=== PATIENT | male | born 1945 | race Hispanic/Latino ===

== ENCOUNTER 2018-05-26 19:06 | Inpatient (IN) | payer SELFPAY ==
[~2018-05-26 19:06] MED LIST: ISOVUE-370 76%-LOCM 1 ML ONE
[2018-05-26 19:41] LABS: #Eosinphils 0.4 thou/uL (0.0-0.7); #Lymphocytes 2.4 thou/uL (1.20-3.40); #Monocytes 0.8 thou/uL (0.11-0.59); #Neutrophils 3.4 thou/uL (1.40-6.50); %Basophils 0.7 % (0.0-1.0); %Eosinophils 6.1 % (0.0-10.0); %Lymphocytes 33.7 % (21.0-51.0); %Monocytes 11.5 % (0.0-10.0); %Neutrophils 48.1 % (42.0-75.0); Hemoglobin 13.8 g/dL (14.0-18.0); Mean Corpuscular Hemoglobin 31.3 pg (27.0-31.0); Mean Corpuscular Volume 94.9 fL (78.0-98.0); Mean Platelet Volume 9.1 fL (7.4-10.4); Platelet Count 197 thou/uL (130-400); RBC Distribution Width 12.1 % (11.5-14.5); Red Blood Cell (RBC) Count 4.41 mill/uL (4.70-6.10)
[2018-05-26 20:10] LABS: ALT (SGPT) 30 U/L (8-55); Albumin 4.2 g/dL (3.4-4.8); Alkaline Phosphatase 96 U/L (40-150); Anion Gap 13 mmol/L (10-20); BUN (Urea Nitrogen) 8 mg/dL (8.4-25.7); Bilirubin, Total 0.4 mg/dL (0.2-1.2); Calc. Creatinine Clearance 0 mL/min (70-130); Carbon Dioxide 23 mmol/L (23-31); Chloride 107 mmol/L (98-107); Estimated GFR-MDRD 73; Globulin 3.1 g/dL (2.4-3.5); Glucose 143 mg/dL (83-110); Lipase 31 U/L (8-78); Potassium 3.2 mmol/L (3.5-5.1); Protein, Total 7.3 g/dL (5.8-8.1); Sodium 140 mmol/L (136-145)
--- NOTE | 2018-05-26 20:22 | RAD ---
EXAM: CHEST ONE VIEW 05/26/18 HISTORY: Chest pain for two weeks. FINDINGS: Monitor leads overlie the chest. Borderline sized heart. Mild biapical pleural thickening. No conflue nt pneumonia, overt edema, or pleural effusions. IMPRESSION: No significant acute intrathoracic disease. POS: [facility]
[2018-05-26 20:40] LABS: AST (SGOT) 38 U/L (5-34)
[2018-05-26] MEDS ORDERED: cloNIDine 0.1 MG TAB ONE (21:01)
[2018-05-26] MEDS ORDERED: Furosemide 40 MG/4 ML VIAL ONE (21:01)
[2018-05-26] MEDS ORDERED: Furosemide 20 MG/2 ML VIAL ONE (21:01)
[2018-05-26] MEDS ORDERED: Nitroglycerin 2% Ointment 1 INCH/1 GM Packet ONE (21:01)
--- NOTE | 2018-05-26 21:39 | CT ---
EXAM: CT ANGIOGRAM CHEST WITH 3D RENDERIN05/26/18 HISTORY: Dyspnea and shortness of breath. Increasing dyspnea on exertion. There is some minimal parenchymal changes in the lower lobes which are somewhat linear. Evidence for minimal subsegmental atelectasis or possibly mild pneumonitis, more so on the right base. No evidence for confluent lobar pneumonia. No CT evidence for acute pulmonary embolism. No evidence for aortic a neurysm. No significant pleural effusion or pericardial effusion. Small gallbladder stone without lisa dence for acute cholecystitis. IMPRESSION: Minimal linear parenchymal changes in the lung bases, more so on the right base, possibly chronic howard nge versus subsegmental atelectasis versus mild pneumonitis without evidence for confluent pneumonia. No convincing CT evidence for acute pulmonary embolism. No evidence for aortic aneurysm. Small galls tone. POS: [facility]
[2018-05-26 22:50] LABS: Troponin I 0.026 ng/mL (< 0.028)
[2018-05-26] MEDS ORDERED: Ondansetron PF 4 MG/2 ML Vial IVP PRN (23:59)
[2018-05-26] MEDS ORDERED: Acetaminophen 325 MG TAB PO PRN (23:59)
[2018-05-26] MEDS ORDERED: Ondansetron ODT 4 MG TAB SL PRN (23:59)
[2018-05-27 02:45] LABS: Troponin I 0.026 ng/mL (< 0.028)
[2018-05-27] MEDS ORDERED: Bisacodyl 5 MG TAB PO PRN (03:29)
[2018-05-27] MEDS ORDERED: Zolpidem Tartrate 5 MG TAB PO PRN (03:29)
[2018-05-27] MEDS ORDERED: Senokot S 8.6-50 MG TAB PO PRN (03:29)
[2018-05-27 05:17] LABS: ALT (SGPT) 29 U/L (8-55); AST (SGOT) 32 U/L (5-34); Albumin 3.9 g/dL (3.4-4.8); Alkaline Phosphatase 82 U/L (40-150); Anion Gap 14 mmol/L (10-20); BUN (Urea Nitrogen) 9 mg/dL (8.4-25.7); Bilirubin, Total 0.4 mg/dL (0.2-1.2); Calc. Creatinine Clearance 69 mL/min (70-130); Calcium 8.7 mg/dL (7.8-10.44); Carbon Dioxide 22 mmol/L (23-31); Chloride 108 mmol/L (98-107); Estimated GFR-MDRD 71; Globulin 2.9 g/dL (2.4-3.5); Glucose 99 mg/dL (83-110); Magnesium 2.1 mg/dL (1.6-2.6); Potassium 3.5 mmol/L (3.5-5.1); Protein, Total 6.8 g/dL (5.8-8.1); Sodium 140 mmol/L (136-145)
[2018-05-27] MEDS: Enoxaparin Sodium 40 MG/0.4 ML SYRINGE SC SCH (08:21)
[2018-05-27] MEDS: Spironolactone 25 MG TAB PO SCH (08:21)
[2018-05-27] MEDS: Losartan 25 MG TAB PO SCH (08:21)
--- NOTE | 2018-05-27 09:08 | HP ---
CHIEF COMPLAINT: Shortness of breath. HISTORY OF PRESENT ILLNESS: This is a 72-year-old Burmese-speaking male with a daughter by the bedside, presenting with shortness of breath and increased dyspnea on exertion. The patient does have a past medical history of hypertension and extensive smoking history. Otherwise, the patient does not have any significant past medical history, presenting with shortness of breath, which has been ongoing in the past couple of months. Per the daughter, the patient has been having shortness of breath and has not progressively gotten worse to the point that in the past 2 days, the patient gets severe shortness of breath with ambulation and sleeping flat. Per medical records, the patient also endorsed experiencing shortness of breath when he moves around in his house. Otherwise, the patient denies any fever, chills, cough, palpitations, chest pain, abdominal pain, dysuria, hematuria, hematochezia, or melena. REVIEW OF SYSTEMS: Positive for dyspnea on exertion, shortness of breath. Otherwise as documented on the HPI, all systems are reviewed and are negative. PAST MEDICAL HISTORY: Hypertension. FAMILY HISTORY: Reviewed noncontributory to this visit. PAST SURGICAL HISTORY: No surgical history. SOCIAL HISTORY: The patient smokes 1 pack per day. Per daughter, in the past couple of days, the patient has smoked only 1 pack in the last 2 days, but normally the patient smokes 1 pack per day. ALLERGIES: NO KNOWN DRUG ALLERGIES. CURRENT MEDICATIONS: The patient takes, 1. Losartan 50 b.i.d. 2. Spironolactone 25 mg. PHYSICAL EXAMINATION: VITAL SIGNS: The patient's blood pressure is 167/77, pulse of 65, respiratory rate of 20, O2 saturation of 98% room air. GENERAL: The patient is lying in bed, does not appear to be in any distress. HEENT: Normocephalic and atraumatic. Pupils are equally round and reactive to light. Extraocular movements are intact. No scleral icterus. Mucous membranes are moist. NECK: Trachea is midline. Full range of motion. No JVD. LUNGS: Clear to auscultation at the anterior lung coley. On the posterior lung coley, there are no crackles that can be appreciated or any rales. CARDIAC: Positive S1 and S2. Regular rate and rhythm. No murmurs, no gallops, no rubs appreciated. ABDOMEN: Soft, nontender, and nondistended. Positive bowel sounds in all quadrants. EXTREMITIES: A 5/5 upper extremity strength with good pulses bilaterally at the upper extremity. Lower extremities, there is no edema noted, 5/5 lower extremity strength, good pulses at the DP region. NEURO: Cranial nerves 2 through 12 grossly intact. No neurologic deficits noted. SKIN: Warm, dry, and intact. DIAGNOSTIC DATA: A 12-lead EKG shows sinus rhythm with a rate of 60, left axis deviation. Chest x-ray shows no cardiomegaly, no congestive heart failure, no effusions, no free air. LABORATORY DATA: WBC is 7.0, hemoglobin is 13.8, hematocrit is 41.8, platelet count is 197. D-dimer is 0.74. Sodium is 140, potassium is 3.2, chloride is 107, carbon dioxide of 23, anion gap of 13, BUN is 8, creatinine is 1.0, GFR is 73, glucose is 143, AST is 38, ALT is 30. BNP is 417.9. Troponin is 0.018 x3 is negative. TSH is 8.3720. ASSESSMENT AND PLAN: 1. Shortness of breath, likely due to new onset chronic obstructive pulmonary disease. At this point, the patient stated that he has never had the symptoms of shortness of breath diagnosed before, and the patient has extensive smoking history. Therefore, the patient's shortness of breath might be likely due to chronic obstructive pulmonary disease. However, the patient's BNP is also elevated at 412, but the patient does not have any overt clinical symptoms of heart failure. At this point, we have consulted Cardiology. We will follow up with their recommendations. We will continue to monitor the patient with the patient's respiratory treatments. 2. History of hypertension. Currently, the patient's blood pressure is 167 systolic. We are going to continue the patient on his home medications. We will monitor the patient's blood pressure closely, and we will treat accordingly. 3. Elevated TSH. At this point, we will follow up with T4. We will continue to monitor the patient, and we will advise the patient to follow up with his primary care physician. 4. Deep venous thrombosis/gastrointestinal prophylaxis. Job ID: [id number]
[2018-05-28] MEDS: Losartan 25 MG TAB PO SCH (10:09)
[2018-05-28] MEDS: Enoxaparin Sodium 40 MG/0.4 ML SYRINGE SC SCH (10:09)
[2018-05-28] MEDS: Spironolactone 25 MG TAB PO SCH (10:09)
--- NOTE | 2018-05-28 14:03 | PDOC.PN ---
- Subjective Encounter Start Date: 05/28/18 Encounter Start Time: 14:01 Patient lying in bed with several family members at bedside. Workforce Staffing Advisor required to communicate with patient. He denies chest pain, shortness of breath improved. No Abdominal pain. Echo revealed preserved EF but did show severe aortic stenosis and moderate mitral regurg. - Objective Resuscitation Status - Order Detail: 05/27/18 03:29 Resuscitation Status Routine Resuscitation Status: FULL: Full Resuscitation MAR Reviewed: Yes Vital Signs & Weight: Vital Signs (12 hours) Temp Pulse Resp BP Pulse Ox 05/28/18 11:27 97.5 F L 65 20 145/62 H 96 05/28/18 07:25 98.1 F 67 20 123/60 96 05/28/18 04:26 97.9 F 64 18 134/60 97 Weight Weight 164 lb I&O: 05/27/18 05/28/18 05/29/18 06:59 06:59 06:59 Intake Total 350 1710 Output Total 950 Balance -600 1710 Result Diagrams: 05/26/18 19:26 05/27/18 04:31 Radiology Reviewed by me: Yes Phys Exam - Physical Examination Constitutional: NAD Northern Irish speaking HEENT: PERRLA, moist MMs, oral pharynx no lesions Neck: no nodes, no JVD, supple, full ROM Respiratory: no wheezing, no rales, no rhonchi, clear to auscultation bilateral Cardiovascular: RRR, no rub 3/6 systolic murmur Gastrointestinal: soft, non-tender, positive bowel sounds Musculoskeletal: no edema, pulses present Neurological: non-focal, normal sensation, moves all 4 limbs Lymphatic: no nodes Psychiatric: normal affect, A&O x 3 Skin: no rash, normal turgor, cap refill <2 seconds Dx/Plan (1) Severe aortic stenosis Code(s): I35.0 - NONRHEUMATIC AORTIC (VALVE) STENOSIS Status: Acute (2) Moderate mitral regurgitation Code(s): I34.0 - NONRHEUMATIC MITRAL (VALVE) INSUFFICIENCY Status: Acute (3) CHF (congestive heart failure) Code(s): I50.9 - HEART FAILURE, UNSPECIFIED Status: Acute (4) Hypertension Code(s): I10 - ESSENTIAL (PRIMARY) HYPERTENSION Status: Acute (5) COPD (chronic obstructive pulmonary disease) Status: Acute - Plan cont current plan of care, plan discussed w/ family, DVT proph w/lovenox * Continue medical management * Echo results explained to patient and family, EF 50-55% with severe and mod MR * Cardiology services following * Likely discharged if stable from cardiology
--- NOTE | 2018-05-28 16:29 | CON ---
DATE OF CONSULTATION: HISTORY OF PRESENT ILLNESS: Mr. Yoshi Lara is a 72-year-old male, who only speaks Greenlandic. Most of the history is provided from the hospital record. He has been having problems with exertional SOB and chest pressure. Over the 2 days prior to admission, he was unable to sleep flat. He denies any history of syncope or peripheral edema. PAST MEDICAL HISTORY: Hypertension. MEDICATIONS: 1. Losartan 50 mg q.a.m. 2. Spironolactone 25 daily. ALLERGIES: NONE. SOCIAL HISTORY: He smokes 1 pack per day. PHYSICAL EXAMINATION: VITAL SIGNS: Blood pressure 145/62 and pulse of 65. HEENT: PERRL. NECK: Supple. CHEST: Clear. CARDIAC: S1 and S2 normal. There is no S3 or S4. There is a 2/6 systolic ejection murmur in the aortic area. ABDOMEN: Normal bowel sounds without tenderness or organomegaly. EXTREMITIES: Revealed no clubbing, cyanosis, or edema. NEUROLOGIC: Grossly intact. SKIN: Warm and dry. LABORATORY DATA: There is no EKG on the chart. Echocardiogram revealed moderate concentric left ventricular hypertrophy with ejection fraction of 55% to 60%, moderate mitral regurgitation, severe aortic stenosis with a peak gradient of 84 mm, mean gradient of 53 mm, moderate aortic insufficiency and mild tricuspid regurgitation. Sodium 140, potassium 3.5, chloride 108, carbon dioxide 22, BUN 9, and creatinine 1.03. BNP 417.9. TSH is elevated; however, free T4 is normal. Hemoglobin 13.8, hematocrit 41.8, white count 7000, and platelets 197,000. D- dimer 0.74. Chest x-ray was unremarkable. CT angiogram of the chest revealed no evidence of pulmonary embolism. A small gallstone was seen. IMPRESSION: 1. Dyspnea on exertion secondary to severe aortic stenosis. 2. Hypertension. 3. Smoker. PLAN: Fasting lipid profile will be obtained. Pulmonary function testing and carotid Doppler examination will be performed. Certainly consideration is to be given to cardiac catheterization to define his coronary anatomy and then consideration of aortic valve replacement. We will discuss this once the above tests have resulted. Also, he will placed on low-dose beta xiomara and the Aldactone will be changed to furosemide. Job ID: [id number] [facility]
[2018-05-28] MEDS: Metoprolol Tartrate 25 MG TAB PO SCH (21:10)
--- NOTE | 2018-05-28 23:01 | ULT ---
CAROTID ARTERIAL DOPPLER ULTRASOUND: Date: 05-28-18 Comparison: None. History: Bruit versus transmitted murmur. Assess for carotid artery stenosis. Technique: Multiplanar grayscale sonographic imaging arterial structures of the neck obtained with co jolanta flow and spectral analysis. FINDINGS: Antegrade blood flow and normal arterial waveforms are documented within the carotid and vertebral sy stem bilaterally. There is atherosclerotic plaque at the origin of the ECA, left greater than right. VESSEL PSV (mm/sec) Right CCA 141 Right ICA 164 Right ECA 132 Left CCA 100 Left ICA 99 Left ECA 195 Right ICA/CCA ratio is 1.2. Left ICA/CCA ratio is 1.0. IMPRESSION: Elevated velocities are noted within the right common and internal carotid artery, correlating with a moderate degree of stenosis, (50-69%). Findings could be best assessed via CT angiogram of the neck. POS: [facility]
[2018-05-29 05:14] LABS: Cardiac Risk 5.4 (Less than 4.5)
[2018-05-29] MEDS: Enoxaparin Sodium 40 MG/0.4 ML SYRINGE SC SCH (08:35)
[2018-05-29] MEDS: Metoprolol Tartrate 25 MG TAB PO SCH ×2 (08:35→21:14)
[2018-05-29] MEDS: Losartan 25 MG TAB PO SCH (08:35)
[2018-05-29] MEDS: Furosemide 20 MG TAB PO SCH (08:35)
[2018-05-29] MEDS ORDERED: Iopamidol 370 76% 100 ML VIAL ONE (11:20)
--- NOTE | 2018-05-29 15:30 | PDOC.PN ---
- Subjective Encounter Start Date: 05/29/18 Encounter Start Time: 14:28 Subjective: Patient resting comfortably and without any complaints. Afebrile. No CP. -: Mild SOB while ambulating yesterday but improved today. No hemoptysis. -: Denies n/v. Eating/drinking. No abdominal pain. Denies PIERSON or dizziness. - Objective Resuscitation Status - Order Detail: 05/27/18 03:29 Resuscitation Status Routine Resuscitation Status: FULL: Full Resuscitation Vital Signs & Weight: Vital Signs (12 hours) Temp Pulse Pulse Pulse Resp BP BP 05/29/18 11:15 98 F 54 L 19 05/29/18 10:06 60 53 L 173/71 H 05/29/18 07:35 98.5 F 60 16 05/29/18 04:00 97.4 F L 62 20 128/62 BP BP Pulse Ox Pulse Ox Pulse Ox 05/29/18 11:15 134/63 98 05/29/18 10:06 160/70 H 99 96 05/29/18 07:35 126/61 97 05/29/18 04:00 97 Weight Weight 164 lb 12.8 oz I&O: 05/28/18 05/29/18 05/30/18 06:59 06:59 06:59 Intake Total 1710 1165 240 Output Total 275 Balance 1710 890 240 Result Diagrams: 05/26/18 19:26 05/27/18 04:31 Phys Exam - Physical Examination Constitutional: NAD HEENT: PERRLA, moist MMs, oral pharynx no lesions Neck: no nodes, no JVD, supple, full ROM Respiratory: no wheezing, clear to auscultation bilateral Cardiovascular: RRR Gastrointestinal: soft, non-tender Musculoskeletal: no edema no calf tenderness Neurological: non-focal, normal sensation, moves all 4 limbs Psychiatric: normal affect, A&O x 3 Skin: no rash, normal turgor Dx/Plan (1) CHF (congestive heart failure) Code(s): I50.9 - HEART FAILURE, UNSPECIFIED Status: Acute (2) COPD (chronic obstructive pulmonary disease) Status: Chronic (3) Hypertension Code(s): I10 - ESSENTIAL (PRIMARY) HYPERTENSION Status: Chronic (4) Moderate mitral regurgitation Code(s): I34.0 - NONRHEUMATIC MITRAL (VALVE) INSUFFICIENCY Status: Chronic (5) Severe aortic stenosis Code(s): I35.0 - NONRHEUMATIC AORTIC (VALVE) STENOSIS Status: Chronic - Plan cont current plan of care S/p Echo: EF 55-60%, severe . For possible Cath. -: Awaiting PFTs as per Dr. Moon. -: S/p carotid US: Rt ICA with mod sternosis. CTA Neck advised. * .
[2018-05-29] MEDS ORDERED: Communication Order-Pharmacy FS SCH (17:30)
--- NOTE | 2018-05-29 21:59 | CT ---
CT ANGIOGRAM NECK WITH CONTRAST: 05/29/2018 HISTORY: A 72-year-old male with carotid bruit and evidence for moderate right carotid stenosis on carotid Dop pler ultrasound from yesterday. TECHNIQUE: IV injection of 100 mL of Isovue-370. Arterial bolus chasing technique scan performed from the aortopulmonic window to the skull base. Cor onal and sagittal 3D MIP reconstructions. FINDINGS: There is limited imaging of very large, dilated blood vessels, occupying a significant portion of the right middle cranial fossa, with multiple chambers that communicate with dilated right cavernous sin us vessels which surround the right cavernous carotid artery. Right vertebral artery: Multifocal moderate to severe stenoses in the proximal cervical portion. No high-grade stenosis in the mid and distal cervical or intracranial portions. Left vertebral artery: Normal caliber mid cervical and intracranial portion. There is severe stenos is at the origin due to noncalcified plaque (coronal image 50 of 113, series 300). There is post lluvia notic dilatation, followed by a tortuous loop. Then, approximately 3 cm of the cervical left vertebr al artery is mildly to moderately stenotic. The distal two-third of the left cervical vertebral haley ry and the intracranial left vertebral artery are of normal caliber. Brachiocephalic artery: The origin is partially obscured by beam hardening artifact from dense contr ast bolus material in the adjacent superior vena cava and left brachiocephalic vein. It is suspected that there is a high-grade stenosis at the origin of the innominate artery. No stenosis in the rest of the innominate artery. Right subclavian: Normal caliber. Left subclavian: No high-grad stenosis at the origin. Atherosclerotic irregularity at the mid porti on, distal to the take-off of the thyrocervical trunk. The distal portion is obscured by dense contr ast material in the adjacent left subclavian and axillary veins. Left common carotid: The origin is obscured by beam hardening artifact from adjacent dense contrast bolus material in the left subclavian and brachiocephalic veins. No high-grade stenosis in the rest of the left common carotid. Right common carotid: normal. Right internal carotid: Calcified plaque causing mild stenosis at the proximal PAVAN. The rest of th e cervical right internal carotid artery is diffusely ectatic. Left internal carotid: No high-grade stenosis identified. IMPRESSION: 1. Very large, multiseptated, severely dilated intracranial blood vessels in the right middle crania l fossa, only partially imaged, arising from the region of the right cavernous sinus. These could re present very severe venous varices. This would be very unusual for aneurysm of the cavernous carotid artery. Alternatively, these is a possibility of carotid-cavernous fistula that could conceivably c ause these very large varices, although that would be highly unusual. The images do not extend super iorly enough to demonstrate the superior ophthalmic vein. Further evaluation with dedicated CT angio gram of the head with contrast is recommended in 72 hours (to allow time for the kidneys to recover f rom this intravenous contrast bolus). 2. Some of the arteries at the upper chest and thoracic inlet are obscured by the dense contrast keyona us in the left axillary and subclavian veins, the brachiocephalic vein, and the superior vena cava. 3. There are suspected to be high-grade stenoses due to atherosclerotic plaque at the right brachioc ephalic artery and left common carotid artery. 4. Definite high-grade, severe stenosis at the origin of the left vertebral artery. 5. Ectasia of the right internal carotid artery. 6. The patient may have a connective tissue disease causing these. POS: [facility]
[2018-05-30] MEDS: Metoprolol Tartrate 25 MG TAB PO SCH ×2 (05:55→20:16)
[2018-05-30] MEDS: Losartan 25 MG TAB PO SCH (05:55)
[2018-05-30] MEDS ORDERED: Sodium Chloride 0.9% 1,000 ML IV SCH ×2 (06:00→08:12)
[2018-05-30] MEDS ORDERED: Heparin 10,000 UNITS/1 ML VIAL ONE (07:21)
[2018-05-30] MEDS ORDERED: Midazolam HCl 2 mg/2 ml Vial ONE (07:21)
[2018-05-30] MEDS ORDERED: Fentanyl 100 MCG/2 ML VIAL ONE (07:21)
[2018-05-30] MEDS: Furosemide 20 MG TAB PO SCH (07:36)
[2018-05-30] MEDS ORDERED: Protamine Sulfate 50 MG/5 ML VIAL ONE (07:49)
[2018-05-30] MEDS ORDERED: Nitroglycerin 0.4 MG TAB (25 Tab Bottle) SL PRN (08:10)
[2018-05-30] MEDS ORDERED: traMADol HCl 50 MG TAB PO PRN (08:10)
[2018-05-30] MEDS ORDERED: Acetaminophen/Codeine 30-300mg Tablet PO PRN ×2 (08:10)
[2018-05-30] MEDS ORDERED: Sodium Chloride 0.9% 200 ML IV SCH (08:15)
[2018-05-30 09:11] LABS: #Basophils 0.1 thou/uL (0.0-0.2); #Eosinphils 0.4 thou/uL (0.0-0.7); #Lymphocytes 1.4 thou/uL (1.20-3.40); #Monocytes 0.8 thou/uL (0.11-0.59); #Neutrophils 5.2 thou/uL (1.40-6.50); %Basophils 1.1 % (0.0-1.0); %Eosinophils 5.1 % (0.0-10.0); %Lymphocytes 18.1 % (21.0-51.0); %Monocytes 9.6 % (0.0-10.0); Hemoglobin 13.5 g/dL (14.0-18.0); Mean Corpuscular HGB CONC 33.1 g/dL (32.0-36.0); Mean Corpuscular Hemoglobin 31.1 pg (27.0-31.0); Mean Corpuscular Volume 93.9 fL (78.0-98.0); Mean Platelet Volume 9.2 fL (7.4-10.4); Platelet Count 198 thou/uL (130-400); RBC Distribution Width 11.8 % (11.5-14.5); Red Blood Cell (RBC) Count 4.35 mill/uL (4.70-6.10); White Blood Cell (WBC) Count 7.8 thou/uL (4.8-10.8)
[2018-05-30 09:33] LABS: ALT (SGPT) 22 U/L (8-55); AST (SGOT) 23 U/L (5-34); Albumin 3.9 g/dL (3.4-4.8); Alkaline Phosphatase 81 U/L (40-150); Anion Gap 10 mmol/L (10-20); BUN (Urea Nitrogen) 17 mg/dL (8.4-25.7); Bilirubin, Total 0.4 mg/dL (0.2-1.2); Calc. Creatinine Clearance 63 mL/min (70-130); Calcium 9.4 mg/dL (7.8-10.44); Carbon Dioxide 23 mmol/L (23-31); Chloride 107 mmol/L (98-107); Estimated GFR-MDRD 65; Globulin 2.8 g/dL (2.4-3.5); Glucose 103 mg/dL (83-110); Potassium 4.4 mmol/L (3.5-5.1); Protein, Total 6.7 g/dL (5.8-8.1); Sodium 136 mmol/L (136-145)
--- NOTE | 2018-05-30 10:30 | PDOC.PN ---
- Subjective Encounter Start Date: 05/30/18 Encounter Start Time: 10:29 Subjective: Patient feeling well, resting comfortably. No complaints. Denies any CP. -: No shortness of breath, cough or hemoptysis. No headaches, dizzines. -: No vision changes. No n/v. No abdominal pain. - Objective Resuscitation Status - Order Detail: 05/27/18 03:29 Resuscitation Status Routine Resuscitation Status: FULL: Full Resuscitation Vital Signs & Weight: Vital Signs (12 hours) Temp Pulse Resp BP Pulse Ox 05/30/18 05:35 98.6 F 60 14 145/65 H 93 L 05/29/18 23:42 97.6 F 55 L 16 163/70 H 98 Weight Weight 164 lb I&O: 05/29/18 05/30/18 05/31/18 06:59 06:59 06:59 Intake Total 1165 600 Output Total 275 Balance 890 600 Result Diagrams: 05/30/18 08:45 05/30/18 08:45 Phys Exam - Physical Examination Constitutional: NAD HEENT: PERRLA, oral pharynx no lesions Neck: no nodes, no JVD, full ROM Respiratory: no wheezing, no rales, clear to auscultation bilateral Cardiovascular: RRR, no significant murmur Gastrointestinal: soft, non-tender, no distention Musculoskeletal: no edema, pulses present Neurological: non-focal, normal sensation, moves all 4 limbs Lymphatic: no nodes Psychiatric: normal affect, A&O x 3 Skin: no rash, normal turgor Dx/Plan (1) CHF (congestive heart failure) Code(s): I50.9 - HEART FAILURE, UNSPECIFIED Status: Acute (2) COPD (chronic obstructive pulmonary disease) Status: Chronic (3) Hypertension Code(s): I10 - ESSENTIAL (PRIMARY) HYPERTENSION Status: Chronic (4) Moderate mitral regurgitation Code(s): I34.0 - NONRHEUMATIC MITRAL (VALVE) INSUFFICIENCY Status: Chronic (5) Severe aortic stenosis Code(s): I35.0 - NONRHEUMATIC AORTIC (VALVE) STENOSIS Status: Chronic (6) Hypothyroid Code(s): E03.9 - HYPOTHYROIDISM, UNSPECIFIED Status: Acute (7) Vasculopathy Code(s): I99.9 - UNSPECIFIED DISORDER OF CIRCULATORY SYSTEM Status: Acute - Plan cont current plan of care CTA Neck: Findings suggestive of connective tissue disease. CTA Head. -: Check ESR, CRP, MADRIGAL-ANCA. -: Awaiting PFTs. For possible cath/AV replacement. -: Further management as per cardio/cardiovascular sugery. -: Synthroid [address] Wilkins who agrees with plan above. Patient for transition to inpatient given severe with vasculopathy. Undergoing assessment for possible AV replacement.
[2018-05-30] MEDS ORDERED: Iopamidol 370 76% 100 ML VIAL ONE (13:40)
[2018-05-30] MEDS ORDERED: Iopamidol 370 76% 50 ML VIAL FS ONE (13:40)
[2018-05-30] MEDS: Atorvastatin Calcium 40 MG TAB PO SCH (20:17)
[2018-05-31] MEDS: Levothyroxine Sodium 25 MCG TAB PO SCH (05:33)
[2018-05-31 05:47] LABS: #Basophils 0.1 thou/uL (0.0-0.2); #Eosinphils 0.2 thou/uL (0.0-0.7); #Lymphocytes 1.6 thou/uL (1.20-3.40); #Monocytes 0.8 thou/uL (0.11-0.59); #Neutrophils 5.5 thou/uL (1.40-6.50); %Basophils 0.7 % (0.0-1.0); %Eosinophils 2.6 % (0.0-10.0); %Lymphocytes 19.5 % (21.0-51.0); %Monocytes 9.6 % (0.0-10.0); %Neutrophils 67.7 % (42.0-75.0); Hemoglobin 13.5 g/dL (14.0-18.0); Mean Corpuscular HGB CONC 33.9 g/dL (32.0-36.0); Mean Corpuscular Hemoglobin 31.8 pg (27.0-31.0); Mean Corpuscular Volume 93.8 fL (78.0-98.0); Mean Platelet Volume 9.5 fL (7.4-10.4); Platelet Count 181 thou/uL (130-400); RBC Distribution Width 11.8 % (11.5-14.5); Red Blood Cell (RBC) Count 4.24 mill/uL (4.70-6.10); White Blood Cell (WBC) Count 8.2 thou/uL (4.8-10.8)
[2018-05-31 06:06] LABS: ALT (SGPT) 21 U/L (8-55); AST (SGOT) 24 U/L (5-34); Albumin 3.8 g/dL (3.4-4.8); Alkaline Phosphatase 82 U/L (40-150); Anion Gap 11 mmol/L (10-20); BUN (Urea Nitrogen) 13 mg/dL (8.4-25.7); Bilirubin, Total 0.7 mg/dL (0.2-1.2); Calc. Creatinine Clearance 73 mL/min (70-130); Calcium 9.1 mg/dL (7.8-10.44); Carbon Dioxide 24 mmol/L (23-31); Cardiac Risk 5.2 (Less than 4.5); Chloride 106 mmol/L (98-107); Cholesterol 193 mg/dl (< 200 Desired); Estimated GFR-MDRD 79; Globulin 2.9 g/dL (2.4-3.5); Glucose 117 mg/dL (83-110); HDL Cholesterol 37 mg/dL (>60 Neg Risk); LDL Cholesterol, Calculated 132 mg/dL; Protein, Total 6.7 g/dL (5.8-8.1); Sodium 137 mmol/L (136-145); Triglycerides 121 mg/dL (Less than 150)
[2018-05-31] MEDS: Losartan 25 MG TAB PO SCH (09:18)
[2018-05-31] MEDS: Metoprolol Tartrate 25 MG TAB PO SCH ×2 (09:19→20:13)
[2018-05-31] MEDS: Furosemide 20 MG TAB PO SCH (09:19)
--- NOTE | 2018-05-31 09:40 | CT ---
CT ANGIOGRAM OF THE HEAD NONCONTRAST HEAD CT: History: Abnormal vessels noted in the right middle cranial fossa on CT angiogram of the neck. Evalua tion was incomplete on the exam. Comparison: 05-29-18 Technique: CT angiogram of the head was performed in the axial plane. 3D reformatted images are submi tted for interpretation. FINDINGS: Noncontrast head CT demonstrates mildly hyperdense serpiginous foci involving the right middle crania l fossa. These hypodense foci are extraaxial in location. No acute parenchymal hemorrhage. No extraax ial hematoma. There is mild right to left subfalcine herniation measuring 6 mm. Mild effacement of th e right cerebral sulci at the level of the moravian and frontal lobe. Calvarium is intact. Mild mucosal disease of the right maxillary sinus. Post contrast head CT demonstrates appropriate enhancement of the brain parenchyma. There is preserva tion of the cortical hung white matter differentiation. CT ANGIOGRAM: The distal cervical internal carotid arteries are patent. The right internal carotid artery is larger than the contralateral side. There is a tangle of vessels in the right cavernous sinus, right middle cranial fossa, right temporal, and frontal lobes. 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 The nidus is quite large and appears to involve the right MCA distribution. This arterial venous malformation is presumed to be fed from the right middle cerebral artery. There are multiple deep and superficial draining veins. There is venous drainage to the right internal cere bral vein. Additionally, there appears to be venous drainage into the vein of [place] and vein of Lab be. The right transverse sinus, sigmoid sinus, and jugular vein are significantly larger than the con tralateral side. A definite left jugular fossa is difficult to appreciate. The left jugular vein may be markedly diminutive versus congenially absent. There does appear to be increased vascular flow in the right cavernous sinus suggesting a component o f venous drainage secondary to the arterial venous malformation. A carotid cavernous fistula is less favored, given the lack of ophthalmic vein dilation. 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 The supply appears to be coming from the right middle cerebra l artery. A large tangle of vessels in the right MCA distribution. There appear to be multiple deep a nd superficial draining veins. There is also prominence in the right cavernous sinus. The right trans verse sinus, sigmoid sinus, and proximal jugular vein are much larger than the contralateral side. Th e left cerebral venous drainage may be congenitially absent versus markedly diminutive. POS: [facility]
--- NOTE | 2018-05-31 11:00 | PDOC.PN ---
- Subjective Encounter Start Date: 05/31/18 Encounter Start Time: 07:40 -: old records requested/rev Patient seen and examined. No new complaints. No overnight events - Objective Resuscitation Status - Order Detail: 05/27/18 03:29 Resuscitation Status Routine Resuscitation Status: FULL: Full Resuscitation MAR Reviewed: Yes Vital Signs & Weight: Vital Signs (12 hours) Temp Pulse Resp BP Pulse Ox 05/31/18 09:19 97 05/31/18 07:49 98.1 F 63 16 150/67 H 97 05/31/18 04:00 99.0 F 61 18 139/62 92 L 05/30/18 23:35 97.8 F 60 16 142/63 H 95 Weight Weight 159 lb 9.6 oz I&O: 05/30/18 05/31/18 06/01/18 06:59 06:59 06:59 Intake Total 600 1119 Balance 600 1119 Result Diagrams: 05/31/18 05:08 05/31/18 05:08 Radiology Reviewed by me: Yes EKG Reviewed by me: Yes (nsr) Phys Exam - Physical Examination Constitutional: NAD HEENT: PERRLA, moist MMs, sclera anicteric Neck: no JVD, supple Respiratory: no wheezing, no rales, no rhonchi Cardiovascular: RRR, no rub SM+ at aortic area SM + at mitral area Gastrointestinal: soft, non-tender, no distention, positive bowel sounds Musculoskeletal: no edema, pulses present Neurological: non-focal, normal sensation, moves all 4 limbs Lymphatic: no nodes Psychiatric: normal affect, A&O x 3 Skin: no rash, normal turgor Dx/Plan (1) Severe aortic stenosis Code(s): I35.0 - NONRHEUMATIC AORTIC (VALVE) STENOSIS Status: Chronic (2) Moderate mitral regurgitation Code(s): I34.0 - NONRHEUMATIC MITRAL (VALVE) INSUFFICIENCY Status: Chronic (3) Vasculopathy Code(s): I99.9 - UNSPECIFIED DISORDER OF CIRCULATORY SYSTEM Status: Acute (4) Vertebral artery stenosis Code(s): I65.09 - OCCLUSION AND STENOSIS OF UNSPECIFIED VERTEBRAL ARTERY Status: Acute Qualifiers: Laterality: left Qualified Code(s): I65.02 - Occlusion and stenosis of left vertebral artery (5) COPD (chronic obstructive pulmonary disease) Status: Chronic (6) Hypertension Code(s): I10 - ESSENTIAL (PRIMARY) HYPERTENSION Status: Chronic (7) Hypothyroidism Code(s): E03.9 - HYPOTHYROIDISM, UNSPECIFIED Status: Chronic (8) AVM (arteriovenous malformation) brain Code(s): Q28.2 - ARTERIOVENOUS MALFORMATION OF CEREBRAL VESSELS Status: Chronic - Plan cont current plan of care, plan discussed w/ family * consult neurosurgery for AVM in cerebral area * cardiovascular consulted for * medication reviewed as below * symptomatic treatment * discussed with family. Review of Systems - Review of Systems ENT: negative: Ear Pain, Ear Discharge, Nose Pain, Nose Discharge, Nose Congestion, Mouth Pain, Mouth Swelling, Throat Pain, Throat Swelling, Other Respiratory: negative: Cough, Dry, Shortness of Breath, Hemoptysis, SOB with Excertion, Pleuritic Pain, Sputum, Wheezing Cardiovascular: negative: chest pain, palpitations, orthopnea, paroxysmal nocturnal dyspnea, edema, light headedness, other Gastrointestinal: negative: Nausea, Vomiting, Abdominal Pain, Diarrhea, Constipation, Melena, Hematochezia, Other Genitourinary: negative: Dysuria, Frequency, Incontinence, Hematuria, Retention , Other Musculoskeletal: negative: Neck Pain, Shoulder Pain, Arm Pain, Back Pain, Hand Pain, Leg Pain, Foot Pain, Other - Medications/Allergies Allergies/Adverse Reactions: Allergies Allergy/AdvReac Type Severity Reaction Status Date / Time No Known Allergies Allergy Verified 05/26/18 23:30 Medications: Current Medications Acetaminophen/Codeine Phosphate (Tylenol #3) 1 tab PO Q4H PRN PRN Reason: Mild Pain (1-3) Acetaminophen/Codeine Phosphate (Tylenol #3) 2 tab PO Q4H PRN PRN Reason: Moderate Pain (4-6) Aspirin (Aspirin Chewable) 81 mg PO DAILY [facility] Last Admin: 05/31/18 09:19 Dose: 81 mg Atorvastatin Calcium (Lipitor) 40 mg PO HS [facility] Last Admin: 05/30/18 20:17 Dose: 40 mg Bisacodyl (Dulcolax) 10 mg PO DAILYPRN PRN PRN Reason: Constipation Furosemide (Lasix) 20 mg PO DAILY [facility] Last Admin: 05/31/18 09:19 Dose: 20 mg Levothyroxine Sodium (Synthroid) 25 mcg PO 0600 [facility] Last Admin: 05/31/18 05:33 Dose: 25 mcg Losartan Potassium (Cozaar) 50 mg PO DAILY [facility] Last Admin: 05/31/18 09:18 Dose: 50 mg Metoprolol Tartrate (Lopressor) 12.5 mg PO BID [facility] Last Admin: 05/31/18 09:19 Dose: 12.5 mg Nitroglycerin (Nitrostat) 0.4 mg SL Q5MIN PRN PRN Reason: Chest Pain Senna/Docusate Sodium (Senokot S) 2 tab PO BID PRN PRN Reason: Constipation Sodium Chloride (Flush - Normal Saline) 10 ml IVF PRN PRN PRN Reason: Saline Flush Last Admin: 05/27/18 20:31 Dose: 10 ml Tramadol HCl (Ultram) 50 mg PO Q6H PRN PRN Reason: Moderate Pain (4-6) Zolpidem Tartrate (Ambien) 5 mg PO HSPRN PRN PRN Reason: Insomnia
[2018-05-31] MEDS: Atorvastatin Calcium 40 MG TAB PO SCH (20:14)
[2018-06-01 05:36] LABS: #Basophils 0.1 thou/uL (0.0-0.2); #Eosinphils 0.6 thou/uL (0.0-0.7); #Lymphocytes 1.7 thou/uL (1.20-3.40); #Neutrophils 5.5 thou/uL (1.40-6.50); %Eosinophils 6.4 % (0.0-10.0); %Monocytes 11.7 % (0.0-10.0); %Neutrophils 61.8 % (42.0-75.0); Hemoglobin 13.2 g/dL (14.0-18.0); Mean Corpuscular HGB CONC 33.5 g/dL (32.0-36.0); Mean Corpuscular Hemoglobin 31.7 pg (27.0-31.0); Mean Corpuscular Volume 94.5 fL (78.0-98.0); Mean Platelet Volume 9.4 fL (7.4-10.4); Platelet Count 176 thou/uL (130-400); RBC Distribution Width 11.9 % (11.5-14.5); Red Blood Cell (RBC) Count 4.16 mill/uL (4.70-6.10); White Blood Cell (WBC) Count 8.9 thou/uL (4.8-10.8)
[2018-06-01 05:59] LABS: ALT (SGPT) 20 U/L (8-55); AST (SGOT) 26 U/L (5-34); Albumin 3.7 g/dL (3.4-4.8); Alkaline Phosphatase 81 U/L (40-150); Anion Gap 11 mmol/L (10-20); BUN (Urea Nitrogen) 14 mg/dL (8.4-25.7); Bilirubin, Total 0.7 mg/dL (0.2-1.2); Calc. Creatinine Clearance 63 mL/min (70-130); Calcium 9.3 mg/dL (7.8-10.44); Carbon Dioxide 25 mmol/L (23-31); Chloride 106 mmol/L (98-107); Estimated GFR-MDRD 67; Glucose 95 mg/dL (83-110); Potassium 4.4 mmol/L (3.5-5.1); Protein, Total 6.7 g/dL (5.8-8.1); Sodium 138 mmol/L (136-145)
[2018-06-01] MEDS: Levothyroxine Sodium 25 MCG TAB PO SCH (06:11)
[2018-06-01] MEDS: Losartan 25 MG TAB PO SCH (08:48)
[2018-06-01] MEDS: Metoprolol Tartrate 25 MG TAB PO SCH ×2 (08:48→21:14)
[2018-06-01] MEDS: Furosemide 20 MG TAB PO SCH (08:48)
--- NOTE | 2018-06-01 10:19 | PDOC.PN ---
- Subjective Encounter Start Date: 06/01/18 Encounter Start Time: 07:40 Patient seen and examined. No new complaints. No overnight events - Objective Resuscitation Status - Order Detail: 05/27/18 03:29 Resuscitation Status Routine Resuscitation Status: FULL: Full Resuscitation MAR Reviewed: Yes Vital Signs & Weight: Vital Signs (12 hours) Temp Pulse Resp BP Pulse Ox 06/01/18 08:48 94 L 06/01/18 07:38 98.0 F 58 L 18 126/58 L 94 L 06/01/18 02:48 98.1 F 60 17 123/60 97 Weight Weight 159 lb 14.4 oz I&O: 05/31/18 06/01/18 06/02/18 06:59 06:59 06:59 Intake Total 1119 480 Output Total 400 Balance 1119 80 Result Diagrams: 06/01/18 05:00 06/01/18 05:00 EKG Reviewed by me: Yes Phys Exam - Physical Examination Constitutional: NAD HEENT: PERRLA, moist MMs, sclera anicteric Neck: no JVD, supple Respiratory: no wheezing, no rales, no rhonchi Cardiovascular: RRR, no rub SM+ at aortic area Gastrointestinal: soft, non-tender, no distention, positive bowel sounds Musculoskeletal: no edema, pulses present Neurological: non-focal, normal sensation, moves all 4 limbs Lymphatic: no nodes Psychiatric: normal affect, A&O x 3 Skin: no rash, normal turgor Dx/Plan (1) Severe aortic stenosis Code(s): I35.0 - NONRHEUMATIC AORTIC (VALVE) STENOSIS Status: Chronic (2) Moderate mitral regurgitation Code(s): I34.0 - NONRHEUMATIC MITRAL (VALVE) INSUFFICIENCY Status: Chronic (3) Vasculopathy Code(s): I99.9 - UNSPECIFIED DISORDER OF CIRCULATORY SYSTEM Status: Acute (4) Vertebral artery stenosis Code(s): I65.09 - OCCLUSION AND STENOSIS OF UNSPECIFIED VERTEBRAL ARTERY Status: Acute Qualifiers: Laterality: left Qualified Code(s): I65.02 - Occlusion and stenosis of left vertebral artery (5) COPD (chronic obstructive pulmonary disease) Status: Chronic (6) Hypertension Code(s): I10 - ESSENTIAL (PRIMARY) HYPERTENSION Status: Chronic (7) Hypothyroidism Code(s): E03.9 - HYPOTHYROIDISM, UNSPECIFIED Status: Chronic - Plan cont current plan of care * medication reviewed as below * symptomatic treatment * tomorrow plan for aortic valve replacement * spoke with family. Review of Systems - Review of Systems ENT: negative: Ear Pain, Ear Discharge, Nose Pain, Nose Discharge, Nose Congestion, Mouth Pain, Mouth Swelling, Throat Pain, Throat Swelling, Other Respiratory: negative: Cough, Dry, Shortness of Breath, Hemoptysis, SOB with Excertion, Pleuritic Pain, Sputum, Wheezing Cardiovascular: negative: chest pain, palpitations, orthopnea, paroxysmal nocturnal dyspnea, edema, light headedness, other Gastrointestinal: negative: Nausea, Vomiting, Abdominal Pain, Diarrhea, Constipation, Melena, Hematochezia, Other Genitourinary: negative: Dysuria, Frequency, Incontinence, Hematuria, Retention , Other Musculoskeletal: negative: Neck Pain, Shoulder Pain, Arm Pain, Back Pain, Hand Pain, Leg Pain, Foot Pain, Other Skin: negative: Rash, Lesions, Claus, Bruising, Other - Medications/Allergies Allergies/Adverse Reactions: Allergies Allergy/AdvReac Type Severity Reaction Status Date / Time No Known Allergies Allergy Verified 05/26/18 23:30 Medications: Current Medications Acetaminophen/Codeine Phosphate (Tylenol #3) 1 tab PO Q4H PRN PRN Reason: Mild Pain (1-3) Acetaminophen/Codeine Phosphate (Tylenol #3) 2 tab PO Q4H PRN PRN Reason: Moderate Pain (4-6) Aspirin (Aspirin Chewable) 81 mg PO DAILY [facility] Last Admin: 06/01/18 08:48 Dose: 81 mg Atorvastatin Calcium (Lipitor) 40 mg PO HS [facility] Last Admin: 05/31/18 20:14 Dose: 40 mg Bisacodyl (Dulcolax) 10 mg PO DAILYPRN PRN PRN Reason: Constipation Furosemide (Lasix) 20 mg PO DAILY [facility] Last Admin: 06/01/18 08:48 Dose: 20 mg Levothyroxine Sodium (Synthroid) 25 mcg PO 0600 [facility] Last Admin: 06/01/18 06:11 Dose: 25 mcg Losartan Potassium (Cozaar) 50 mg PO DAILY [facility] Last Admin: 06/01/18 08:48 Dose: 50 mg Metoprolol Tartrate (Lopressor) 12.5 mg PO BID [facility] Last Admin: 06/01/18 08:48 Dose: 12.5 mg Nitroglycerin (Nitrostat) 0.4 mg SL Q5MIN PRN PRN Reason: Chest Pain Senna/Docusate Sodium (Senokot S) 2 tab PO BID PRN PRN Reason: Constipation Sodium Chloride (Flush - Normal Saline) 10 ml IVF PRN PRN PRN Reason: Saline Flush Last Admin: 05/27/18 20:31 Dose: 10 ml Tramadol HCl (Ultram) 50 mg PO Q6H PRN PRN Reason: Moderate Pain (4-6) Zolpidem Tartrate (Ambien) 5 mg PO HSPRN PRN PRN Reason: Insomnia
--- NOTE | 2018-06-01 12:17 | PRG ---
DATE OF SERVICE: 06/01/2018 This is a 30-minute initial hospital visit note, in which 30 minutes were spent reviewing the imaging, record evaluation, examination of the patient. Greater than 50% time was spent in counseling on Lonny Valerobrittany Lara. 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 This is an untreatable lesion and I have counseled the family avoidance of any type of treatment. I think, the natural history of the lesion as far as risk of hemorrhage can be minimized by cessation of nicotine use and control of hypertension, but suffice to say, the lesion is substantial in size and again is untreatable. DIAGNOSIS: Arterial venous malformation. Job ID: [id number]
[2018-06-01] MEDS ORDERED: Communication Order-Pharmacy FS ONE (18:07)
[2018-06-01] MEDS: Atorvastatin Calcium 40 MG TAB PO SCH (21:14)
--- NOTE | 2018-06-02 00:36 | CON ---
DATE OF CONSULTATION: HISTORY OF PRESENT ILLNESS: Mr. Lara is a 72-year-old gentleman who has been admitted with shortness of breath and dyspnea on exertion. He underwent workup including an echocardiogram, which shows an aortic stenosis-peak to peak gradient of 84, the peak velocity of 458 and mean gradient of 53, aortic valve area is 1.5. Ejection fraction is 55-60 percent on echocardiogram. Cardiac catheterization was performed showing no significant coronary artery disease. I have been asked to see him to discuss coronary artery bypass grafting. Our discussion was performed with the assistance of an workforce consultant as he is [place] speaking only. PAST MEDICAL HISTORY: Hypertension. PAST SURGICAL HISTORY: None. CURRENT MEDICATIONS: At home: 1. Losartan 50 mg b.i.d. 2. Spironolactone 25 mg daily. ALLERGIES: NONE. SOCIAL HISTORY: He smokes a pack of cigarettes a day. He has no alcohol intake. PHYSICAL EXAMINATION: GENERAL: This is a diminutive gentleman, resting comfortably on the telemetry unit. VITAL SIGNS: Height 5 feet 4 inches, weight is 159 pounds, BSA is 1.8, temperature is 98.1. Pulse is 57, regular. Blood pressure is 106/53. HEENT: Sclerae nonicteric. Pupils equal, round bilaterally. NECK: Supple. He has transmitted bruits. HEART: Rhythm is regular. He has a systolic ejection murmur heard throughout the precordium. ABDOMEN: Soft and nontender. EXTREMITIES: No cyanosis, clubbing, or edema. He has palpable carotid, radial and femoral pulses bilaterally. Carotid ultrasound shows on the right, the peak systolic velocity of 164. On the left, peak systolic velocity of 99. The ratios are normal. The ultrasound was read as 50-69 percent stenosis on the right, which led to a CT angiogram which showed no significant stenosis in the carotid systems. Of note, on the CT angiogram, they noted intercerebral right hemispheric AVM. This was followed up with a dedicated brain CT angiogram. Dr. Perez has seen him and said that it is a non operative finding. The only treatment would be for him to stop smoking. LABORATORY DATA: Of note, his hemoglobin is 13.2, platelet count is 176,000. Creatinine is 1.08. PT/INR normal. ASSESSMENT AND PLAN: Severe aortic stenosis. I have discussed aortic valve replacement with him through an workforce consultant. He is agreeable to proceed. We would plan to replace his valve with a bioprosthetic valve. Risks, benefits, and options had been outlined. Plan for surgery tomorrow. Job ID: [id number]
[2018-06-02] MEDS: Levothyroxine Sodium 25 MCG TAB PO SCH (05:52)
[2018-06-02] MEDS: Losartan 25 MG TAB PO SCH (05:52)
[2018-06-02] MEDS: Metoprolol Tartrate 25 MG TAB PO SCH (05:52)
[2018-06-02] MEDS ORDERED: Albumin 5% 500 ML ONE (08:54)
--- NOTE | 2018-06-02 08:57 | PRG ---
DATE OF SERVICE: 06/02/2018 I discussed the case with this patient with Dr. Yates as the patient will be going for aortic valve replacement and has severe congestive heart failure. The question was whether or not we could do anticoagulation, I would be fine with this. I do not think it results in a concerning risk of hemorrhage given the patient's cardiac issues. Job ID: [id number]
[2018-06-02] MEDS ORDERED: Fentanyl 250 MCG/5 ML VIAL ONE (09:34)
[2018-06-02] MEDS ORDERED: Midazolam HCl 5 mg/5 ml Vial ONE (09:34)
[2018-06-02] MEDS ORDERED: Dexmedetomidine 200 MCG/2 ML VIAL ONE (09:35)
[2018-06-02] MEDS ORDERED: Vecuronium 10 MG VIAL ONE ×2 (09:35→16:08)
[2018-06-02] MEDS ORDERED: Norepinephrine 8 MG/0.9% NS 250 ML ONE (09:35)
[2018-06-02] MEDS ORDERED: Midazolam HCl 2 mg/2 ml Vial ONE (09:54)
[2018-06-02] MEDS ORDERED: Vancomycin HCl 1.5 GM in Sodium Chloride 0.9% 250 ML 300 ML IVPB SCH (10:00)
[2018-06-02] MEDS ORDERED: CEFAZOLIN 1 GM in Sodium Chloride 0.9% 100 ML IVPB SCH (10:00)
--- NOTE | 2018-06-02 10:09 | PDOC.PN ---
- Subjective Encounter Start Date: 06/02/18 Encounter Start Time: 09:10 Patient seen and examined. No new complaints. No overnight events - Objective Resuscitation Status - Order Detail: 05/27/18 03:29 Resuscitation Status Routine Resuscitation Status: FULL: Full Resuscitation MAR Reviewed: Yes Vital Signs & Weight: Vital Signs (12 hours) Temp Pulse Resp BP Pulse Ox 06/02/18 07:18 97.3 F L 56 L 16 135/65 97 06/02/18 04:33 98 06/02/18 04:00 98.6 F 61 15 123/58 L 98 06/01/18 23:42 98 F 56 L 16 121/58 L 98 Weight Weight 162 lb I&O: 06/01/18 06/02/18 06/03/18 06:59 06:59 06:59 Intake Total 480 120 Output Total 400 875 Balance 80 -755 Result Diagrams: 06/01/18 05:00 06/01/18 05:00 EKG Reviewed by me: Yes (nsr) Phys Exam - Physical Examination Constitutional: NAD HEENT: PERRLA, moist MMs, sclera anicteric Neck: no JVD, supple Respiratory: no wheezing, no rales, no rhonchi Cardiovascular: RRR, no rub SM+ Gastrointestinal: soft, non-tender, no distention, positive bowel sounds Musculoskeletal: no edema, pulses present Neurological: non-focal, normal sensation, moves all 4 limbs Lymphatic: no nodes Psychiatric: normal affect, A&O x 3 Skin: no rash, normal turgor Dx/Plan (1) Severe aortic stenosis Code(s): I35.0 - NONRHEUMATIC AORTIC (VALVE) STENOSIS Status: Chronic (2) Moderate mitral regurgitation Code(s): I34.0 - NONRHEUMATIC MITRAL (VALVE) INSUFFICIENCY Status: Chronic (3) Vasculopathy Code(s): I99.9 - UNSPECIFIED DISORDER OF CIRCULATORY SYSTEM Status: Acute (4) Vertebral artery stenosis Code(s): I65.09 - OCCLUSION AND STENOSIS OF UNSPECIFIED VERTEBRAL ARTERY Status: Acute Qualifiers: Laterality: left Qualified Code(s): I65.02 - Occlusion and stenosis of left vertebral artery (5) COPD (chronic obstructive pulmonary disease) Status: Chronic (6) Hypertension Code(s): I10 - ESSENTIAL (PRIMARY) HYPERTENSION Status: Chronic (7) Hypothyroidism Code(s): E03.9 - HYPOTHYROIDISM, UNSPECIFIED Status: Chronic (8) AVM (arteriovenous malformation) brain Code(s): Q28.2 - ARTERIOVENOUS MALFORMATION OF CEREBRAL VESSELS Status: Chronic - Plan cont current plan of care, plan discussed w/ family * medication reviewed as below * symptomatic treatment * today plan for aortic valve replacement * discussed with family bedside. Review of Systems - Review of Systems ENT: negative: Ear Pain, Ear Discharge, Nose Pain, Nose Discharge, Nose Congestion, Mouth Pain, Mouth Swelling, Throat Pain, Throat Swelling, Other Respiratory: negative: Cough, Dry, Shortness of Breath, Hemoptysis, SOB with Excertion, Pleuritic Pain, Sputum, Wheezing Cardiovascular: negative: chest pain, palpitations, orthopnea, paroxysmal nocturnal dyspnea, edema, light headedness, other Gastrointestinal: negative: Nausea, Vomiting, Abdominal Pain, Diarrhea, Constipation, Melena, Hematochezia, Other Genitourinary: negative: Dysuria, Frequency, Incontinence, Hematuria, Retention , Other Musculoskeletal: negative: Neck Pain, Shoulder Pain, Arm Pain, Back Pain, Hand Pain, Leg Pain, Foot Pain, Other - Medications/Allergies Allergies/Adverse Reactions: Allergies Allergy/AdvReac Type Severity Reaction Status Date / Time No Known Allergies Allergy Verified 05/26/18 23:30 Medications: Current Medications Cefazolin Sodium 1 gm/ Sodium (Chloride) 100 mls @ 200 mls/hr IVPB ONCALL-OR RALPH Stop: 06/02/18 12:00 Vancomycin HCl 1.5 gm/ Sodium (Chloride) 300 mls @ 200 mls/hr IVPB ONCALL-OR RALPH Stop: 06/02/18 11:29 Heparin Sodium (Porcine) 30, (000 units/ Sodium Chloride) 1,003 mls @ 0 mls/hr FS WILLCALL RALPH Stop: 06/02/18 18:00 Losartan Potassium (Cozaar) 50 mg PO DAILY [facility] Stop: 06/02/18 12:00 Last Admin: 06/02/18 05:52 Dose: 50 mg Metoprolol Tartrate (Lopressor) 12.5 mg PO BID [facility] Stop: 06/02/18 12:00 Last Admin: 06/02/18 05:52 Dose: 12.5 mg
[2018-06-02] MEDS ORDERED: CEFAZOLIN 2 GM/50 ML BAG ONE (10:14)
[2018-06-02] MEDS ORDERED: Heparin 10,000 UNITS/1 ML VIAL 30,000 UNITS in Sodium Chloride 0.9% 1,000 ML FS SCH (10:15)
[2018-06-02] MEDS ORDERED: ePHEDrine/0.9% NaCl/PF SYRINGE 50 mg/10 ml ONE (10:53)
[2018-06-02] MEDS ORDERED: PHENYLEPHRINE-NS 100 MCG/ML 10 ML SYRINGE ONE (11:08)
[2018-06-02] MEDS ORDERED: Dexamethasone 4 mg/ml Vial ONE (12:37)
[2018-06-02] MEDS ORDERED: Bupivacaine HCl 0.5%/Epinephrine 1:200,000/PF 30 ml Vial ONE (12:37)
[2018-06-02] MEDS ORDERED: hydrALAZINE 20 MG/ML VIAL SLOW IVP PRN (13:38)
[2018-06-02] MEDS ORDERED: Hetastarch 6% 500 ML 500 ML IVPB PRN (13:38)
[2018-06-02] MEDS ORDERED: Bisacodyl 10 MG SUPP PR PRN (13:38)
[2018-06-02] MEDS ORDERED: Fentanyl 100 MCG/2 ML VIAL SLOW IVP PRN ×2 (13:38)
[2018-06-02] MEDS ORDERED: Morphine 4 MG/ML VIAL SLOW IVP PRN (13:38)
[2018-06-02] MEDS ORDERED: Phenylephrine 10 MG/NS 250 ML 250 ML IVPB PRN (13:38)
[2018-06-02] MEDS ORDERED: Guaifenesin DM 100-10/5 ML UDCUP PO PRN (13:38)
[2018-06-02] MEDS ORDERED: D5 1/2 NS w/20 mEq KCL 1,000 ML IV SCH (13:38)
[2018-06-02] MEDS ORDERED: Bisacodyl 5 MG TAB PO PRN (13:38)
[2018-06-02] MEDS ORDERED: Nitroglycerin 50 MG/250 ML BOT 250 ML IVPB PRN (13:38)
[2018-06-02] MEDS ORDERED: Mag-Al 1200 mg/1200 mg/30 ML UDCUP PO PRN (13:38)
[2018-06-02] MEDS ORDERED: CEFAZOLIN/Water 2 GM/20 ML SYRINGE SLOW IVP SCH (13:38)
[2018-06-02] MEDS ORDERED: Ondansetron PF 4 MG/2 ML Vial IVP PRN (13:38)
[2018-06-02] MEDS ORDERED: Potassium Chloride 20 MEQ/100 ML PREMIX BAG IVPB PRN (13:38)
[2018-06-02] MEDS ORDERED: Promethazine HCl 25 MG/ML VIAL IM PRN (13:38)
[2018-06-02] MEDS ORDERED: Acetaminophen 325 MG TAB PO PRN (13:38)
[2018-06-02] MEDS ORDERED: HYDROcodone/Acetaminophen 5/325 mg Tablet PO PRN (13:38)
[2018-06-02] MEDS ORDERED: Dextrose 5% in Water 1,000 ML IV PRN (13:42)
[2018-06-02] MEDS ORDERED: Dextrose 50% Abboject 50 ML SYRINGE SLOW IVP PRN (13:42)
[2018-06-02 14:15] LABS: Base Excess (BEa) -8.2 mEq/L (-2.0 to +3.0); CO2 Tension 45.7 mmHg (35.0-45.0); Calcium, Ionized 1.15 mmol/L (1.12-1.30); Carboxyhemoglobin (COHb) 0.6 gm% (0.0-3.0); O2 Tension (PaO2) 86.2 mmHg (> 70.0); Potassium - ABG Lab 4.17 mmol/L (3.70-5.30); pH, Arterial 7.24 (7.35-7.45)
[2018-06-02 14:16] LABS: ALV-art Gradient 213.175 (0-20); Puncture Site ALINE
[2018-06-02 14:16] LABS: INR-International Normal Ratio 1.5; PTT 44.7 SEC (22.9-36.1); Prothrombin Time 18.1 SEC (12.0-14.7)
[2018-06-02 14:19] LABS: Hemoglobin 13.4 g/dL (14.0-18.0); Mean Corpuscular Hemoglobin 32.3 pg (27.0-31.0); Mean Corpuscular Volume 98.1 fL (78.0-98.0); Mean Platelet Volume 9.5 fL (7.4-10.4); Platelet Count 133 thou/uL (130-400); RBC Distribution Width 11.8 % (11.5-14.5); Red Blood Cell (RBC) Count 4.13 mill/uL (4.70-6.10); White Blood Cell (WBC) Count 20.8 thou/uL (4.8-10.8)
[2018-06-02 14:25] LABS: Anion Gap 15 mmol/L (10-20); BUN (Urea Nitrogen) 11 mg/dL (8.4-25.7); Calc. Creatinine Clearance 72 mL/min (70-130); Calcium 8.5 mg/dL (7.8-10.44); Carbon Dioxide 16 mmol/L (23-31); Chloride 111 mmol/L (98-107); Estimated GFR-MDRD 76; Glucose 162 mg/dL (83-110); Potassium 4.5 mmol/L (3.5-5.1); Sodium 137 mmol/L (136-145)
[2018-06-02 14:49] LABS: Band 5 % (5-11); Eosinophils 1 % (0-10); Lymphocytes 1 % (21-51); MDiff Complete? YES; Monocytes 1 % (0-10); Neutrophil 92 % (42-75); Platelet Morphology Comment Appears Adequate
[2018-06-02 15:06] LABS: Actual Bicarbonate (HCO3a) 18.4 mEq/L (22-28); Base Excess (BEa) -6.8 mEq/L (-2.0 to +3.0); CO2 Tension 36.2 mmHg (35.0-45.0); Calcium, Ionized 1.14 mmol/L (1.12-1.30); Carboxyhemoglobin (COHb) 0.7 gm% (0.0-3.0); Hemoglobin (Hb) 12.7 g/dL (14.0-18.0); O2 Tension (PaO2) 78.5 mmHg (> 70.0); Potassium - ABG Lab 4.24 mmol/L (3.70-5.30); pH, Arterial 7.33 (7.35-7.45)
[2018-06-02 15:09] LABS: Puncture Site ALINE
--- NOTE | 2018-06-02 15:24 | RAD ---
CHEST ONE VIEW: HISTORY: Heart surgery. COMPARISON: 05/26/2018 FINDINGS: The cardiac silhouette is magnified and enlarged. The pulmonary vasculature is at the upper limits o f normal. The mediastinum is midline with new postoperative changes. The tip of the endotracheal catheter is approximately 3 cm above the level of the chuy. The tip of a right subclavian central venous catheter overlies the right atrium. Opaque drains overly the medi astinum. No evidence of pneumothorax. monitor tech leads overly the chest. IMPRESSION: Postoperative changes of the mediastinum with lines and tubes as detailed above. POS: ABISAI
[2018-06-02 15:31] LABS: Cytoplasmic (C-ANCA) <1:20 titer (Neg:<1:20); Myeloperoxidase AutoAbs <9.0 U/mL (0.0-9.0); Perinuclear (P-ANCA) <1:20 titer (Neg:<1:20); Proteinase-3 AutoAbs Less than 3.5 U/mL (0.0-3.5)
[2018-06-02] MEDS ORDERED: Magnesium 5 GM/10 ML VIAL ONE (16:08)
[2018-06-02] MEDS ORDERED: Sodium Bicarb 50 MEQ/50 ML VIAL ONE (16:08)
[2018-06-02] MEDS ORDERED: Lidocaine 2% PF 100 mg/5 ml Syringe ONE (16:08)
[2018-06-02] MEDS ORDERED: Heparin 30,000 units/30 ml VIAL ONE (16:08)
[2018-06-02] MEDS ORDERED: PROPOFOL 200 MG/20 ML VIAL ONE (16:08)
[2018-06-02] MEDS ORDERED: Nitroglycerin 50 MG/250 ML BOT ONE (16:08)
[2018-06-02] MEDS ORDERED: Mannitol 12.5 GM/50 ML ONE (16:08)
[2018-06-02] MEDS ORDERED: Potassium Chloride 60 MEQ/30 ML VIAL ONE (16:08)
[2018-06-02] MEDS ORDERED: Protamine Sulfate 250 MG/25 ML VIAL ONE (16:08)
[2018-06-02] MEDS ORDERED: Glycopyrrolate 0.2 MG/ML 5 ML SYRINGE ONE (16:08)
[2018-06-02] MEDS ORDERED: Thrombin 5000 UNITS/5 ML VIAL ONE (16:08)
[2018-06-02] MEDS ORDERED: Calcium Chloride 1 GM/10 ML Abboject SYRINGE ONE (16:08)
[2018-06-02] MEDS ORDERED: Aminocaproic Acid 5 GM/20 ML VIAL ONE (16:08)
[2018-06-02] MEDS: Insulin Regular 300 UNITS/3 ML VIAL SC PRN ×2 (16:57→20:25)
[2018-06-02] MEDS: CEFAZOLIN 2 GM/50 ML-DEXTROSE 2 GM in Premix Bag 1 BAG IVPB SCH (17:50)
[2018-06-02] MEDS: Ketorolac Tromethamine 30 MG/ML VIAL IVP SCH ×2 (17:51→23:58)
[2018-06-02] MEDS ORDERED: HEXTEND 6% LR 500ML 500 ML IVPB PRN (17:54)
[2018-06-02 19:46] LABS: Hemoglobin 10.5 g/dL (14.0-18.0)
[2018-06-02 19:57] LABS: Potassium 4.5 mmol/L (3.5-5.1)
--- NOTE | 2018-06-02 20:11 | OP ---
DATE OF PROCEDURE: 06/02/2018 PREOPERATIVE DIAGNOSES: Aortic stenosis/hypertension/tobacco abuse. POSTOPERATIVE DIAGNOSES: Aortic stenosis/hypertension/tobacco abuse. PROCEDURE PERFORMED: Aortic valve replacement with #23 Magna bioprosthetic valve. SURGEON: 1. Zeferino Yates MD. 2. Javier Boyce MD. ANESTHESIA: General endotracheal - Dr. Mitchell Zazueta. PUMP TIME: 61 minutes. CROSS-CLAMP TIME: 44 minutes. LOW CORE TEMPERATURE: [address] MONKEY: Sarahy Lopez. DRAINS: 24-Colombian chest tubes x2. DRIPS: None. TRANSFUSIONS: None. DESCRIPTION OF PROCEDURE: After consent was obtained, the patient was brought to the operating room and placed in supine position on the operating room table. Appropriate lines and monitors were placed and general endotracheal anesthesia was induced. Chest and legs were prepped and draped in the usual sterile fashion. Median sternotomy was performed. The patient was systemically heparinized. Thymic fat and pericardium were divided with electrocautery. Pericardial stay sutures were placed. Aortic and atrial cannulation was performed. After adequate heparinization, the patient was placed on cardiopulmonary bypass. Aortic cross-clamp was applied and an antegrade sanguineous cardioplegic arrest was obtained. A 1 L of antegrade cold cardioplegia was given. Topical cold solution was used. A left ventricular sump drain was placed to the right superior pulmonary vein. Carbon dioxide was infiltrated in the pericardium throughout the open part of the procedure. Transverse hockey stick aortotomy was performed. Aortic stay sutures were placed. Valve was inspected. It was a three leaflet valve. The left and right coronary cusps were fused, making it a functional bileaflet valve. Leaflets were heavily calcified throughout including the hinge points. Leaflets were debrided. The annulus was decalcified. The valve was measured as a 23 Magna. This valve was opened and washed. Pledgeted 2-0 Ethibond sutures were placed in the annulus. Sutures were passed through the valve sewing ring and the valve was seated. Valve was secured with core knots. Valve seated nicely without difficulty. The aortotomy was closed with pledgeted 4-0 Prolene in 2 layers. De-airing maneuver was performed. The patient was placed in Trendelenburg position. Aortic cross-clamp was removed. The valve was inspected under TOM guidance. There was good apposition of the valve annulus. There was no perivalvular leak. Valve leaflets were freely mobile. The left ventricular sump drain was removed and its purse-string suture was secured. Aortic root vent was removed and its pursestring suture was secured. The patient was warmed and weaned from cardiopulmonary bypass. After resumption of sinus rhythm, good hemodynamics, and temperature greater than 36.5, bypass was discontinued. Transfusion was given. Protamine was administered. Decannulation was performed. A pursestring suture was secured. 24-Colombian chest tubes were placed in the mediastinum x2. Vancomycin paste was placed on the sternal edges. After adequate hemostasis had been obtained, sternum was closed with #7 wire. Sternum was treated with platelet rich plasma. Wires were twisted and buried. The intercostal spaces were infiltrated with 0.5% Marcaine mixed with 4 mg of Decadron. Wounds were irrigated through platelet poor plasma and closed in multiple layers. Dermabond was applied to the skin incision. The patient tolerated the procedure well, transferred to the intensive care unit in stable and critical condition. Job ID: [id number]
[2018-06-02] MEDS: Famotidine/PF 20 mg/2ml Vial SLOW IVP SCH (21:02)
[2018-06-02] MEDS: Vancomycin HCl 1.5 GM in Sodium Chloride 0.9% 250 ML 300 ML IVPB SCH (21:02)
[2018-06-03] MEDS: HYDROcodone/Acetaminophen 5/325 mg Tablet PO PRN ×3 (00:56→17:50)
[2018-06-03] MEDS: CEFAZOLIN 2 GM/50 ML-DEXTROSE 2 GM in Premix Bag 1 BAG IVPB SCH ×2 (02:10→08:56)
[2018-06-03] MEDS: Insulin Regular 300 UNITS/3 ML VIAL SC PRN ×4 (04:10→21:09)
[2018-06-03 04:41] LABS: #Basophils 0.1 thou/uL (0.0-0.2); #Lymphocytes 0.7 thou/uL (1.20-3.40); #Monocytes 1.1 thou/uL (0.11-0.59); #Neutrophils 10.8 thou/uL (1.40-6.50); %Basophils 0.7 % (0.0-1.0); %Lymphocytes 5.8 % (21.0-51.0); %Monocytes 8.4 % (0.0-10.0); %Neutrophils 85.1 % (42.0-75.0); Mean Corpuscular HGB CONC 33.5 g/dL (32.0-36.0); Mean Corpuscular Hemoglobin 32.4 pg (27.0-31.0); Mean Corpuscular Volume 96.8 fL (78.0-98.0); Mean Platelet Volume 9.7 fL (7.4-10.4); Platelet Count 142 thou/uL (130-400); RBC Distribution Width 11.7 % (11.5-14.5); Red Blood Cell (RBC) Count 2.76 mill/uL (4.70-6.10); White Blood Cell (WBC) Count 12.6 thou/uL (4.8-10.8)
[2018-06-03 05:00] LABS: Anion Gap 13 mmol/L (10-20); BUN (Urea Nitrogen) 15 mg/dL (8.4-25.7); Calc. Creatinine Clearance 69 mL/min (70-130); Calcium 7.9 mg/dL (7.8-10.44); Carbon Dioxide 16 mmol/L (23-31); Chloride 111 mmol/L (98-107); Estimated GFR-MDRD 73; Glucose 184 mg/dL (83-110); Potassium 3.9 mmol/L (3.5-5.1); Sodium 136 mmol/L (136-145)
[2018-06-03] MEDS: Ketorolac Tromethamine 30 MG/ML VIAL IVP SCH ×3 (05:58→17:49)
--- NOTE | 2018-06-03 08:12 | RAD ---
PORTABLE CHEST: Date: 06/03/18 PROVIDED CLINICAL HISTORY: Post open heart. FINDINGS: Comparison with 06/02/18. Interval removal of endotracheal tube. Additional significant interval change with respect to the maria t or examination is not apparent. IMPRESSION: As above. POS: SHEN
[2018-06-03] MEDS: Aspirin 325 MG TAB PO SCH (08:56)
[2018-06-03] MEDS: Famotidine/PF 20 mg/2ml Vial SLOW IVP SCH ×2 (08:56→21:05)
--- NOTE | 2018-06-03 09:58 | PDOC.PN ---
- Subjective Encounter Start Date: 06/03/18 Encounter Start Time: 09:10 -: old records requested/rev Patient seen and examined. No new complaints. No overnight events pt is awake, on NTG drip for high BP - Objective Resuscitation Status - Order Detail: 05/27/18 03:29 Resuscitation Status Routine Resuscitation Status: FULL: Full Resuscitation MAR Reviewed: Yes Vital Signs & Weight: Vital Signs (12 hours) Temp Pulse Resp BP Pulse Ox 06/03/18 08:12 62 20 06/03/18 08:00 97.6 F 96 06/03/18 04:00 97.6 F 06/03/18 02:11 64 164/54 H 06/03/18 00:00 97.5 F L 06/02/18 23:23 61 16 100 Weight Weight 160 lb 7.944 oz Most Recent Monitor Data Heart Rate from ECG 81 NIBP 125/72 NIBP BP-Mean 89 Respiration from ECG 26 SpO2 88 I&O: 06/02/18 06/03/18 06/04/18 06:59 06:59 06:59 Intake Total 120 1884.2 50 Output Total 875 1790 115 Balance -755 94.2 -65 Result Diagrams: 06/03/18 04:00 06/03/18 04:00 Additional Labs: Accuchecks 06/03/18 06/03/18 06/03/18 08:23 04:09 00:00 POC Glucose 162 H 190 H 161 H 06/02/18 06/02/18 06/02/18 20:26 16:42 14:01 POC Glucose 193 H 193 H 160 H 06/02/18 06/02/18 06/02/18 13:23 12:29 11:46 POC Glucose 159 H 172 H 143 H 06/02/18 11:08 POC Glucose 102 Radiology Reviewed by me: Yes (chest xray reviewed) EKG Reviewed by me: Yes (nsr) Phys Exam - Physical Examination Constitutional: NAD HEENT: PERRLA, moist MMs, sclera anicteric Neck: no JVD, supple Respiratory: no wheezing, no rales, no rhonchi chest tube+ Cardiovascular: RRR, no significant murmur, no rub surgical site with dressing central line Gastrointestinal: soft, non-tender, no distention, positive bowel sounds Musculoskeletal: no edema, pulses present Neurological: non-focal, normal sensation, moves all 4 limbs Lymphatic: no nodes Psychiatric: normal affect, A&O x 3 Skin: no rash, normal turgor Dx/Plan (1) Severe aortic stenosis Code(s): I35.0 - NONRHEUMATIC AORTIC (VALVE) STENOSIS Status: Chronic (2) S/P aortic valve replacement with bioprosthetic valve Code(s): Z95.3 - PRESENCE OF XENOGENIC HEART VALVE Status: Acute (3) Moderate mitral regurgitation Code(s): I34.0 - NONRHEUMATIC MITRAL (VALVE) INSUFFICIENCY Status: Chronic (4) Vasculopathy Code(s): I99.9 - UNSPECIFIED DISORDER OF CIRCULATORY SYSTEM Status: Acute (5) Vertebral artery stenosis Code(s): I65.09 - OCCLUSION AND STENOSIS OF UNSPECIFIED VERTEBRAL ARTERY Status: Acute Qualifiers: Laterality: left Qualified Code(s): I65.02 - Occlusion and stenosis of left vertebral artery (6) COPD (chronic obstructive pulmonary disease) Status: Chronic (7) Hypertension Code(s): I10 - ESSENTIAL (PRIMARY) HYPERTENSION Status: Chronic (8) Hypothyroidism Code(s): E03.9 - HYPOTHYROIDISM, UNSPECIFIED Status: Chronic (9) AVM (arteriovenous malformation) brain Code(s): Q28.2 - ARTERIOVENOUS MALFORMATION OF CEREBRAL VESSELS Status: Chronic - Plan cont current plan of care * medication reviewed as below * symptomatic treatment * continue post AVR protocol treatment as per CV surgeon. Review of Systems - Review of Systems ENT: negative: Ear Pain, Ear Discharge, Nose Pain, Nose Discharge, Nose Congestion, Mouth Pain, Mouth Swelling, Throat Pain, Throat Swelling, Other Respiratory: negative: Cough, Dry, Shortness of Breath, Hemoptysis, SOB with Excertion, Pleuritic Pain, Sputum, Wheezing Cardiovascular: negative: chest pain, palpitations, orthopnea, paroxysmal nocturnal dyspnea, edema, light headedness, other Gastrointestinal: negative: Nausea, Vomiting, Abdominal Pain, Diarrhea, Constipation, Melena, Hematochezia, Other Genitourinary: negative: Dysuria, Frequency, Incontinence, Hematuria, Retention , Other Musculoskeletal: negative: Neck Pain, Shoulder Pain, Arm Pain, Back Pain, Hand Pain, Leg Pain, Foot Pain, Other Skin: negative: Rash, Lesions, Claus, Bruising, Other - Medications/Allergies Allergies/Adverse Reactions: Allergies Allergy/AdvReac Type Severity Reaction Status Date / Time No Known Allergies Allergy Verified 05/26/18 23:30 Medications: Current Medications Acetaminophen (Tylenol) 650 mg PO Q6H PRN PRN Reason: Headache/Fever Or Mild Pain Hydrocodone Bitart/Acetaminophen ([place] 5/325) 1 tab PO Q4H PRN PRN Reason: Moderate Pain (4-6) Last Admin: 06/03/18 09:05 Dose: 1 tab Hydrocodone Bitart/Acetaminophen ([place] 5/325) 2 tab PO Q4H PRN PRN Reason: Severe Pain (7-10) Al Hydroxide/Mg Hydroxide (Maalox) 30 ml PO Q4H PRN PRN Reason: Indigestion Albumin Human (Albumin 5%) 12.5 gm IVPB Q6H PRN PRN Reason: To Maintain SBP> 90 mmHG Stop: 06/03/18 13:39 Albumin Human (Albumin 5%) 25 gm IVPB Q6H PRN PRN Reason: To Maintain SBP > 90 mmHG Stop: 06/03/18 13:39 Last Admin: 06/02/18 14:10 Dose: 25 gm Albuterol/Ipratropium (Duoneb) 3 ml NEB [id number] [facility]ALPH Last Admin: 06/03/18 08:12 Dose: 3 ml Albuterol/Ipratropium (Duoneb) 3 ml NEB [id number] PRN PRN Reason: SHORTNESS OF BREATH Aspirin (Aspirin) 325 mg PO DAILY [facility] Last Admin: 06/03/18 08:56 Dose: 325 mg Bisacodyl (Dulcolax) 10 mg PO Q12H PRN PRN Reason: Constipation Bisacodyl (Dulcolax) 10 mg SC Q12H PRN PRN Reason: Constipation Dextrose/Water (Dextrose 50%) 25 gm SLOW IVP PRN PRN PRN Reason: PER HYPOGLYCEMIC PROTOCOL Famotidine (Pepcid) 20 mg SLOW IVP Q12HR [facility] Last Admin: 06/03/18 08:56 Dose: 20 mg Fentanyl (Sublimaze) 25 mcg SLOW IVP Q2H PRN PRN Reason: Moderate Pain (4-6) Stop: 06/04/18 13:10 Fentanyl (Sublimaze) 50 mcg SLOW IVP Q2H PRN PRN Reason: Severe Pain (7-10) Stop: 06/04/18 13:10 Glucagon (Glucagon) 1 mg SC PRN PRN PRN Reason: PER HYPOGLYCEMIC PROTOCOL Guaifenesin/Dextromethorphan (Robitussin Dm) 15 ml PO Q4H PRN PRN Reason: Cough Hydralazine HCl (Apresoline) 10 mg SLOW IVP Q6H PRN PRN Reason: To Maintain SBP< 140mmHG Last Admin: 06/03/18 02:11 Dose: 10 mg Potassium Chloride/Dextrose/Sod Cl (D5 1/2 Ns W/20 Meq Kcl) 1,000 mls @ 40 mls/ hr IV .Q24H [facility]ALPH Last Admin: 06/02/18 14:52 Dose: 1,000 mls Nitroglycerin/Dextrose (Nitroglycerin 50 Mg/250 Ml Bot) 250 mls @ 0 mls/hr IVPB PRN PRN; Protocol PRN Reason: To Maintain SBP< 140mmHG Phenylephrine HCl (Hammad-Synephrine) 250 mls @ 0 mls/hr IVPB PRN PRN; Protocol PRN Reason: To maintain SBP > 90 mmHG Vancomycin HCl 1.5 gm/ Sodium (Chloride) 300 mls @ 200 mls/hr IVPB 1000,2200 RALPH Stop: 06/03/18 11:29 Last Admin: 06/02/18 21:02 Dose: 300 mls Dextrose/Water (D5w) 1,000 mls @ 0 mls/hr IV INF PRN PRN Reason: PRN HYPOGLYCEMIC PROTOCOL Cefazolin Sodium/Dextrose 2 gm (/ Device) 50 mls @ 100 mls/hr IVPB 0200,1000, 1800 RALPH Stop: 06/03/18 10:29 Last Admin: 06/03/18 08:56 Dose: 50 mls Hetastarch/Lactated Electrolytes (Hextend 6%-Lactacted Ringers) 500 mls @ 0 mls /hr IVPB PRN PRN PRN Reason: To Maintain SBP > 90mmHg Stop: 06/03/18 13:30 Last Admin: 06/02/18 18:03 Dose: 500 mls Insulin Human Regular (Humulin R) 0 units SC Q4H PRN; Protocol PRN Reason: POST OP SLIDING SCALE Last Admin: 06/03/18 08:56 Dose: 4 unit Ketorolac Tromethamine (Toradol) 15 mg IVP Q6HR [facility] Stop: 06/05/18 18:01 Last Admin: 06/03/18 05:58 Dose: 15 mg Morphine Sulfate (Morphine) 2 mg SLOW IVP Q15MIN PRN PRN Reason: Severe Pain (7-10) Ondansetron HCl (Zofran) 4 mg IVP Q6H PRN PRN Reason: Nausea/Vomiting Potassium Chloride (Kcl) 20 meq IVPB PRN PRN PRN Reason: K level </= 4.0 Last Admin: 06/03/18 05:58 Dose: 20 meq Promethazine HCl (Phenergan) 6.25 mg IM Q4H PRN PRN Reason: Nausea/Vomiting Sodium Chloride (Flush - Normal Saline) 10 ml IVF PRN PRN PRN Reason: Saline Flush
[2018-06-03] MEDS: Vancomycin HCl 1.5 GM in Sodium Chloride 0.9% 250 ML 300 ML IVPB SCH (11:11)
[2018-06-03] MEDS ORDERED: Metoprolol Tartrate 25 MG TAB PO SCH ×2 (11:15→21:00)
[2018-06-03] MEDS ORDERED: Losartan 25 MG TAB PO SCH (11:15)
--- NOTE | 2018-06-03 13:04 | EKG ---
Test Reason : EMERGENCY EXAM Blood Pressure : / mmHG Vent. Rate : 060 BPM Atrial Rate : 060 BPM P-R Int : 188 ms QRS Dur : 114 ms QT Int : 464 ms P-R-T Axes : 031 -38 078 degrees QTc Int : 464 ms Normal sinus rhythm Left axis deviation Incomplete right bundle branch block Left ventricular hypertrophy with repolarization abnormality Cannot rule out Septal infarct , age undetermined Abnormal ECG Confirmed by ANRA COURTNEY ([id number]), brands editor DANNY FRANK ([id number]) on 06/03/2018 1:04:01 PM Referred By: ROZ Confirmed By:NARA COURTNEY
[2018-06-04] MEDS: Ketorolac Tromethamine 30 MG/ML VIAL IVP SCH (00:23)
[2018-06-04] MEDS: Insulin Regular 300 UNITS/3 ML VIAL SC PRN (00:30)
--- NOTE | 2018-06-04 01:00 | CON ---
DATE OF CONSULTATION: 06/03/2018 HISTORY OF PRESENT ILLNESS: He was extubated per protocol overnight. He is doing well this morning, although he is a little encephalopathic and has to constantly be monitored for climbing out of bed. OBJECTIVE: GENERAL: He was extubated per protocol overnight. VITAL SIGNS: Vital signs were stable. He is in sinus rhythm. Heart rate in the 70s, respiratory rate is 20, oximetry is 94% on room air. Blood pressure has been stable, this evening is 148/55. His intake and output, positive 94 mL. HEENT: pupils react. NECK: Supple LUNGS: Clear. HEART: Regular rhythm. S1, S2 are normal. ABDOMEN: Soft, nontender. EXTREMITIES: Without clubbing, cyanosis, or edema. LABORATORY DATA: White count 12.6, hemoglobin 9.0, and platelets 142,000. Sodium 136, potassium 3.9, chloride 111, bicarb 16, BUN 15, and creatinine 1.01. Blood gas 7.33, pCO2 of 36, PO2 of 78 yesterday prior to extubation. Chest radiograph is unremarkable. PAST MEDICAL HISTORY: Only remarkable for hypertension, on losartan and spironolactone prior to admission. SOCIAL HISTORY: Pack-a-day smoker. Nondrinker. ALLERGIES: REPORTED NO DRUG ALLERGIES. FAMILY HISTORY: Negative for lung disease in early age. REVIEW OF SYSTEMS: 10 point review of systems completed, otherwise unremarkable. He had severe aortic stenosis on echo and underwent aortic valve replacement with a #23 Magna bioprosthetic valve yesterday. He is clinically stable postoperatively other than having a mild encephalopathy. This is manageable with just reassurance by the nurses at this time. This is a 50-minute consult, with greater than 50% of the time spent on the unit coordinating care. Job ID: [id number] [facility]
[2018-06-04 04:36] LABS: #Basophils 0.1 thou/uL (0.0-0.2); #Lymphocytes 1.6 thou/uL (1.20-3.40); #Monocytes 1.4 thou/uL (0.11-0.59); #Neutrophils 9.3 thou/uL (1.40-6.50); %Eosinophils 0.1 % (0.0-10.0); %Lymphocytes 12.9 % (21.0-51.0); %Monocytes 11.2 % (0.0-10.0); %Neutrophils 74.8 % (42.0-75.0); Hemoglobin 8.4 g/dL (14.0-18.0); Mean Corpuscular HGB CONC 30.9 g/dL (32.0-36.0); Mean Corpuscular Hemoglobin 29.9 pg (27.0-31.0); Mean Corpuscular Volume 96.6 fL (78.0-98.0); Mean Platelet Volume 9.7 fL (7.4-10.4); Platelet Count 154 thou/uL (130-400); Red Blood Cell (RBC) Count 2.82 mill/uL (4.70-6.10); White Blood Cell (WBC) Count 12.5 thou/uL (4.8-10.8)
[2018-06-04 04:52] LABS: Anion Gap 11 mmol/L (10-20); BUN (Urea Nitrogen) 22 mg/dL (8.4-25.7); Calc. Creatinine Clearance 52 mL/min (70-130); Calcium 8.5 mg/dL (7.8-10.44); Carbon Dioxide 19 mmol/L (23-31); Chloride 110 mmol/L (98-107); Estimated GFR-MDRD 53; Glucose 106 mg/dL (83-110); Potassium 4.3 mmol/L (3.5-5.1); Sodium 136 mmol/L (136-145)
[2018-06-04] MEDS: HYDROcodone/Acetaminophen 5/325 mg Tablet PO PRN ×2 (05:31→17:09)
[2018-06-04] MEDS ORDERED: Furosemide 20 MG/2 ML VIAL SLOW IVP SCH (09:00)
[2018-06-04] MEDS: Metoprolol Tartrate 25 MG TAB PO SCH ×2 (09:01→20:01)
[2018-06-04] MEDS: Losartan 25 MG TAB PO SCH (09:02)
[2018-06-04] MEDS: Aspirin 325 MG TAB PO SCH (09:02)
[2018-06-04] MEDS: Famotidine 20 MG TAB PO SCH ×2 (09:02→20:01)
--- NOTE | 2018-06-04 09:35 | RAD ---
PORTABLE CHEST: Date: 06/04/18 PROVIDED CLINICAL HISTORY: Post open heart. FINDINGS: Comparison made with the study dated 06/03/18. Patchy bibasilar parenchymal opacities are noted, which may reflect subsegmental atelectasis or devel oping infiltrate. There is no evidence for pneumothorax. Heart size appears enlarged. Right subclavia n central line is again seen in similar position. Mediastinal drains are again noted. IMPRESSION: Patchy bibasilar opacities may reflect subsegmental atelectasis or developing infiltrate. Follow-up r ecommended. POS: [facility]
--- NOTE | 2018-06-04 09:58 | PDOC.PN ---
- Subjective Encounter Start Date: 06/04/18 Encounter Start Time: 07:10 Patient seen and examined. No new complaints. No overnight events he has mild surgical related pain, no cough, no fever, family bedside - Objective Resuscitation Status - Order Detail: 05/27/18 03:29 Resuscitation Status Routine Resuscitation Status: FULL: Full Resuscitation MAR Reviewed: Yes Vital Signs & Weight: Vital Signs (12 hours) Temp Pulse Resp Pulse Ox 06/04/18 08:30 75 28 H 06/04/18 08:00 97.7 F 95 06/04/18 04:00 98.1 F 06/04/18 00:00 98 F 06/03/18 23:38 68 20 95 Weight Weight 164 lb 7.437 oz Most Recent Monitor Data Heart Rate from ECG 75 NIBP 150/60 NIBP BP-Mean 90 Respiration from ECG 34 SpO2 95 I&O: 06/03/18 06/04/18 06/05/18 06:59 06:59 06:59 Intake Total 1884.2 2040.2 400 Output Total 1790 847 95 Balance 94.2 1193.2 305 Result Diagrams: 06/04/18 03:55 06/04/18 03:55 Additional Labs: Accuchecks 06/04/18 06/03/18 06/03/18 00:30 21:04 16:45 POC Glucose 124 H 134 H 131 H 06/03/18 11:06 POC Glucose 169 H Radiology Reviewed by me: Yes (chest xray basal atelectesis) EKG Reviewed by me: Yes (nsr) Phys Exam - Physical Examination Constitutional: NAD HEENT: PERRLA, moist MMs, sclera anicteric Neck: no JVD, supple Respiratory: no wheezing, no rales, no rhonchi air entry less at base surgical site with dressing, chest tube in place Cardiovascular: RRR, no rub Gastrointestinal: soft, non-tender, no distention, positive bowel sounds Musculoskeletal: no edema, pulses present Neurological: non-focal, normal sensation, moves all 4 limbs Lymphatic: no nodes Psychiatric: normal affect, A&O x 3 Skin: no rash, normal turgor Dx/Plan (1) Severe aortic stenosis Code(s): I35.0 - NONRHEUMATIC AORTIC (VALVE) STENOSIS Status: Chronic (2) S/P aortic valve replacement with bioprosthetic valve Code(s): Z95.3 - PRESENCE OF XENOGENIC HEART VALVE Status: Acute (3) Moderate mitral regurgitation Code(s): I34.0 - NONRHEUMATIC MITRAL (VALVE) INSUFFICIENCY Status: Chronic (4) Vasculopathy Code(s): I99.9 - UNSPECIFIED DISORDER OF CIRCULATORY SYSTEM Status: Acute (5) Vertebral artery stenosis Code(s): I65.09 - OCCLUSION AND STENOSIS OF UNSPECIFIED VERTEBRAL ARTERY Status: Acute Qualifiers: Laterality: left Qualified Code(s): I65.02 - Occlusion and stenosis of left vertebral artery (6) COPD (chronic obstructive pulmonary disease) Status: Chronic (7) Hypertension Code(s): I10 - ESSENTIAL (PRIMARY) HYPERTENSION Status: Chronic (8) Hypothyroidism Code(s): E03.9 - HYPOTHYROIDISM, UNSPECIFIED Status: Chronic (9) AVM (arteriovenous malformation) brain Code(s): Q28.2 - ARTERIOVENOUS MALFORMATION OF CEREBRAL VESSELS Status: Chronic - Plan cont current plan of care, plan discussed w/ family * continue post op care as per CV surgery * medication reviewed as below * symptomatic treatment * updated test result to family * cardiac rehab * transfer to tele will defer to CV surgery. Review of Systems - Review of Systems ENT: negative: Ear Pain, Ear Discharge, Nose Pain, Nose Discharge, Nose Congestion, Mouth Pain, Mouth Swelling, Throat Pain, Throat Swelling, Other Respiratory: negative: Cough, Dry, Shortness of Breath, Hemoptysis, SOB with Excertion, Pleuritic Pain, Sputum, Wheezing Cardiovascular: negative: chest pain, palpitations, orthopnea, paroxysmal nocturnal dyspnea, edema, light headedness, other Gastrointestinal: negative: Nausea, Vomiting, Abdominal Pain, Diarrhea, Constipation, Melena, Hematochezia, Other Genitourinary: negative: Dysuria, Frequency, Incontinence, Hematuria, Retention , Other Musculoskeletal: negative: Neck Pain, Shoulder Pain, Arm Pain, Back Pain, Hand Pain, Leg Pain, Foot Pain, Other Skin: negative: Rash, Lesions, Claus, Bruising, Other - Medications/Allergies Allergies/Adverse Reactions: Allergies Allergy/AdvReac Type Severity Reaction Status Date / Time No Known Allergies Allergy Verified 05/26/18 23:30 Medications: Current Medications Acetaminophen (Tylenol) 650 mg PO Q6H PRN PRN Reason: Headache/Fever Or Mild Pain Hydrocodone Bitart/Acetaminophen ([place] 5/325) 1 tab PO Q4H PRN PRN Reason: Moderate Pain (4-6) Last Admin: 06/04/18 05:31 Dose: 1 tab Hydrocodone Bitart/Acetaminophen ([place] 5/325) 2 tab PO Q4H PRN PRN Reason: Severe Pain (7-10) Last Admin: 06/04/18 09:04 Dose: 2 tab Al Hydroxide/Mg Hydroxide (Maalox) 30 ml PO Q4H PRN PRN Reason: Indigestion Albuterol/Ipratropium (Duoneb) 3 ml NEB [id number] [facility] Last Admin: 06/04/18 08:30 Dose: 3 ml Albuterol/Ipratropium (Duoneb) 3 ml NEB [id number] PRN PRN Reason: SHORTNESS OF BREATH Aspirin (Aspirin) 325 mg PO DAILY [facility] Last Admin: 06/04/18 09:02 Dose: 325 mg Bisacodyl (Dulcolax) 10 mg PO Q12H PRN PRN Reason: Constipation Bisacodyl (Dulcolax) 10 mg IN Q12H PRN PRN Reason: Constipation Famotidine (Pepcid) 20 mg PO BID [facility] Last Admin: 06/04/18 09:02 Dose: 20 mg Fentanyl (Sublimaze) 25 mcg SLOW IVP Q2H PRN PRN Reason: Moderate Pain (4-6) Stop: 06/04/18 13:10 Fentanyl (Sublimaze) 50 mcg SLOW IVP Q2H PRN PRN Reason: Severe Pain (7-10) Stop: 06/04/18 13:10 Furosemide (Lasix) 40 mg SLOW IVP DAILY [facility] Last Admin: 06/04/18 09:03 Dose: 40 mg Guaifenesin/Dextromethorphan (Robitussin Dm) 15 ml PO Q4H PRN PRN Reason: Cough Hydralazine HCl (Apresoline) 10 mg SLOW IVP Q6H PRN PRN Reason: To Maintain SBP< 140mmHG Last Admin: 06/03/18 02:11 Dose: 10 mg Losartan Potassium (Cozaar) 50 mg PO DAILY [facility] Last Admin: 06/04/18 09:02 Dose: 50 mg Metoprolol Tartrate (Lopressor) 25 mg PO BID [facility] Last Admin: 06/04/18 09:01 Dose: 25 mg Morphine Sulfate (Morphine) 2 mg SLOW IVP Q15MIN PRN PRN Reason: Severe Pain (7-10) Ondansetron HCl (Zofran) 4 mg IVP Q6H PRN PRN Reason: Nausea/Vomiting Potassium Chloride (Kcl) 20 meq IVPB PRN PRN PRN Reason: K level </= 4.0 Last Admin: 06/03/18 05:58 Dose: 20 meq Promethazine HCl (Phenergan) 6.25 mg IM Q4H PRN PRN Reason: Nausea/Vomiting Sodium Chloride (Flush - Normal Saline) 10 ml IVF PRN PRN PRN Reason: Saline Flush
--- NOTE | 2018-06-04 11:54 | PRG ---
DATE OF SERVICE: 06/04/2018 SUBJECTIVE: Mr. Yoshi Lara developed atrial fibrillation. His rate is controlled with beta xiomara on board. OBJECTIVE: VITAL SIGNS: His heart rate is in the 90s, blood pressure is 118/58, and respiratory rate is 20. LUNGS: Clear. HEART: Irregular rhythm. ABDOMEN: Soft and nontender. EXTREMITIES: Without asymmetry. CHEST: He still has chest tube. LABORATORY DATA: White count 12.5, hemoglobin 8.4, platelets 154. Sodium 136, potassium 4.3, chloride 110, bicarb 19, BUN 22, and creatinine 1.32. IMPRESSION: Status post aortic valve replacement. Chest radiograph reviewed suggestive of bibasilar atelectasis versus small effusions, not a clinical issue at this point. He will remain in the critical care unit. He seems to be more cooperative today than he was yesterday. Job ID: [id number]
[2018-06-04] MEDS: Diltiazem HCl 125 MG, Admixture Fee 1 EACH in Sodium Chloride 0.9% 100 ML IVPB SCH (12:14)
[2018-06-05] MEDS: HYDROcodone/Acetaminophen 5/325 mg Tablet PO PRN ×2 (00:42→04:18)
[2018-06-05] MEDS: Diltiazem HCl 125 MG, Admixture Fee 1 EACH in Sodium Chloride 0.9% 100 ML IVPB SCH (04:59)
[2018-06-05 05:07] LABS: #Basophils 0.2 thou/uL (0.0-0.2); #Eosinphils 0.1 thou/uL (0.0-0.7); #Lymphocytes 1.7 thou/uL (1.20-3.40); #Monocytes 1.7 thou/uL (0.11-0.59); #Neutrophils 9.7 thou/uL (1.40-6.50); %Basophils 1.2 % (0.0-1.0); %Eosinophils 0.4 % (0.0-10.0); %Lymphocytes 12.9 % (21.0-51.0); %Monocytes 12.9 % (0.0-10.0); %Neutrophils 72.6 % (42.0-75.0); Hemoglobin 8.6 g/dL (14.0-18.0); Mean Corpuscular HGB CONC 33.1 g/dL (32.0-36.0); Mean Corpuscular Volume 96.7 fL (78.0-98.0); Mean Platelet Volume 9.5 fL (7.4-10.4); Platelet Count 184 thou/uL (130-400); Red Blood Cell (RBC) Count 2.69 mill/uL (4.70-6.10); White Blood Cell (WBC) Count 13.4 thou/uL (4.8-10.8)
[2018-06-05 05:26] LABS: Anion Gap 14 mmol/L (10-20); BUN (Urea Nitrogen) 37 mg/dL (8.4-25.7); Calc. Creatinine Clearance 43 mL/min (70-130); Calcium 8.6 mg/dL (7.8-10.44); Carbon Dioxide 19 mmol/L (23-31); Chloride 108 mmol/L (98-107); Estimated GFR-MDRD 41; Glucose 113 mg/dL (83-110); Potassium 4.4 mmol/L (3.5-5.1); Sodium 137 mmol/L (136-145)
[2018-06-05] MEDS ORDERED: Bisacodyl 5 MG TAB PO PRN (07:40)
[2018-06-05] MEDS ORDERED: diphenhydrAMINE 25 MG CAP PO PRN (07:40)
[2018-06-05] MEDS ORDERED: Mineral Oil ENEMA PR PRN (07:40)
[2018-06-05] MEDS ORDERED: Bisacodyl 10 MG SUPP PR PRN (07:40)
[2018-06-05] MEDS ORDERED: Guaifenesin DM 100-10/5 ML UDCUP PO PRN (07:40)
[2018-06-05] MEDS ORDERED: Mag-Al 1200 mg/1200 mg/30 ML UDCUP PO PRN (07:40)
[2018-06-05] MEDS ORDERED: Nitroglycerin 0.4 MG TAB (25 Tab Bottle) SL PRN (07:40)
[2018-06-05] MEDS ORDERED: Artificial Tears 18 DROP/0.9 ML EA EYE PRN (07:40)
[2018-06-05] MEDS ORDERED: Diltiazem HCl 125 MG, Admixture Fee 1 EACH in Sodium Chloride 0.9% 100 ML IVPB SCH (07:46)
[2018-06-05] MEDS: Metoprolol Tartrate 25 MG TAB PO SCH ×2 (09:11→20:38)
[2018-06-05] MEDS: Aspirin 325 mg Enteric Coated Tablet PO SCH (09:11)
[2018-06-05] MEDS: Amiodarone 200 MG TAB PO SCH ×2 (09:11→20:38)
[2018-06-05] MEDS: Famotidine 20 MG TAB PO SCH (09:11)
[2018-06-05] MEDS: Losartan 25 MG TAB PO SCH (09:11)
--- NOTE | 2018-06-05 09:24 | RAD ---
AP VIEW CHEST: Date: 06/05/18 HISTORY: Postoperative chest radiograph. FINDINGS: Comparison made to previous exam from 06/04/18. AP view of chest demonstrates sternotomy wires seen. Cardiomegaly is seen. Pulmonary vascular congest ion is seen. EKG leads seen over the chest. There is a right subclavian central line, distal tip overlying the right atrium. Small bilateral pleural effusions seen. Air space opacity seen in both lung bases and perihilar areas. IMPRESSION: Cardiomegaly and pulmonary vascular congestion. No significant interval change is noted since the pre vious exam. POS: [facility]
--- NOTE | 2018-06-05 10:31 | PDOC.PN ---
- Subjective Encounter Start Date: 06/05/18 Encounter Start Time: 07:40 pt developed afib yesterday and cardizem drip required, this morning he has elevated creatinine and his rate controlled, he is planned for transfer to [facility] Patient seen and examined. No new complaints. - Objective Resuscitation Status - Order Detail: 05/27/18 03:29 Resuscitation Status Routine Resuscitation Status: FULL: Full Resuscitation MAR Reviewed: Yes Vital Signs & Weight: Vital Signs (12 hours) Temp Pulse Resp BP Pulse Ox 06/05/18 09:00 91 L 06/05/18 08:47 98.5 F 81 18 140/62 91 L 06/05/18 07:47 92 L 06/05/18 07:00 98.8 F 06/05/18 04:00 98.7 F 06/05/18 00:00 98.5 F Weight Weight 166 lb 14.239 oz Most Recent Monitor Data Heart Rate from ECG 75 NIBP 129/45 NIBP BP-Mean 73 Respiration from ECG 28 SpO2 91 I&O: 06/04/18 06/05/18 06/06/18 06:59 06:59 06:59 Intake Total 2040.2 1377 100 Output Total 847 1325 60 Balance 1193.2 52 40 Result Diagrams: 06/05/18 03:50 06/05/18 03:50 Radiology Reviewed by me: Yes (chest xray reviewed ) EKG Reviewed by me: Yes (afib) Phys Exam - Physical Examination Constitutional: NAD HEENT: PERRLA, moist MMs, sclera anicteric Neck: no JVD, supple Respiratory: no wheezing, no rales, no rhonchi coarse breath sound surgical site clean Cardiovascular: irregular bioprosthetic click Gastrointestinal: soft, non-tender, no distention, positive bowel sounds Musculoskeletal: no edema, pulses present Neurological: non-focal, normal sensation, moves all 4 limbs Lymphatic: no nodes Psychiatric: normal affect, A&O x 3 Skin: no rash, normal turgor Dx/Plan (1) Atrial fibrillation Code(s): I48.91 - UNSPECIFIED ATRIAL FIBRILLATION Status: Acute (2) Acute kidney failure Status: Acute (3) Severe aortic stenosis Code(s): I35.0 - NONRHEUMATIC AORTIC (VALVE) STENOSIS Status: Chronic (4) S/P aortic valve replacement with bioprosthetic valve Code(s): Z95.3 - PRESENCE OF XENOGENIC HEART VALVE Status: Acute (5) Moderate mitral regurgitation Code(s): I34.0 - NONRHEUMATIC MITRAL (VALVE) INSUFFICIENCY Status: Chronic (6) Vasculopathy Code(s): I99.9 - UNSPECIFIED DISORDER OF CIRCULATORY SYSTEM Status: Acute (7) Vertebral artery stenosis Code(s): I65.09 - OCCLUSION AND STENOSIS OF UNSPECIFIED VERTEBRAL ARTERY Status: Acute Qualifiers: Laterality: left Qualified Code(s): I65.02 - Occlusion and stenosis of left vertebral artery (8) COPD (chronic obstructive pulmonary disease) Status: Chronic (9) Hypertension Code(s): I10 - ESSENTIAL (PRIMARY) HYPERTENSION Status: Chronic (10) Hypothyroidism Code(s): E03.9 - HYPOTHYROIDISM, UNSPECIFIED Status: Chronic (11) AVM (arteriovenous malformation) brain Code(s): Q28.2 - ARTERIOVENOUS MALFORMATION OF CEREBRAL VESSELS Status: Chronic - Plan cont current plan of care * currently on cardizem drip for afib, cardiology following, will wean off drip as tolerated * lasix for congestion will defer to CV surgery, will monitor renal function * medication reviewed as below * symptomatic treatment * transfer to tele * continue cardiac rehab * repeat labs tomorrow. Review of Systems - Review of Systems ENT: negative: Ear Pain, Ear Discharge, Nose Pain, Nose Discharge, Nose Congestion, Mouth Pain, Mouth Swelling, Throat Pain, Throat Swelling, Other Respiratory: negative: Cough, Dry, Shortness of Breath, Hemoptysis, SOB with Excertion, Pleuritic Pain, Sputum, Wheezing Cardiovascular: negative: chest pain, palpitations, orthopnea, paroxysmal nocturnal dyspnea, edema, light headedness, other Gastrointestinal: negative: Nausea, Vomiting, Abdominal Pain, Diarrhea, Constipation, Melena, Hematochezia, Other Genitourinary: negative: Dysuria, Frequency, Incontinence, Hematuria, Retention , Other Musculoskeletal: negative: Neck Pain, Shoulder Pain, Arm Pain, Back Pain, Hand Pain, Leg Pain, Foot Pain, Other - Medications/Allergies Allergies/Adverse Reactions: Allergies Allergy/AdvReac Type Severity Reaction Status Date / Time No Known Allergies Allergy Verified 05/26/18 23:30 Medications: Current Medications Acetaminophen (Tylenol) 650 mg PO Q6H PRN PRN Reason: Headache/Fever Or Mild Pain Hydrocodone Bitart/Acetaminophen ([place] 5/325) 1 tab PO Q4H PRN PRN Reason: Moderate Pain (4-6) Last Admin: 06/05/18 04:18 Dose: 1 tab Hydrocodone Bitart/Acetaminophen ([place] 5/325) 2 tab PO Q4H PRN PRN Reason: Severe Pain (7-10) Last Admin: 06/04/18 09:04 Dose: 2 tab Al Hydroxide/Mg Hydroxide (Maalox) 30 ml PO Q4H PRN PRN Reason: Indigestion Albuterol/Ipratropium (Duoneb) 3 ml NEB Q6H PRN PRN Reason: SOB Amiodarone HCl (Cordarone) 400 mg PO BID [facility] Last Admin: 06/05/18 09:11 Dose: 400 mg Artificial Tears (Tears Naturale) 0 drop EA EYE PRN PRN PRN Reason: Dry Eyes Aspirin (Ecotrin) 325 mg PO DAILY [facility] Last Admin: 06/05/18 09:11 Dose: 325 mg Bisacodyl (Dulcolax) 10 mg PO Q12H PRN PRN Reason: Constipation Bisacodyl (Dulcolax) 10 mg OR Q12H PRN PRN Reason: Constipation Diphenhydramine HCl (Benadryl) 25 mg PO Q6H PRN PRN Reason: Itching & Insomnia or Alexander Axel Famotidine (Pepcid) 20 mg PO 0900 [facility] Last Admin: 06/05/18 09:11 Dose: 20 mg Guaifenesin/Dextromethorphan (Robitussin Dm) 15 ml PO Q4H PRN PRN Reason: Cough Hydralazine HCl (Apresoline) 10 mg SLOW IVP Q6H PRN PRN Reason: To Maintain SBP< 140mmHG Last Admin: 06/03/18 02:11 Dose: 10 mg Diltiazem HCl 125 mg/Miscellaneous Medication 1 each/ Sodium Chloride 125 mls @ 0 mls/hr IVPB INF [facility]; Protocol Stop: 06/05/18 16:00 Losartan Potassium (Cozaar) 50 mg PO DAILY [facility] Last Admin: 06/05/18 09:11 Dose: 50 mg Metoprolol Tartrate (Lopressor) 25 mg PO BID [facility] Last Admin: 06/05/18 09:11 Dose: 25 mg Mineral Oil (Fleet Mineral Oil) 133 ml OR DAILYPRN PRN PRN Reason: Constipation Morphine Sulfate (Morphine) 2 mg SLOW IVP Q15MIN PRN PRN Reason: Severe Pain (7-10) Nitroglycerin (Nitrostat) 0.4 mg SL Q5MIN PRN PRN Reason: Chest Pain Ondansetron HCl (Zofran) 4 mg IVP Q6H PRN PRN Reason: Nausea/Vomiting Sodium Chloride (Flush - Normal Saline) 10 ml IVF PRN PRN PRN Reason: Saline Flush
--- NOTE | 2018-06-05 13:50 | PRG ---
DATE OF SERVICE: 06/05/2018 SUBJECTIVE: Yoshi Lara has no complaints. He says he feels great. He says every day he feels better. OBJECTIVE: VITAL SIGNS: He is afebrile. Heart rate 70, respiratory rate 16, oximetry is 95%, blood pressure 129/62. LUNGS: Clear. HEART: Regular rhythm. ABDOMEN: Soft, nontender. EXTREMITIES: Warm. LABORATORY DATA: White count 13.4, hemoglobin 8.6, platelets 184. Sodium 137, potassium 4.4, chloride 108, bicarb 19, BUN 37, creatinine 1.65. IMPRESSION: 1. Status post aortic valve replacement, clinically doing well. 2. Bibasilar atelectasis. 3. Acute on chronic kidney disease. His bump in creatinine is likely secondary to the recent operative procedure. His intake and output coming in today was positive 52. His Lasix has been discontinued today with his bump in creatinine. I would agree with this. We will continue to follow. Job ID: [id number]
[2018-06-06 06:25] LABS: #Basophils 0.2 thou/uL (0.0-0.2); #Eosinphils 0.4 thou/uL (0.0-0.7); #Lymphocytes 1.2 thou/uL (1.20-3.40); #Monocytes 1.4 thou/uL (0.11-0.59); #Neutrophils 8.2 thou/uL (1.40-6.50); %Basophils 1.6 % (0.0-1.0); %Eosinophils 3.3 % (0.0-10.0); %Lymphocytes 10.6 % (21.0-51.0); %Monocytes 12.6 % (0.0-10.0); %Neutrophils 71.9 % (42.0-75.0); Mean Corpuscular HGB CONC 32.8 g/dL (32.0-36.0); Mean Corpuscular Hemoglobin 31.6 pg (27.0-31.0); Mean Corpuscular Volume 96.2 fL (78.0-98.0); Mean Platelet Volume 8.3 fL (7.4-10.4); Platelet Count 235 thou/uL (130-400); RBC Distribution Width 11.8 % (11.5-14.5); Red Blood Cell (RBC) Count 2.85 mill/uL (4.70-6.10); White Blood Cell (WBC) Count 11.5 thou/uL (4.8-10.8)
[2018-06-06 06:58] LABS: Anion Gap 13 mmol/L (10-20); BUN (Urea Nitrogen) 32 mg/dL (8.4-25.7); Calc. Creatinine Clearance 66 mL/min (70-130); Calcium 8.8 mg/dL (7.8-10.44); Carbon Dioxide 18 mmol/L (23-31); Chloride 108 mmol/L (98-107); Estimated GFR-MDRD 67; Glucose 94 mg/dL (83-110); Sodium 135 mmol/L (136-145)
[2018-06-06] MEDS: Losartan 25 MG TAB PO SCH (10:34)
[2018-06-06] MEDS: Amiodarone 200 MG TAB PO SCH ×2 (10:35→20:53)
[2018-06-06] MEDS: Famotidine 20 MG TAB PO SCH (10:35)
[2018-06-06] MEDS: Metoprolol Tartrate 25 MG TAB PO SCH ×2 (10:35→20:53)
[2018-06-06] MEDS: Aspirin 325 mg Enteric Coated Tablet PO SCH (10:35)
--- NOTE | 2018-06-06 10:36 | PDOC.PN ---
- Subjective Encounter Start Date: 06/06/18 Encounter Start Time: 07:50 he has cough with sputum, no fever, now he is in NSR - Objective Resuscitation Status - Order Detail: 05/27/18 03:29 Resuscitation Status Routine Resuscitation Status: FULL: Full Resuscitation MAR Reviewed: Yes Vital Signs & Weight: Vital Signs (12 hours) Temp Pulse Resp BP Pulse Ox 06/06/18 07:58 97.9 F 70 18 139/64 98 06/06/18 03:07 97.8 F 79 20 155/64 H 96 Weight Weight 166 lb 14.239 oz Most Recent Monitor Data Heart Rate from ECG 75 NIBP 129/45 NIBP BP-Mean 73 Respiration from ECG 28 SpO2 91 I&O: 06/05/18 06/06/18 06/07/18 06:59 06:59 06:59 Intake Total 1377 820 Output Total 1325 635 Balance 52 185 Result Diagrams: 06/06/18 06:06 06/06/18 06:06 EKG Reviewed by me: Yes (nsr) Phys Exam - Physical Examination Constitutional: NAD HEENT: PERRLA, moist MMs, sclera anicteric Neck: no JVD, supple Respiratory: no wheezing, no rhonchi few basal rales Cardiovascular: RRR, no significant murmur, no rub prosthetic click, surgical site clean Gastrointestinal: soft, non-tender, no distention, positive bowel sounds Musculoskeletal: no edema, pulses present Neurological: non-focal, normal sensation, moves all 4 limbs Lymphatic: no nodes Psychiatric: normal affect, A&O x 3 Skin: no rash, normal turgor Dx/Plan (1) Atrial fibrillation Code(s): I48.91 - UNSPECIFIED ATRIAL FIBRILLATION Status: Resolved (2) Acute kidney failure Status: Resolved (3) Severe aortic stenosis Code(s): I35.0 - NONRHEUMATIC AORTIC (VALVE) STENOSIS Status: Chronic (4) S/P aortic valve replacement with bioprosthetic valve Code(s): Z95.3 - PRESENCE OF XENOGENIC HEART VALVE Status: Acute (5) Moderate mitral regurgitation Code(s): I34.0 - NONRHEUMATIC MITRAL (VALVE) INSUFFICIENCY Status: Chronic (6) Vasculopathy Code(s): I99.9 - UNSPECIFIED DISORDER OF CIRCULATORY SYSTEM Status: Acute (7) Vertebral artery stenosis Code(s): I65.09 - OCCLUSION AND STENOSIS OF UNSPECIFIED VERTEBRAL ARTERY Status: Acute Qualifiers: Laterality: left Qualified Code(s): I65.02 - Occlusion and stenosis of left vertebral artery (8) COPD (chronic obstructive pulmonary disease) Status: Chronic (9) Hypertension Code(s): I10 - ESSENTIAL (PRIMARY) HYPERTENSION Status: Chronic (10) Hypothyroidism Code(s): E03.9 - HYPOTHYROIDISM, UNSPECIFIED Status: Chronic (11) AVM (arteriovenous malformation) brain Code(s): Q28.2 - ARTERIOVENOUS MALFORMATION OF CEREBRAL VESSELS Status: Chronic - Plan cont current plan of care, plan discussed w/ family * continue cardiac rehab * medication reviewed as below * symptomatic treatment * overall stable and improving * his cough is concerning ? developing pneumonia vs congestion. * amiodaron for 1 month as per cardiology * discharge per CV surgery Review of Systems - Review of Systems Eyes: negative: Pain, Vision Change, Conjunctivae Inflammation, Eyelid Inflammation, Redness, Other ENT: negative: Ear Pain, Ear Discharge, Nose Pain, Nose Discharge, Nose Congestion, Mouth Pain, Mouth Swelling, Throat Pain, Throat Swelling, Other Respiratory: Cough, Sputum. negative: Dry, Shortness of Breath, Hemoptysis, SOB with Excertion, Pleuritic Pain, Wheezing Cardiovascular: negative: chest pain, palpitations, orthopnea, paroxysmal nocturnal dyspnea, edema, light headedness, other Gastrointestinal: negative: Nausea, Vomiting, Abdominal Pain, Diarrhea, Constipation, Melena, Hematochezia, Other Genitourinary: negative: Dysuria, Frequency, Incontinence, Hematuria, Retention , Other Musculoskeletal: negative: Neck Pain, Shoulder Pain, Arm Pain, Back Pain, Hand Pain, Leg Pain, Foot Pain, Other Skin: negative: Rash, Lesions, Claus, Bruising, Other - Medications/Allergies Allergies/Adverse Reactions: Allergies Allergy/AdvReac Type Severity Reaction Status Date / Time No Known Allergies Allergy Verified 05/26/18 23:30 Medications: Current Medications Acetaminophen (Tylenol) 650 mg PO Q6H PRN PRN Reason: Headache/Fever Or Mild Pain Hydrocodone Bitart/Acetaminophen (Chavies 5/325) 1 tab PO Q4H PRN PRN Reason: Moderate Pain (4-6) Last Admin: 06/05/18 04:18 Dose: 1 tab Hydrocodone Bitart/Acetaminophen (Chavies 5/325) 2 tab PO Q4H PRN PRN Reason: Severe Pain (7-10) Last Admin: 06/04/18 09:04 Dose: 2 tab Al Hydroxide/Mg Hydroxide (Maalox) 30 ml PO Q4H PRN PRN Reason: Indigestion Albuterol/Ipratropium (Duoneb) 3 ml NEB Q6H PRN PRN Reason: SOB Amiodarone HCl (Cordarone) 400 mg PO BID [facility] Last Admin: 06/06/18 10:35 Dose: 400 mg Artificial Tears (Tears Naturale) 0 drop EA EYE PRN PRN PRN Reason: Dry Eyes Aspirin (Ecotrin) 325 mg PO DAILY [facility] Last Admin: 06/06/18 10:35 Dose: 325 mg Bisacodyl (Dulcolax) 10 mg PO Q12H PRN PRN Reason: Constipation Bisacodyl (Dulcolax) 10 mg OH Q12H PRN PRN Reason: Constipation Diphenhydramine HCl (Benadryl) 25 mg PO Q6H PRN PRN Reason: Itching & Insomnia or Alexander Axel Famotidine (Pepcid) 20 mg PO 0900 [facility] Last Admin: 06/06/18 10:35 Dose: 20 mg Guaifenesin/Dextromethorphan (Robitussin Dm) 15 ml PO Q4H PRN PRN Reason: Cough Hydralazine HCl (Apresoline) 10 mg SLOW IVP Q6H PRN PRN Reason: To Maintain SBP< 140mmHG Last Admin: 06/03/18 02:11 Dose: 10 mg Losartan Potassium (Cozaar) 50 mg PO DAILY [facility] Last Admin: 06/06/18 10:34 Dose: 50 mg Metoprolol Tartrate (Lopressor) 25 mg PO BID [facility] Last Admin: 06/06/18 10:35 Dose: 25 mg Mineral Oil (Fleet Mineral Oil) 133 ml OH DAILYPRN PRN PRN Reason: Constipation Morphine Sulfate (Morphine) 2 mg SLOW IVP Q15MIN PRN PRN Reason: Severe Pain (7-10) Nitroglycerin (Nitrostat) 0.4 mg SL Q5MIN PRN PRN Reason: Chest Pain Ondansetron HCl (Zofran) 4 mg IVP Q6H PRN PRN Reason: Nausea/Vomiting Sodium Chloride (Flush - Normal Saline) 10 ml IVF PRN PRN PRN Reason: Saline Flush
[2018-06-06 11:50] VITALS: BMI 28.6
--- NOTE | 2018-06-06 14:34 | PRG ---
DATE OF SERVICE: 06/06/2018 SUBJECTIVE: In no distress. OBJECTIVE: VITAL SIGNS: He is afebrile. Heart rate is in 60s, respiratory rate is 18, oximetry is 99 on 2 L, and blood pressure is 144/60. LUNGS: Unchanged. HEART: Unchanged. ABDOMEN: Unchanged. LABORATORY DATA: INR on is 1.5. He has a bioprosthetic valve in place, appears to be stable. His white count is 11.5; hemoglobin is 9, which is stable; and platelets 235. Electrolytes are normal. Creatinine has come down from 1.65 to 1.08. Intake and output, positive 185. IMPRESSION AND PLAN: Status post aortic valve replacement with a bioprosthetic valve. Clinically doing well. We will sign off. Job ID: [id number]
[2018-06-07 04:57] LABS: #Basophils 0.1 thou/uL (0.0-0.2); #Eosinphils 0.5 thou/uL (0.0-0.7); #Lymphocytes 1.6 thou/uL (1.20-3.40); #Monocytes 1.4 thou/uL (0.11-0.59); #Neutrophils 7.7 thou/uL (1.40-6.50); %Basophils 1.3 % (0.0-1.0); %Eosinophils 4.8 % (0.0-10.0); %Lymphocytes 14.1 % (21.0-51.0); %Monocytes 11.9 % (0.0-10.0); %Neutrophils 67.9 % (42.0-75.0); Hemoglobin 9.4 g/dL (14.0-18.0); Mean Corpuscular HGB CONC 32.7 g/dL (32.0-36.0); Mean Corpuscular Hemoglobin 31.3 pg (27.0-31.0); Mean Corpuscular Volume 95.6 fL (78.0-98.0); Platelet Count 329 thou/uL (130-400); RBC Distribution Width 11.8 % (11.5-14.5); White Blood Cell (WBC) Count 11.3 thou/uL (4.8-10.8)
[2018-06-07 05:17] LABS: Anion Gap 14 mmol/L (10-20); BUN (Urea Nitrogen) 25 mg/dL (8.4-25.7); Calc. Creatinine Clearance 74 mL/min (70-130); Calcium 8.9 mg/dL (7.8-10.44); Carbon Dioxide 19 mmol/L (23-31); Chloride 107 mmol/L (98-107); Estimated GFR-MDRD 76; Glucose 88 mg/dL (83-110); Potassium 3.8 mmol/L (3.5-5.1); Sodium 136 mmol/L (136-145)
[2018-06-07 07:31] VITALS: TEMP 97.6
[2018-06-07] MEDS: Metoprolol Tartrate 25 MG TAB PO SCH (08:55)
[2018-06-07] MEDS: Aspirin 325 mg Enteric Coated Tablet PO SCH (08:55)
[2018-06-07] MEDS: Amiodarone 200 MG TAB PO SCH (08:55)
[2018-06-07] MEDS: Famotidine 20 MG TAB PO SCH (08:55)
[2018-06-07] MEDS: Losartan 25 MG TAB PO SCH (08:55)
[2018-06-07 09:16] LABS: Actual Bicarbonate (HCO3a) 21.4 mEq/L (22-28); Analyzer IN Cardio OR; Base Excess (BEa) -2.8 mEq/L (-2.0 to +3.0); CO2 Tension 35.8 mmHg (35.0-45.0); Calcium, Ionized 1.12 mmol/L (1.12-1.30); Carboxyhemoglobin (COHb) 0.5 gm% (0.0-3.0); Hemoglobin (Hb) 13.7 g/dL (14.0-18.0); O2 Tension (PaO2) 285.8 mmHg (> 70.0); Potassium - ABG Lab 4.18 mmol/L (3.70-5.30)
[2018-06-07 09:16] LABS: Actual Bicarbonate (HCO3a) 21.7 mEq/L (22-28); Analyzer IN Cardio OR; Base Excess (BEa) -4.6 mEq/L (-2.0 to +3.0); Calcium, Ionized 1.03 mmol/L (1.12-1.30); Carboxyhemoglobin (COHb) 0.3 gm% (0.0-3.0); Hemoglobin (Hb) 10.8 g/dL (14.0-18.0); O2 Tension (PaO2) 477.3 mmHg (> 70.0); Potassium - ABG Lab 4.78 mmol/L (3.70-5.30)
[2018-06-07 09:17] LABS: Actual Bicarbonate (HCO3a) 19.5 mEq/L (22-28); Analyzer IN Cardio OR; Base Excess (BEa) -6.3 mEq/L (-2.0 to +3.0); CO2 Tension 39.8 mmHg (35.0-45.0); Calcium, Ionized 1.17 mmol/L (1.12-1.30); Carboxyhemoglobin (COHb) 0.3 gm% (0.0-3.0); Hemoglobin (Hb) 12.6 g/dL (14.0-18.0); O2 Tension (PaO2) 278.8 mmHg (> 70.0); Potassium - ABG Lab 4.62 mmol/L (3.70-5.30); pH, Arterial 7.31 (7.35-7.45)
[2018-06-07 09:17] LABS: Actual Bicarbonate (HCO3a) 22.3 mEq/L (22-28); Analyzer IN Cardio OR; Base Excess (BEa) -3.8 mEq/L (-2.0 to +3.0); CO2 Tension 44.7 mmHg (35.0-45.0); Calcium, Ionized 1.55 mmol/L (1.12-1.30); Carboxyhemoglobin (COHb) 0.3 gm% (0.0-3.0); Hemoglobin (Hb) 10.5 g/dL (14.0-18.0); O2 Tension (PaO2) 390.1 mmHg (> 70.0); Potassium - ABG Lab 5.24 mmol/L (3.70-5.30); pH, Arterial 7.32 (7.35-7.45)
[2018-06-07 09:17] LABS: Actual Bicarbonate (HCO3v) 22 mEq/L (22-28); Analyzer IN Cardio OR; Base Excess -4.3 mEq/L (-2.0 to +3.0); Calcium, Ionized 1.04 mmol/L (1.16-1.32); Chloride (ABG LAB) 106 mmol/L (98-106); Hemoglobin (Hb) 10.7 g/dL (12.6-17.4); Potassium - ABG Lab 4.59 mmol/L (3.70-5.30); Sodium 134.3 mmol/L (133-146); pH (venous) 7.29 (7.32-7.43)
[2018-06-07 09:32] LABS: Puncture Site ALINE
[2018-06-07 09:32] LABS: Puncture Site ALINE
[2018-06-07 09:33] LABS: Puncture Site ALINE
[2018-06-07 09:33] LABS: Puncture Site ALINE
[2018-06-07 10:59] VITALS: BP 164/73
--- NOTE | 2018-06-07 12:38 | DIS ---
DATE OF ADMISSION: 05/26/2018 DATE OF DISCHARGE: 06/07/2018 PRIMARY CARE PHYSICIAN: [facility] Call admission. DISCHARGE DISPOSITION: Home. PRIMARY DISCHARGE DIAGNOSES: 1. Critical aortic wall stenosis. 2. Status post aortic wall replacement. 3. Vertebral artery stenosis. 4. Arteriovenous malformation. 5. Atrial fibrillation. 6. Acute kidney failure, improved. SECONDARY DISCHARGE DIAGNOSES: COPD, hypertension, and hypothyroidism. PRIMARY PROCEDURE/OPERATION: Cardiac catheterization was normal. Aortic wall replacement was done by Dr. Zeferino Yates with bioprosthetic wall. RADIOLOGICAL INVESTIGATION: Chest x-ray unremarkable. CT angiography negative for PE. Echocardiography showed severe aortic stenosis, moderate aortic regurgitation, and moderate mitral regurgitation. CT angiography showed vertebral artery stenosis with AV malformation. Subsequently, several chest x-ray after surgery was unremarkable. SIGNIFICANT LABORATORY DATA: WBC 11.3, hemoglobin 9.4, and platelet 329. INR 1.5. Sodium 136, potassium 3.8, BUN 25, creatinine 0.97, and calcium 8.9. ANCA and immunology testing negative. DISCHARGE MEDICATIONS: 1. Tramadol 50 mg q.8 hourly p.r.n. 2. Losartan 50 mg daily. 3. Amiodarone 400 mg p.o. b.i.d. for 2 weeks, then 200 mg p.o. b.i.d. for 2 weeks, and then 200 mg p.o. daily. 4. Aspirin 325 mg p.o. daily. 5. Lipitor 10 mg p.o. daily. 6. Metoprolol 25 mg p.o. b.i.d. CONTRAINDICATION: None. CODE STATUS: Full code. INPATIENT RESIDENT CARE SPEC: Dr. Moon was consulted while in hospital, who did cardiac cath. Dr. Zeferino Yates was consulted for aortic wall replacement. Dr. Chris Ramirez was consulted for AV malformation. Dr. Lowry was following because the patient stayed in ICU. TEST RESULT PENDING ON DISCHARGE: None. ALLERGIES: NO KNOWN DRUG ALLERGIES. DISCHARGE PLAN: Post hospital, the patient has appointment with Dr. Moon on June 27, 2018 at 8:45 a.m. The patient has appointment with Dr. Zeferino Yates on June 21, 2018 at 3 p.m. The patient will follow up with primary care physician in 1 week. The patient will continue cardiac rehab. HOSPITAL COURSE: A 72-year-old male, who was admitted to the hospital by Dr. Kelly on May 27, 2018. Please see his H and P for further details. He came to hospital with shortness of breath. He was diagnosed with severe aortic stenosis as well as moderate aortic and mitral regurgitation. Cardiology was consulted preoperatively. The patient underwent cardiac catheterization, which was normal without any blockage. The patient was needing aortic wall replacement, and that is why CT Surgery was consulted and they did aortic wall replacement with bioprosthetic wall. Before surgery, the patient also had CT angiography and carotid Doppler, which showed stenosis and that is why, we consulted neurosurgeon. Neurosurgeon recommended that it is not operable because of AV malformation in intracranial portion. The patient had successful surgery without any complications. Postoperatively, the patient was managed in ICU. Pulmonary/Critical Care group was following. He had a mild acute kidney injury and atrial fibrillation postoperatively and that is why he required amiodarone and with that, he converted to sinus rhythm. Upon stabilization, the patient was transferred from ICU to telemetry floor. He did well with cardiac rehab. He is currently asymptomatic. While in hospital, we also did an immunology workup with ANCA because of vasculopathy, but it was negative. Because of his vasculopathy, we started Lipitor therapy. Rest of medication will be continued as per previous. The patient is seen and examined at bedside today. Plan of care discussed with the patient and family member. All new medication prescription given to him. PHYSICAL EXAMINATION: VITAL SIGNS: Currently, temperature 97.6, pulse 63, respiratory rate 18, saturation 97% on room air, and blood pressure 145/65. Weight 166 pounds. GENERAL: The patient is currently alert and awake. No obvious acute distress. HEENT: Head, normocephalic and atraumatic. Eyes, pupils are round and reactive to light. Extraocular muscle intact. ENT, oropharynx within normal limits. Moist mucous membranes. No oral lesion. No pharyngeal erythema. No exudate. NECK: Supple. No JVD. No thyromegaly. No carotid bruit. LUNGS: Clear to auscultation without any rhonchi. CARDIAC: S1 and S2. Appears regular without any murmur. No gallop. No rub. ABDOMEN: Soft and benign. EXTREMITIES: No edema. NEUROLOGIC: Nonfocal examination. SKIN: Surgical site is clean and healthy. Plan of care discussed with the family member as well. Job ID: [id number]
--- NOTE | 2018-06-08 05:31 | DIS ---
DATE OF ADMISSION: 05/26/2018 DATE OF DISCHARGE: 06/07/2018 DIAGNOSES: 1. Severe aortic stenosis. 2. Hypertension. 3. Right cerebral arteriovenous malformation. PROCEDURES: 1. Cardiac catheterization. 2. Aortic valve replacement with a #23 Magna bioprosthetic valve. DESCRIPTION OF HOSPITAL STAY: Mr. Belle was admitted with short of breath. He underwent appropriate workup, which revealed on echocardiogram severe aortic stenosis. He also had a carotid ultrasound performed and subsequent CTA of his carotids. This showed no significant carotid disease, but did show a suggestion of a right hemispheric AVM. This was followed up with a dedicated CTA of the brain, which showed an extensive large AVM. He was seen by Dr. Perez of Neurosurgery, who felt this was a nonsurgically treated finding that just needed good blood pressure control and for him to stop smoking. He was cleared for sternotomy at that point. He underwent aortic valve replacement as above. Postoperatively, he has done well. He had a short bout of atrial fibrillation which has been controlled with amiodarone. At the time of discharge, he is ambulatory, tolerating regular diet, having good bowel and bladder function. Incisions are clean and dry without evidence of infection. DISCHARGE MEDICATIONS: Include. 1. Aspirin 325 mg daily. 2. Losartan 25 mg daily. 3. Amiodarone taper. 4. Metoprolol 25 mg b.i.d. FOLLOWUP: Follow up with me in [address] Moon in a month. Job ID: [id number]
== END 2018-06-07 12:25 | disposition home or self-care (01) | DRG 216 ==
LOC: ERS 19:06 → 2SW 23:15 → OBSVTOIN 23:15 → 2NO 05-30 23:44 → CCU 06-02 08:53 → 2NO 06-05 08:41
PROVIDERS: ADMIT Internal Medicine; ATTEND Internal Medicine
PROC: 4A023N8 Measurement of Cardiac Sampling and Pressure, Bilateral, Percutaneous Approach (ICD-10-PCS; 2018-05-30)
PROC: B2111ZZ Fluoroscopy of Multiple Coronary Arteries using Low Osmolar Contrast (ICD-10-PCS; 2018-05-30)
PROC: B2161ZZ Fluoroscopy of Right and Left Heart using Low Osmolar Contrast (ICD-10-PCS; 2018-05-30)
PROC: 4A1239Z Monitoring of Cardiac Output, Percutaneous Approach (ICD-10-PCS; 2018-05-30)
PROC: 02RF08Z Replacement of Aortic Valve with Zooplastic Tissue, Open Approach (ICD-10-PCS; principal; 2018-06-02)
DX: I08.0 Rheumatic disorders of both mitral and aortic valves (principal); Q28.2 Arteriovenous malformation of cerebral vessels; I50.23 Acute on chronic systolic (congestive) heart failure; N17.9 Acute kidney failure, unspecified; J98.11 Atelectasis; G93.40 Encephalopathy, unspecified; I48.91 Unspecified atrial fibrillation; I99.9 Unspecified disorder of circulatory system; I65.02 Occlusion and stenosis of left vertebral artery; J44.9 Chronic obstructive pulmonary disease, unspecified; E03.9 Hypothyroidism, unspecified; I65.21 Occlusion and stenosis of right carotid artery; F17.210 Nicotine dependence, cigarettes, uncomplicated; I11.0 Hypertensive heart disease with heart failure; R94.6 Abnormal results of thyroid function studies
CPT/HCPCS: 36415; 36416; 36430; 70496; 70498; 71045; 71275; 80048; 80053; 80061; 82805; 82947; 83520; 83690; 83735; 83880; 84439; 84443; 84484; 85025; 85347; 85379; 85610; 85652; 85730; 86140; 86256; 86850; 86900; 86901; 93005; 93010; 93306; 93460; 93561; 93798; 93880; 94002; 94010; 94150; 94640; 96374; 99152; 99153; C1769; J0360; J0670; J1100; J1642; J1644; J1650; J1815; J1885; J1940; J2001; J2150; J2250; J2270; J2704; J2720; J3010; J3370; J3475; J3480; J7050; J7620; P9035; P9045; S0017; S0028

== ENCOUNTER 2018-06-15 17:55 | Inpatient (IN) | payer MEDICAID, SELFPAY ==
[2018-06-15 19:10] LABS: Hemoglobin 10.2 g/dL (14.0-18.0); Mean Corpuscular HGB CONC 32.4 g/dL (32.0-36.0); Mean Corpuscular Hemoglobin 30.8 pg (27.0-31.0); Mean Corpuscular Volume 95.1 fL (78.0-98.0); Mean Platelet Volume 7.6 fL (7.4-10.4); Platelet Count 445 thou/uL (130-400); RBC Distribution Width 12.2 % (11.5-14.5)
[2018-06-15 19:14] LABS: Bilirubin Negative (Negative); Blood, Urine Large (Negative); Clarity CLEAR (Clear); Glucose, Urine (Dipstick) Negative (Negative); Leukocyte Trace (Negative); Nitrite Negative (Negative); Protein, Urine (Dipstick) 100 mg/dL (Neg-Trace); Specific Gravity, Urine 1.017 (1.002-1.036)
[2018-06-15 19:16] LABS: Bacteria/HPF None Seen HPF (None Seen); Hyaline Casts/LPF 0-3 HYALINE CAST LPF (0-3 Hyaline); Pathc Cast-AUWi Flag 0.58 (0-2.49); RBC/HPF GREATER THAN 50-TNTC HPF (0-3); Squamous Epithelial 0-3 HPF (0-3)
[2018-06-15 19:23] LABS: ALT (SGPT) 17 U/L (8-55); AST (SGOT) 19 U/L (5-34); Albumin 3.7 g/dL (3.4-4.8); Alkaline Phosphatase 98 U/L (40-150); Anion Gap 16 mmol/L (10-20); BUN (Urea Nitrogen) 14 mg/dL (8.4-25.7); Bilirubin, Total 1.2 mg/dL (0.2-1.2); Calc. Creatinine Clearance 0 mL/min (70-130); Carbon Dioxide 17 mmol/L (23-31); Chloride 102 mmol/L (98-107); Estimated GFR-MDRD 54; Globulin 3.2 g/dL (2.4-3.5); Glucose 133 mg/dL (83-110); Potassium 4.3 mmol/L (3.5-5.1); Protein, Total 6.9 g/dL (5.8-8.1); Sodium 131 mmol/L (136-145)
[2018-06-15 19:35] LABS: Lymphocytes 2 % (21-51); MDiff Complete? YES; Monocytes 2 % (0-10); Neutrophil 96 % (42-75); Platelet Morphology Comment Appears Increased
[2018-06-15] MEDS ORDERED: Ondansetron ODT 4 MG TAB ONE (19:47)
[2018-06-15 20:00] LABS: CKMB 1.8 ng/mL (0-6.6)
--- NOTE | 2018-06-15 21:30 | RAD ---
FRONTAL VIEW CHEST: 06/15/18 COMPARISON: 06/05/18. INDICATION: Emergency exam. History of recent heart surgery. Valve replacement, with hematuria. FINDINGS: There is enlargement of the cardiac silhouette. Mild bibasilar densities indicate small volume pleura l fluid. There is interstitial prominence of the perihilar regions. Removal of prior right subclavian venous catheter. Evidence of prior sternotomy. There is a valvular prosthesis overlying the cardiac silhouette. IMPRESSION: 1. Evidence of CHF. 2. Mild bibasilar densities indicating pleural fluid. POS: [facility]
[2018-06-15] MEDS ORDERED: cefTRIAXone\\ROCEPHIN 1 GM VIAL ONE (21:31)
[2018-06-15] MEDS ORDERED: traMADol HCl 50 MG TAB PO PRN (21:31)
[2018-06-15] MEDS ORDERED: Metoprolol Tartrate 50 MG TAB ONE (21:31)
[2018-06-15] MEDS ORDERED: Morphine 4 MG/ML VIAL ONE (21:55)
[2018-06-15 22:10] LABS: Anion Gap 14 mmol/L (10-20); BUN (Urea Nitrogen) 15 mg/dL (8.4-25.7); Calc. Creatinine Clearance 0 mL/min (70-130); Carbon Dioxide 22 mmol/L (23-31); Chloride 100 mmol/L (98-107); Estimated GFR-MDRD 52; Glucose 130 mg/dL (83-110); Potassium 4.2 mmol/L (3.5-5.1); Sodium 132 mmol/L (136-145)
[2018-06-15] MEDS: cefTRIAXone\\ROCEPHIN 1 GM in Sodium Chloride 0.9% 100 ML IVPB SCH (23:58)
--- NOTE | 2018-06-16 00:30 | CON ---
DATE OF CONSULTATION: 06/15/2018 HISTORY OF PRESENT ILLNESS: Mr. Lara is a 72-year-old gentleman who underwent aortic valve replacement with a bioprosthetic valve approximately 1 week ago. He presented to emergency department tonight with complaint of left flank pain and hematuria 2 days ago. He has continued to have hematuria, although it is microscopic at this point. He has had no fever or chills at home. He feels fairly well other than the back pain. He has been walking at home. He has no incisional issues. His coronaries were normal preoperatively. He has a bioprosthetic valve implanted. PAST MEDICAL HISTORY: 1. Aortic stenosis. 2. Hypertension. 3. Dyslipidemia. PAST SURGICAL HISTORY: As above. MEDICATIONS: At home: 1. Aspirin 81 mg daily. 2. Amiodarone 400 mg b.i.d. 3. Metoprolol 25 mg b.i.d. 4. Losartan 50 mg b.i.d. 5. Atorvastatin 10 mg at bedtime. 6. Tramadol p.r.n. ALLERGIES: NONE. PHYSICAL EXAMINATION: VITAL SIGNS: His temperature is 98.4, pulse is 62 and regular, blood pressure is 190/83. LUNGS: Clear bilaterally. His chest x-ray is clear without infiltrate. CARDIOVASCULAR: His cardiac silhouette is normal. Sternal wires are well aligned. Incision looks good with no drainage. There is no erythema or induration. ABDOMEN: Soft and nontender with no mass. There is no edema. He has no real costophrenic angle tenderness. MUSCULOSKELETAL: His tenderness in his back is low in the paraspinous musculature on the left side just above his sacrum. LABORATORY DATA: Of note his white blood cell count is 21.0, platelet count is 445,000, hemoglobin is 10.2, creatinine is 1.30, potassium is 4.3. ASSESSMENT/PLAN: Due to his bioprosthetic valve, I think he needs to get IV antibiotics. I have ordered him Rocephin. We will reevaluate his lab work tomorrow morning. If further workup is indicated, we can certainly do this at that time. Job ID: [id number]
[2018-06-16] MEDS ORDERED: traMADol HCl 50 MG TAB PO PRN (01:35)
[2018-06-16 02:08] LABS: #Basophils 0.1 thou/uL (0.0-0.2); #Lymphocytes 1.1 thou/uL (1.20-3.40); #Monocytes 1.6 thou/uL (0.11-0.59); #Neutrophils 19.4 thou/uL (1.40-6.50); %Basophils 0.5 % (0.0-1.0); %Monocytes 7.4 % (0.0-10.0); %Neutrophils 87.2 % (42.0-75.0); Hemoglobin 9.8 g/dL (14.0-18.0); Mean Corpuscular HGB CONC 32.7 g/dL (32.0-36.0); Mean Corpuscular Hemoglobin 30.5 pg (27.0-31.0); Mean Corpuscular Volume 93.3 fL (78.0-98.0); Mean Platelet Volume 7.4 fL (7.4-10.4); Platelet Count 433 thou/uL (130-400); RBC Distribution Width 12.3 % (11.5-14.5); Red Blood Cell (RBC) Count 3.21 mill/uL (4.70-6.10); White Blood Cell (WBC) Count 22.3 thou/uL (4.8-10.8)
[2018-06-16 02:33] LABS: Troponin I 0.074 ng/mL (< 0.028)
--- NOTE | 2018-06-16 02:44 | HP ---
PRIMARY CARE DOCTOR: Patient goes to [facility]. CODE STATUS: Full code. TIME OF EVALUATION: 09:00 p.m. CHIEF COMPLAINT: Hematuria. HISTORY OF PRESENT ILLNESS: This is a 72-year-old male patient with past medical history of hypertension, came to the hospital after having hematuria for 2 days. No clear triggers, no alleviating factors. The patient noted to have some burning on urination. The patient had been hospitalized the past week to have aortic valve replacement by Dr. Yates. Symptoms were mild to moderate. The patient also reported some generalized weakness. No fever, no chills. REVIEW OF SYSTEMS: CONSTITUTIONAL: The patient had no fever or chills. The patient reported generalized weakness. RESPIRATORY: No cough, sputum production, shortness of breath. CARDIOVASCULAR: No chest pain or palpitation. GASTROINTESTINAL: No nausea, no vomiting, diarrhea, abdominal pain. CENTRAL NERVOUS SYSTEM: No dizziness, headache, or feeling lightheaded. GENITOURINARY: The patient has hematuria on the Shipman and also burning on urination. EXTREMITIES: No leg swelling. All other systems were reviewed and negative except for the findings mentioned above. PAST MEDICAL HISTORY: As reported in HPI. PAST SURGICAL HISTORY: Valve replacement on June 02, 2018. SOCIAL HISTORY: The patient is a former tobacco user. Lives in [place] and is staying with family currently. FAMILY HISTORY: Reviewed and noncontributory for current presentation. ALLERGIES: NO KNOWN DRUG ALLERGIES. REPORTED MEDICATIONS: 1. Losartan. 2. Aspirin. 3. Atorvastatin. 4. Metoprolol. 5. Tramadol. 6. Amiodarone. PHYSICAL EXAMINATION: VITAL SIGNS: On presentation, blood pressure 209/63 with heart rate 62, respiratory rate 16, temperature 97.3, pain 5/10. Oxygen saturation 97% on room air. GENERAL APPEARANCE: The patient is alert, oriented, not in acute distress. HEENT: Eyes, normal conjunctivae. Moist oral mucosa. Anicteric. No JVD. RESPIRATORY: Bilateral air entry. No rales. No wheezing. Symmetric expansion. CARDIOVASCULAR: Normal rate, regular rhythm. No murmurs. No gallops. No edema. ABDOMEN: Soft. Normal bowel sounds. MUSCULOSKELETAL: Baseline range of motion and strength. No tenderness. SKIN: Warm, intact. No pallor. No rash. No redness. Peripheral pulses are present. Capillary refill seems to be intact. NEUROLOGIC: No evidence of any new focal weakness. Baseline speech. Cranial nerves seems to be intact. PSYCHIATRIC: Patient is in good mood. No anxiety. Optimal judgment. GENITOURINARY: The patient has a Shipman placed and has hematuria. DIAGNOSTIC STUDIES: EKG was reviewed. The patient has sinus rhythm with first-degree AV block, left ventricular hypertrophy with QRS widening and repolarization abnormalities. Ventricular rate is 62, MS 246, QRS duration 118, QT corrected 564. Chest x-ray was reviewed. The patient has evidence of CHF with bibasilar densities indicating pleural fluid. LABORATORY DATA: Labs were reviewed. Hematology, white count 21, hemoglobin 10, MCV 95.1, platelet count 445. Chemistry; sodium 131, potassium 4.3, chloride 102, carbon dioxide is 17, anion gap 16, creatinine 1.3, the second one 1.35, GFR 54, glucose 133. Lactic acid 1.6. LFTs were negative. Troponin 0.079. Urine was done and the patient has white count 7 to 10. ASSESSMENT AND PLAN: The patient will be placed in the hospital with follow medical problems. 1. Possible urinary tract infection. UA is positive. We will start the patient on antibiotics, follow cultures, we will adjust treatment as needed depending on sensitivity. 2. Hematuria, clear etiology, could be related to previous Shipman the patient had in the hospital. We will do ultrasound of the kidney to rule out any other major physiologies. 3. Mildly elevated troponin, likely [id number] myocardial infarction type 2. We will follow trend and will treat accordingly. 4. Recent surgery of aortic valve replacement. Dr. Yates has seen the patient. No need for any further intervention. Home medications have been reconciled. 5. Uncontrolled hypertension. The patient presented with systolic 209/63. We will reconcile home medications, we will adjust treatment as needed. Might need IV p.r.n. medication for optimal control. 6. Deep venous thrombosis prophylaxis. Job ID: [id number]
[2018-06-16] MEDS ORDERED: Losartan 25 MG TAB PO SCH (09:00)
[2018-06-16] MEDS ORDERED: Aspirin 325 mg Enteric Coated Tablet PO SCH (09:00)
[2018-06-16] MEDS ORDERED: Atorvastatin Calcium 10 MG TAB PO SCH (09:00)
[2018-06-16] MEDS ORDERED: Amiodarone 200 MG TAB PO SCH (09:00)
[2018-06-16] MEDS ORDERED: Metoprolol Tartrate 25 MG TAB PO SCH (09:00)
[2018-06-16] MEDS: Aspirin 81 mg Enteric Coated Tablet PO SCH (09:20)
[2018-06-16] MEDS: Amiodarone 200 MG TAB PO SCH ×2 (09:20→21:21)
[2018-06-16] MEDS: Losartan 25 MG TAB PO SCH (09:20)
--- NOTE | 2018-06-16 09:48 | ULT ---
RENAL ULTRASOUND: HISTORY: Hematuria. COMPARISON: None. TECHNIQUE: Sagittal and transverse imaging of the kidneys is performed. FINDINGS: RIGHT KIDNEY: Normal cortical echotexture. No hydronephrosis. The right kidney measures 6.3 x 11.5 x 6.5 cm. There is heterogeneous echotexture within the left renal pelvis. There is a suggestion of dilatation of the left renal pelvis with possible debris in the left intrarenal collecting system. The left ki dney measures .2 x 11.6 x 6.7 cm. There is a tubular structure adjacent to the urinary bladder, of uncertain significance. Dilated ure ter cannot be excluded. Right ureteral jet is identified. Prevoid volume of the bladder is approxim ately 192 mL. At the floor of the bladder, there appears to be an echogenic focus with shadowing. Soft tissue calc ification is favored. IMPRESSION: Left-sided hydronephrosis with possible complex/infected urine in the left intrarenal collecting syst em. Correlate clinically. Further evaluation with a CT urogram may be beneficial. POS: [facility]
--- NOTE | 2018-06-16 11:42 | PDOC.PN ---
- Subjective Encounter Start Date: 06/16/18 Encounter Start Time: 11:15 Subjective: Patient examined, David Gamboa helped as a fur floor worker -: as patient is [facility] speaking only -: Denies complaints today, denies CP, SOB, CVA tenderness, dysuria - Objective Vital Signs & Weight: Vital Signs (12 hours) Temp Pulse Resp BP Pulse Ox 06/16/18 08:00 97.3 F L 61 20 142/65 H 92 L 06/16/18 04:29 97.3 F L 56 L 17 152/70 H 96 06/16/18 00:04 54 L 148/67 H Weight Weight 74.117 kg I&O: 06/15/18 06/16/18 06/17/18 06:59 06:59 06:59 Intake Total 0 Output Total 250 Balance -250 Result Diagrams: 06/16/18 02:00 06/15/18 21:44 Phys Exam - Physical Examination HEENT: PERRLA, moist MMs Neck: no nodes, no JVD Respiratory: no wheezing, clear to auscultation bilateral Cardiovascular: RRR Gastrointestinal: soft, non-tender Musculoskeletal: no edema, pulses present Neurological: non-focal, normal sensation Lymphatic: no nodes Psychiatric: normal affect, A&O x 3 Skin: no rash, normal turgor, cap refill <2 seconds Dx/Plan - Plan continue antibiotics, incentive spirometry Continue ABX, CT w/Urogram ordered per radiology for hydronephrosis -: on U/S. Encouraged SP due to recent cardiac surgery -: GFR decr today, will give 500ml of fluid to help flush contrast -: Will continue labs/monitor VS. Next steps based on CT results -: Discussed case with Dr. Vigil * . Review of Systems - Medications/Allergies Allergies/Adverse Reactions: Allergies Allergy/AdvReac Type Severity Reaction Status Date / Time No Known Allergies Allergy Verified 05/26/18 23:30 Medications: Current Medications Amiodarone HCl (Cordarone) 400 mg PO BID [facility] Last Admin: 06/16/18 09:20 Dose: 400 mg Aspirin (Ecotrin) 81 mg PO DAILY [facility] Last Admin: 06/16/18 09:20 Dose: 81 mg Atorvastatin Calcium (Lipitor) 10 mg PO HS [facility] Ceftriaxone Sodium 2 gm/ (Sodium Chloride) 100 mls @ 200 mls/hr IVPB Q24HR RALPH Ceftriaxone Sodium 1 gm/ (Sodium Chloride) 100 mls @ 200 mls/hr IVPB NOW [facility] Stop: 06/16/18 22:16 Last Admin: 06/15/18 23:58 Dose: Not Given Sodium Chloride (Normal Saline 0.9%) 500 mls @ 999 mls/hr IV .Q31M [facility] Stop: 06/16/18 12:15 Losartan Potassium (Cozaar) 50 mg PO DAILY [facility] Last Admin: 06/16/18 09:20 Dose: 50 mg Metoprolol Succinate (Toprol Xl) 25 mg PO DAILY [facility] Last Admin: 06/16/18 09:20 Dose: 25 mg Sodium Chloride (Flush - Normal Saline) 10 ml IVF Q12HR [facility] Last Admin: 06/16/18 09:21 Dose: 10 ml Sodium Chloride (Flush - Normal Saline) 10 ml IVF PRN PRN PRN Reason: Saline Flush Tramadol HCl (Ultram) 50 mg PO Q6H PRN PRN Reason: Pain
[2018-06-16] MEDS ORDERED: Sodium Chloride 0.9% 500 ML IV SCH (11:45)
--- NOTE | 2018-06-16 13:07 | CT ---
CT ABDOMEN AND PELVIS WITH AND WITHOUT IV CONTRAST: 06/16/2018 HISTORY: Urinary tract infection with left hydronephrosis. Hematuria. COMPARISON: Renal sonogram from 06/16/2018. FINDINGS: ABDOMEN: There are bilateral pleural effusions with associated bibasilar areas of consolidation, whi ch may be related to passive atelectasis, but bibasilar pneumonia cannot be entirely excluded. The heart is mildly enlarged. There is partial visualization of an aortic valve. Minimal pericardia l thickening is present. There is moderate left hydronephrosis and dilatation of the left ureter, with increased density mater ial seen within the left renal collecting system and left ureter, on the pre-contrast images, which m ay suggest hemorrhage. No renal or ureteral calculus is visualized. There is a delayed nephrogram p hase of enhancement on the left, but no enhancing renal mass is appreciated; however, there is a lowe r density area seen within the superior pole, best appreciated on the delayed phases of images, which is not necessarily appreciated on the portal venous phase of imaging, and this is probably due to th e obstructed nature of the left kidney, as opposed to a renal mass, but follow-up evaluation is recom mended, after treatment. The right kidney demonstrates a normal CT appearance. There is prominent left-sided perinephric stranding, as well as periureteral stranding, with a small amount of free fluid seen within the pelvis, as well as stranding of fluid in a presacral location. The liver, spleen, pancreas, bilateral adrenal glands, right kidney, and urinary bladder demonstrate a normal CT appearance. There is no fluid collection seen to suggest an abscess collection. There is no lymphadenopathy seen . Vascular calcifications are seen in the abdominal aorta and involving the iliac arteries. A normal caliber retrocecal appendix is present. Scattered colonic diverticula are noted. PELVIS: IMPRESSION: 1. Moderate left hydronephrosis with increased density material in the left renal collecting system and ureter, which is suggestive of hemorrhage. 2. Area of diminished attenuation in the superior pole, left kidney, only seen on the delayed phase of imaging, and findings are probably secondary to the obstructed nature of the left kidney, as oppos ed to a renal mass; although, follow-up evaluation is recommended. 3. Perinephric and periureteral inflammatory stranding, as well as a small amount of fluid. Finding s may be related to obstruction of the left kidney, but associated infection cannot be entirely exclu ded. The etiology for the obstruction on the left is uncertain, although this may be secondary to th e hemorrhage within the ureter. No calculus is appreciated. There is no contrast seen in the left u reter. 4. Bilateral pleural effusions with bibasilar areas of consolidation, which may be related to passiv e atelectasis, but bibasilar pneumonia is a possibility. 5. Cardiomegaly with cardiac valve replacement. 6. Increased density within the gallbladder lumen on precontrast images, which may be related to eit her sludge and/or gallbladder calculi. 7. Nonspecific inflammatory stranding in the right inguinal region with associated enlarged lymph no de. The exact etiology for the stranding is uncertain, This may be inflammatory or infectious in et iology. Clinical correlation is suggested. POS: [facility]
[2018-06-16] MEDS ORDERED: Iopamidol 370 76% 100 ML VIAL ONE (14:49)
[2018-06-16] MEDS: Atorvastatin Calcium 10 MG TAB PO SCH (21:22)
[2018-06-16] MEDS: cefTRIAXone\\ROCEPHIN 1 GM in Sodium Chloride 0.9% 100 ML IVPB SCH ×3 (21:35→21:38)
[2018-06-16] MEDS: cefTRIAXone\\ROCEPHIN 2 GM in Sodium Chloride 0.9% 100 ML IVPB SCH (21:49)
[2018-06-17 06:01] LABS: #Basophils 0.2 thou/uL (0.0-0.2); #Lymphocytes 1.1 thou/uL (1.20-3.40); #Monocytes 1.4 thou/uL (0.11-0.59); #Neutrophils 10.8 thou/uL (1.40-6.50); %Basophils 1.2 % (0.0-1.0); %Eosinophils 0.3 % (0.0-10.0); %Monocytes 10.5 % (0.0-10.0); %Neutrophils 79.9 % (42.0-75.0); Hemoglobin 8.9 g/dL (14.0-18.0); Mean Corpuscular HGB CONC 32.6 g/dL (32.0-36.0); Mean Corpuscular Hemoglobin 30.4 pg (27.0-31.0); Mean Corpuscular Volume 93.3 fL (78.0-98.0); Mean Platelet Volume 7.6 fL (7.4-10.4); Platelet Count 373 thou/uL (130-400); RBC Distribution Width 12.5 % (11.5-14.5); Red Blood Cell (RBC) Count 2.91 mill/uL (4.70-6.10); White Blood Cell (WBC) Count 13.6 thou/uL (4.8-10.8)
[2018-06-17 06:16] LABS: ALT (SGPT) 11 U/L (8-55); AST (SGOT) 16 U/L (5-34); Alkaline Phosphatase 81 U/L (40-150); Anion Gap 10 mmol/L (10-20); BUN (Urea Nitrogen) 20 mg/dL (8.4-25.7); Bilirubin, Total 0.6 mg/dL (0.2-1.2); Calc. Creatinine Clearance 40 mL/min (70-130); Calcium 8.2 mg/dL (7.8-10.44); Carbon Dioxide 24 mmol/L (23-31); Chloride 102 mmol/L (98-107); Estimated GFR-MDRD 38; Globulin 2.7 g/dL (2.4-3.5); Glucose 95 mg/dL (83-110); Potassium 3.9 mmol/L (3.5-5.1); Protein, Total 5.7 g/dL (5.8-8.1); Sodium 132 mmol/L (136-145)
[2018-06-17] MEDS: Amiodarone 200 MG TAB PO SCH ×2 (09:16→21:00)
[2018-06-17] MEDS: Aspirin 81 mg Enteric Coated Tablet PO SCH (09:17)
[2018-06-17] MEDS: Losartan 25 MG TAB PO SCH (09:17)
--- NOTE | 2018-06-17 10:37 | PDOC.PN ---
- Subjective Encounter Start Date: 06/17/18 Encounter Start Time: 10:36 Mr. Belle was seen today in follow-up - Objective MAR Reviewed: Yes Vital Signs & Weight: Vital Signs (12 hours) Temp Pulse Resp BP Pulse Ox 06/17/18 07:42 98.3 F 66 18 123/58 L 95 06/17/18 04:01 98.5 F 67 20 165/72 H 93 L Weight Weight 164 lb 4.8 oz I&O: 06/16/18 06/17/18 06/18/18 06:59 06:59 06:59 Intake Total 0 2085 Output Total 250 200 Balance -250 1885 Result Diagrams: 06/17/18 05:34 06/17/18 05:34 Phys Exam - Physical Examination HEENT: PERRLA Respiratory: no wheezing, no rales, no rhonchi, clear to auscultation bilateral Cardiovascular: RRR + systolic murmur, radiating to the carotids Gastrointestinal: soft, non-tender, no distention, positive bowel sounds Musculoskeletal: no edema, pulses present Dx/Plan (1) Hematuria Code(s): R31.9 - HEMATURIA, UNSPECIFIED Status: Acute (2) Hydronephrosis, left Code(s): N13.30 - UNSPECIFIED HYDRONEPHROSIS Status: Acute (3) UTI (urinary tract infection) Status: Acute (4) S/P aortic valve replacement with bioprosthetic valve Code(s): Z95.3 - PRESENCE OF XENOGENIC HEART VALVE Status: Acute (5) Severe aortic stenosis Code(s): I35.0 - NONRHEUMATIC AORTIC (VALVE) STENOSIS Status: Chronic (6) Acute kidney injury Code(s): N17.9 - ACUTE KIDNEY FAILURE, UNSPECIFIED Status: Acute - Plan * Hematuria and Hydronephrosis- ? etiology- will consult Urology ( his daughter at the bedside, tells me that he has a history of hematuria a few months back, and was evaluated by a Urologist in [place]. He had an Ultrasound, and was found to have a stone. Apparently this passed, and his urine cleared * UTI- Continue Rocephin and Cipro while we await culture results * - he is s/p recent Aortic Valve replacement- clinically stable * Acute kidney injury- ? related to Obstruction- will place a maldonado, and check a FENA .
[2018-06-17] MEDS: Sodium Chloride 0.9% 1,000 ML IV SCH (11:55)
--- NOTE | 2018-06-17 15:52 | CON ---
DATE OF CONSULTATION: 06/17/2018 REASON FOR CONSULTATION: Gross hematuria and left hydronephrosis. REQUESTING PHYSICIAN: Dr. Vigil with Inpatient Medicine. HISTORY OF PRESENT ILLNESS: Mr. Yoshi Lara is a 72-year-old male with past medical history significant for hypertension, who recently underwent an aortic valve replacement by Dr. Yates. The patient had a relatively uneventful postoperative course. Two days prior to his presentation to the hospital, he developed gross hematuria, which was intermittent. He also had intermittent left-sided abdominal pain. No frequency, urgency, nocturia. The patient had mild burning with urination. Upon his presentation, he was found to have a white blood cell count of 21. A CT of the abdomen and pelvis was performed, which demonstrated left hydroureteronephrosis down to the level of the bladder with some increased density material within the collecting system along the course of the ureter, possibly consistent with hemorrhage. There was also some perinephric stranding and heterogeneity within the parenchyma of the kidney on delayed images. The patient was admitted and started on broad-spectrum antibiotics. Since his admission, the patient's pain has completely resolved. His hematuria is minimal. He had some dark-colored urine last night. The primary team had a Shipman placed this morning. There was no gross hematuria noted at that time. He had one episode of gross hematuria in the past while in [place] in 02/2018. He was diagnosed with a kidney stone at that time per his daughter. Prior to this, no significant voiding difficulty. No bothersome lower urinary tract symptoms. He has never had any surgery on his urinary tract. No other complaints. REVIEW OF SYSTEMS: Full 12-point review of systems was performed and is negative other than mentioned in HPI. Specifically, no fevers, chills. Had some nausea at the time of his admission, but this has resolved. PAST MEDICAL HISTORY: Hypertension. PAST SURGICAL HISTORY: Aortic valve replacement on 06/02/2018. SOCIAL HISTORY: The patient currently lives in [place], but he has been staying with his family here. He has a long-standing smoking history, but quit one week prior to his valve replacement. FAMILY HISTORY: Noncontributory. ALLERGIES: NO KNOWN DRUG ALLERGIES. HOME MEDICATIONS: Losartan, aspirin, atorvastatin, metoprolol, tramadol, amiodarone. PHYSICAL EXAMINATION: VITAL SIGNS: Temperature is 97.7, pulse 63, respirations 16, oxygen saturation 94% on room air, blood pressure 123/58. GENERAL: He is awake and alert, in no apparent distress. HEENT: Normocephalic, atraumatic. NECK: Supple. No masses or lymphadenopathy. CARDIOVASCULAR: Regular rate and rhythm. PULMONARY: Breathing unlabored. ABDOMEN: Soft, nontender/nondistended. No masses or organomegaly. No suprapubic tenderness to palpation. No CVA tenderness. GENITOURINARY: Uncircumcised penis without concerning lesions. Scrotum normal. Testes palpably normal bilaterally. Shipman catheter in place, draining clear yellow urine. EXTREMITIES: Warm and well perfused. No edema. NEUROLOGIC: No focal deficits. LABORATORY DATA: Urinalysis from 06/15/2018, demonstrates large blood with many red blood cells, 7 to 10 white blood cells per high-power field. No bacteria were noticed. Urine culture demonstrated a low colony count of lactose fermenting bacteria. White blood cell count today 13.6, hemoglobin 8.9, hematocrit 27.1, platelets 373. Sodium 132, potassium 3.9, chloride 102, bicarb 24, BUN 20, creatinine 1.78. ASSESSMENT: A 72-year-old male with gross hematuria and left hydroureteronephrosis, possible urinary tract infection. PLAN: I reviewed the clinical implications of gross hematuria and all potential etiologies including infection, inflammation, urolithiasis, and malignancy. I reviewed the CT results with the patient and his daughter via an certified court/medical interpreter. I explained that there appears to be some bleeding from the left renal collecting system. This may be secondary to infection in the setting of anticoagulation. His symptoms seem to be resolving. There was not a good delayed image on the CT with contrast to suggest any filling defects or masses within the collecting system of the kidney. This may need to be evaluated additionally in the future. The patient likely will require outpatient cystoscopy. His urine is currently becoming more clear. We will monitor this. If his condition worsens or hematuria persists, he may require evaluation as an inpatient. Thank you for allowing me to participate in the care of this patient. Urology will follow. Job ID: [id number]
[2018-06-17 17:07] LABS: Creatinine, Urine 187.01 mg/dL (63-166)
[2018-06-17] MEDS ORDERED: Acetaminophen 325 MG TAB PO PRN (18:28)
[2018-06-17] MEDS: Atorvastatin Calcium 10 MG TAB PO SCH (21:01)
[2018-06-17] MEDS: cefTRIAXone\\ROCEPHIN 2 GM in Sodium Chloride 0.9% 100 ML IVPB SCH (21:51)
[2018-06-18] MEDS: Sodium Chloride 0.9% 1,000 ML IV SCH ×2 (03:04→16:39)
[2018-06-18 05:17] LABS: Anion Gap 11 mmol/L (10-20); BUN (Urea Nitrogen) 21 mg/dL (8.4-25.7); Calc. Creatinine Clearance 43 mL/min (70-130); Calcium 7.9 mg/dL (7.8-10.44); Carbon Dioxide 22 mmol/L (23-31); Chloride 104 mmol/L (98-107); Estimated GFR-MDRD 42; Glucose 100 mg/dL (83-110); Potassium 3.7 mmol/L (3.5-5.1); Sodium 133 mmol/L (136-145)
[2018-06-18 06:04] LABS: Hemoglobin 8.2 g/dL (14.0-18.0); Lymphocytes 9 % (21-51); MDiff Complete? YES; Mean Corpuscular HGB CONC 32.1 g/dL (32.0-36.0); Mean Corpuscular Hemoglobin 29.7 pg (27.0-31.0); Mean Corpuscular Volume 92.6 fL (78.0-98.0); Mean Platelet Volume 7.3 fL (7.4-10.4); Monocytes 9 % (0-10); Neutrophil 82 % (42-75); Platelet Count 383 thou/uL (130-400); Platelet Morphology Comment Appears Adequate; RBC Distribution Width 12.7 % (11.5-14.5); Red Blood Cell (RBC) Count 2.74 mill/uL (4.70-6.10); White Blood Cell (WBC) Count 13.1 thou/uL (4.8-10.8)
--- NOTE | 2018-06-18 06:42 | PRG ---
DATE OF SERVICE: 06/18/2018 SUBJECTIVE: The patient overall is doing well. His hematuria is intermittent. Currently, the hematuria is worse than it was yesterday. Nursing was instructed to manually irrigate his Shipman catheter and there were a few small clots returned. There has been no issue with drainage of the Shipman catheter. The patient is not in any discomfort. No other complaints. OBJECTIVE: VITAL SIGNS: Temperature 97.5, pulse 63, respirations 18, oxygen saturation 94% on room air, and blood pressure 109/53. GENERAL: Resting comfortably, no apparent distress. CARDIOVASCULAR: Regular rate and rhythm. PULMONARY: Breathing unlabored. abdomen: Soft, nontender/nondistended. No suprapubic tenderness to palpation. BACK: No CVA tenderness. GENITOURINARY: Shipman catheter in place, draining dark red urine. EXTREMITIES: Warm and well perfused. No edema. NEUROLOGIC: No focal deficits. LABORATORY DATA: White blood cell count 13.1, hemoglobin 8.2, hematocrit 25.4, and platelets 383. 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 ASSESSMENT: A 72-year-old male with left hydronephrosis, gross hematuria, and urinary tract infection. PLAN: The patient's hematuria seems to be intermittent. The etiology of this remains unclear. Possibly secondary to urinary tract infection in the setting of anticoagulation. At this point, his catheter is draining well. If necessary, can be changed out to a 3-way Shipman catheter and continuous bladder irrigation can be initiated, although manual irrigation seems to be sufficient at this time. The patient has acute blood loss anemia, this is likely partially dilutional as well as related to his hematuria. We will closely monitor this. He is hemodynamically stable. Job ID: [id number]
[2018-06-18] MEDS: Amiodarone 200 MG TAB PO SCH ×2 (08:59→22:30)
[2018-06-18] MEDS: Aspirin 81 mg Enteric Coated Tablet PO SCH (08:59)
[2018-06-18] MEDS: Losartan 25 MG TAB PO SCH (10:44)
--- NOTE | 2018-06-18 11:10 | PDOC.PN ---
- Subjective Encounter Start Date: 06/18/18 Encounter Start Time: 11:08 Mr. Belle was seen today in follow-up of hematuria. He does not have any complaints. - Objective MAR Reviewed: Yes Vital Signs & Weight: Vital Signs (12 hours) Temp Pulse Resp BP Pulse Ox 06/18/18 08:00 97.9 F 62 16 92/53 L 95 06/18/18 04:11 97.5 F L 63 20 109/53 L 93 L Weight Weight 164 lb 4.8 oz I&O: 06/17/18 06/18/18 06/19/18 06:59 06:59 06:59 Intake Total 2085 1411 Output Total 200 1300 Balance 1885 111 Result Diagrams: 06/18/18 04:35 06/18/18 04:35 Phys Exam - Physical Examination HEENT: PERRLA Respiratory: no wheezing, no rales, no rhonchi, clear to auscultation bilateral Cardiovascular: RRR, no rub 3/6 systolic murmur Gastrointestinal: soft, non-tender, no distention, positive bowel sounds Musculoskeletal: no edema, pulses present Dx/Plan (1) Hematuria Code(s): R31.9 - HEMATURIA, UNSPECIFIED Status: Acute (2) Hydronephrosis, left Code(s): N13.30 - UNSPECIFIED HYDRONEPHROSIS Status: Acute (3) UTI (urinary tract infection) Status: Acute (4) S/P aortic valve replacement with bioprosthetic valve Code(s): Z95.3 - PRESENCE OF XENOGENIC HEART VALVE Status: Acute (5) Severe aortic stenosis Code(s): I35.0 - NONRHEUMATIC AORTIC (VALVE) STENOSIS Status: Chronic (6) Acute kidney injury Code(s): N17.9 - ACUTE KIDNEY FAILURE, UNSPECIFIED Status: Acute - Plan * Hematuria- his urine had cleared some, but today it is much darker * Will change to continue bladder irrigation * Acute blood loss anemia- likely from the hematuria- will continue to monitor his H&H, and transfuse as needed * Aortic Stenosis- he is s/p recent bioprosthetic Valve replacement * UTI- urine culture unfortunately was unrevealing- will continue Levaquin and Rocephin, and monitor . * Acute Kidney injury- slowly improving
[2018-06-18] MEDS: Atorvastatin Calcium 10 MG TAB PO SCH (22:30)
[2018-06-18] MEDS: cefTRIAXone\\ROCEPHIN 2 GM in Sodium Chloride 0.9% 100 ML IVPB SCH (22:55)
[2018-06-19 04:32] LABS: Anion Gap 10 mmol/L (10-20); BUN (Urea Nitrogen) 16 mg/dL (8.4-25.7); Calc. Creatinine Clearance 54 mL/min (70-130); Calcium 7.8 mg/dL (7.8-10.44); Carbon Dioxide 21 mmol/L (23-31); Chloride 107 mmol/L (98-107); Estimated GFR-MDRD 54; Glucose 92 mg/dL (83-110); Potassium 3.5 mmol/L (3.5-5.1); Sodium 134 mmol/L (136-145)
[2018-06-19 05:04] LABS: Band 4 % (5-11); Hemoglobin 7.9 g/dL (14.0-18.0); Lymphocytes 15 % (21-51); MDiff Complete? YES; Mean Corpuscular HGB CONC 33.2 g/dL (32.0-36.0); Mean Corpuscular Hemoglobin 30.6 pg (27.0-31.0); Mean Corpuscular Volume 92.2 fL (78.0-98.0); Mean Platelet Volume 6.8 fL (7.4-10.4); Monocytes 10 % (0-10); Neutrophil 71 % (42-75); Platelet Count 397 thou/uL (130-400); Red Blood Cell (RBC) Count 2.57 mill/uL (4.70-6.10); White Blood Cell (WBC) Count 9.4 thou/uL (4.8-10.8)
[2018-06-19 06:16] VITALS: BMI 27.1
[2018-06-19] MEDS: Sodium Chloride 0.9% 1,000 ML IV SCH ×2 (07:23→16:50)
[2018-06-19] MEDS: Losartan 25 MG TAB PO SCH (08:10)
[2018-06-19] MEDS: Aspirin 81 mg Enteric Coated Tablet PO SCH (08:11)
[2018-06-19] MEDS: Amiodarone 200 MG TAB PO SCH ×2 (08:11→21:00)
--- NOTE | 2018-06-19 08:41 | PRG ---
DATE OF SERVICE: 06/19/2018 SUBJECTIVE: The patient's catheter was exchanged for a 3-way catheter and he was started on continuous bladder irrigation. There were small amounts of clot. The CBI has ran relatively low most of the night, but he continues to have hematuria. Hemoglobin has dropped to 7.9. OBJECTIVE: VITAL SIGNS: Temperature is 97.4, pulse 61, respirations 16, oxygen saturation 94% on room air, blood pressure 144/64. GENERAL: He is awake, alert, in no apparent distress. CARDIOVASCULAR: Regular rate and rhythm. PULMONARY: Breathing unlabored. ABDOMEN: Soft, nontender/nondistended. No masses or organomegaly. No suprapubic tenderness to palpation. No CVA tenderness. GENITOURINARY: 3-way Shipman catheter in place draining red urine on low rate CBI. EXTREMITIES: Warm, well perfused. No edema. LABORATORY DATA: Hemoglobin 7.9, hematocrit 23.7. ASSESSMENT: A 72-year-old male with gross hematuria, left hydronephrosis, urinary tract infection. PLAN: The etiology of the patient's hematuria is not completely clear. The amount of hematuria has decreased, but he does have acute blood loss anemia with a hemoglobin of 7.9, hematocrit of 23.7. Cystoscopy with retrograde and possible diagnostic ureteroscopy may be necessary during this hospitalization. The patient was made n.p.o. at this point. I will discuss with the operating room timing of doing this and adjust his diet accordingly. Job ID: [id number]
--- NOTE | 2018-06-19 16:02 | PDOC.PN ---
- Subjective Encounter Start Date: 06/19/18 Encounter Start Time: 16:01 Mr. Belle was seen today in follow-up of hematuria. He does not have any complaints today. There is noted less hematuria, but still present. - Objective MAR Reviewed: Yes Vital Signs & Weight: Vital Signs (12 hours) Temp Pulse Resp BP Pulse Ox 06/19/18 15:31 98.1 F 64 20 135/62 95 06/19/18 12:14 97.3 F L 57 L 16 141/62 H 98 06/19/18 07:38 97.4 F L 61 16 144/64 H 94 L Weight Weight 168 lb 6.4 oz I&O: 06/18/18 06/19/18 06/20/18 06:59 06:59 06:59 Intake Total 1411 4420 Output Total 1300 1950 Balance 111 2470 Result Diagrams: 06/19/18 04:06 06/19/18 04:06 Phys Exam - Physical Examination HEENT: PERRLA Respiratory: no wheezing, no rales, no rhonchi, clear to auscultation bilateral Cardiovascular: RRR 2/6 systolic murmur Gastrointestinal: soft, non-tender, no distention, positive bowel sounds Musculoskeletal: no edema, pulses present, edema present Neurological: non-focal Dx/Plan (1) Hematuria Code(s): R31.9 - HEMATURIA, UNSPECIFIED Status: Acute (2) Hydronephrosis, left Code(s): N13.30 - UNSPECIFIED HYDRONEPHROSIS Status: Acute (3) UTI (urinary tract infection) Status: Acute (4) S/P aortic valve replacement with bioprosthetic valve Code(s): Z95.3 - PRESENCE OF XENOGENIC HEART VALVE Status: Acute (5) Severe aortic stenosis Code(s): I35.0 - NONRHEUMATIC AORTIC (VALVE) STENOSIS Status: Chronic (6) Acute kidney injury Code(s): N17.9 - ACUTE KIDNEY FAILURE, UNSPECIFIED Status: Acute - Plan * Hematuria- ? etiology continue bladder irrigation * Plan is for cystoscopy during this admission * Recent AVR- stable * UTI- will continue Rocephin and Levaquin for now- cultures were unrevealing.
[2018-06-19] MEDS: cefTRIAXone\\ROCEPHIN 2 GM in Sodium Chloride 0.9% 100 ML IVPB SCH (21:00)
[2018-06-19] MEDS: Atorvastatin Calcium 10 MG TAB PO SCH (21:00)
[2018-06-20] MEDS: Sodium Chloride 0.9% 1,000 ML IV SCH ×2 (08:00→20:58)
[2018-06-20] MEDS: Amiodarone 200 MG TAB PO SCH ×2 (08:27→20:57)
[2018-06-20] MEDS: Losartan 25 MG TAB PO SCH (08:27)
[2018-06-20] MEDS: Aspirin 81 mg Enteric Coated Tablet PO SCH (08:28)
[2018-06-20] MEDS ORDERED: Iothalamate Meglumine 60% 50 ML VIAL FS ONE (11:44)
[2018-06-20] MEDS ORDERED: Fentanyl 100 MCG/2 ML VIAL ONE (12:55)
--- NOTE | 2018-06-20 13:13 | PRG ---
DATE OF SERVICE: 06/20/2018 SUBJECTIVE: The patient overall has improved. His CBI has been on low rate and he has not required manual irrigation of the catheter. He continues to have mild hematuria. No H and H was done this morning. No pain. OBJECTIVE: VITAL SIGNS: Temperature is 97.5, heart rate 59, respirations 16, oxygen saturation 96% on room air, blood pressure 146/67. GENERAL: Awake, alert, in no apparent distress. CARDIOVASCULAR: Regular rate and rhythm. PULMONARY: Breathing unlabored. No wheezing. ABDOMEN: Soft, nontender/nondistended. GENITOURINARY: Shipman catheter draining blood-tinged urine on low rate CBI. EXTREMITIES: Warm, well perfused. No edema. ASSESSMENT: A 72-year-old male with possible urinary tract infection, gross hematuria, left hydroureteronephrosis, acute blood loss anemia. PLAN: I reviewed the patient's clinical situation with he and his family via an automotive parts interpreter. He has had ongoing hematuria and has acute blood loss anemia from this. I discussed options with the patient. After indications/risks/benefits/alternatives/possible outcomes were discussed with the patient in detail, he elected to proceed with cystoscopy with clot evacuation, retrograde ureteral pyelogram, possible diagnostic ureteroscopy and all indicated procedures. This will be performed today. Job ID: [id number]
--- NOTE | 2018-06-20 14:53 | RAD ---
RETROGRADE URETEROGRAM WITH INTRAOPERATIVE FLUOROSCOPY: HISTORY: Hydronephrosis. FINDINGS: Intraoperative fluoroscopy was provided for a retrograde study. Spot fluoroscopic images show contra st opacification of the bilateral decompressed ureters, a decompressed right renal collecting system, and a mildly distended left renal collecting system. Some contrast adjacent to the collecting syst em may represent contrast extending outside the urothelium. POS: [facility]
[2018-06-20] MEDS ORDERED: Lidocaine 1% PF 5 ML VIAL ONE (16:19)
[2018-06-20] MEDS ORDERED: ePHEDrine 50 MG/ML VIAL ONE (16:19)
[2018-06-20] MEDS ORDERED: PROPOFOL 200 MG/20 ML VIAL ONE (16:19)
--- NOTE | 2018-06-20 17:04 | PDOC.PN ---
- Subjective Encounter Start Date: 06/20/18 Encounter Start Time: 17:03 Mr. Belle was seen today in follow-up of hematuria. He does not have any complaints. He says he feels fine. - Objective MAR Reviewed: Yes Vital Signs & Weight: Vital Signs (12 hours) Temp Pulse Resp BP Pulse Ox 06/20/18 15:44 96.9 F L 06/20/18 15:08 62 18 128/63 94 L 06/20/18 08:00 97.5 F L 59 L 16 146/67 H 96 Weight Weight 165 lb 11.2 oz I&O: 06/19/18 06/20/18 06/21/18 06:59 06:59 06:59 Intake Total 4420 2670 Output Total 1950 2300 Balance 2470 370 Result Diagrams: 06/19/18 04:06 06/19/18 04:06 Phys Exam - Physical Examination HEENT: PERRLA Respiratory: no wheezing, no rales, no rhonchi, clear to auscultation bilateral Cardiovascular: RRR, no significant murmur, no rub Gastrointestinal: soft, non-tender, positive bowel sounds Musculoskeletal: no edema, pulses present Dx/Plan (1) Hematuria Code(s): R31.9 - HEMATURIA, UNSPECIFIED Status: Acute (2) Hydronephrosis, left Code(s): N13.30 - UNSPECIFIED HYDRONEPHROSIS Status: Acute (3) UTI (urinary tract infection) Status: Acute (4) S/P aortic valve replacement with bioprosthetic valve Code(s): Z95.3 - PRESENCE OF XENOGENIC HEART VALVE Status: Acute (5) Severe aortic stenosis Code(s): I35.0 - NONRHEUMATIC AORTIC (VALVE) STENOSIS Status: Chronic (6) Acute kidney injury Code(s): N17.9 - ACUTE KIDNEY FAILURE, UNSPECIFIED Status: Acute - Plan * Hematuria- Patient has undergone retrograde pyelogram, and cystoscopy, without clear indication of the cuase of the hematuria * Continue bladder irrigation as needed * UTI- organism was not identified beyond being a Lactos stopping builder- he seemed to improve after Cipro was added to his antibiotic regimen, he could likely be discharged on Cipro. * Aortic Stenosis- he is s/p recent AVR with Bioprosthetic valve * Will re-check H&H in the AM * Acute renal failure- improving
[2018-06-20] MEDS: Atorvastatin Calcium 10 MG TAB PO SCH (20:57)
[2018-06-20] MEDS: cefTRIAXone\\ROCEPHIN 2 GM in Sodium Chloride 0.9% 100 ML IVPB SCH (20:57)
[2018-06-21 06:27] LABS: #Basophils 0.1 thou/uL (0.0-0.2); #Eosinphils 0.3 thou/uL (0.0-0.7); #Lymphocytes 1.3 thou/uL (1.20-3.40); #Monocytes 0.8 thou/uL (0.11-0.59); #Neutrophils 5.7 thou/uL (1.40-6.50); %Basophils 1.1 % (0.0-1.0); %Eosinophils 3.9 % (0.0-10.0); %Lymphocytes 15.6 % (21.0-51.0); %Monocytes 9.5 % (0.0-10.0); %Neutrophils 69.9 % (42.0-75.0); Hemoglobin 7.7 g/dL (14.0-18.0); Mean Corpuscular HGB CONC 32.4 g/dL (32.0-36.0); Mean Corpuscular Hemoglobin 30.1 pg (27.0-31.0); Mean Corpuscular Volume 92.9 fL (78.0-98.0); Mean Platelet Volume 7.3 fL (7.4-10.4); Platelet Count 393 thou/uL (130-400); RBC Distribution Width 13.7 % (11.5-14.5); Red Blood Cell (RBC) Count 2.54 mill/uL (4.70-6.10); White Blood Cell (WBC) Count 8.2 thou/uL (4.8-10.8)
[2018-06-21 06:41] LABS: Anion Gap 12 mmol/L (10-20); BUN (Urea Nitrogen) 8 mg/dL (8.4-25.7); Calc. Creatinine Clearance 75 mL/min (70-130); Calcium 7.5 mg/dL (7.8-10.44); Carbon Dioxide 20 mmol/L (23-31); Chloride 107 mmol/L (98-107); Estimated GFR-MDRD 80; Glucose 111 mg/dL (83-110); Potassium 3.4 mmol/L (3.5-5.1); Sodium 136 mmol/L (136-145)
--- NOTE | 2018-06-21 08:08 | OP ---
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 PREPROCEDURE DIAGNOSES: 1. Gross hematuria. 2. Left hydroureteronephrosis. 3. Acute blood loss anemia. POSTPROCEDURE DIAGNOSES: 1. Bladder tumor. 2. Left renal collecting system mass. PROCEDURES PERFORMED: 1. Cystoscopy with bilateral retrograde ureteropyelogram. 2. Transurethral resection of bladder tumor, small. 3. Left diagnostic ureteroscopy with biopsy and renal pelvis washings. ANESTHESIA: LMA anesthesia. COMPLICATIONS: None. FLUIDS: See anesthesia record. BLOOD LOSS: 5 mL. SPECIMENS: 1. Bladder tumor. 2. Left renal pelvis biopsy. 3. Left renal pelvis washing for cytology. POSTPROCEDURE STATUS: Satisfactory. INDICATIONS FOR PROCEDURE: Mr. Yoshi Lara is a 72-year-old male, who 3 weeks ago underwent aortic valve replacement. The patient developed significant gross hematuria and left-sided flank pain. He had acute blood loss anemia related to his gross hematuria. He elects to proceed with cystoscopy, clot evacuation, possible diagnostic left ureteroscopy, bilateral retrograde ureteropyelogram, and all indicated procedures. DESCRIPTION OF PROCEDURE: The patient was taken to the operating room and after successful induction of LMA anesthesia, he was placed in dorsal lithotomy position. His genitalia were prepped and draped in usual sterile fashion. A time-out was performed. Following which, a 22-Ghanaian rigid cystoscope with visual obturator was advanced into the patient's urethra and into his bladder. He had bilobar enlargement of the prostate at the trigone in between the ureteral orifices. There was a papillary lesion. It was unclear whether this was a benign papilloma or bladder tumor. We inspected the remainder of the bladder including lateral motta, anterior wall, dome, posterior wall, and there were no other concerning lesions. Ureteral orifices were in normal orthotopic location bilaterally. The right ureteral orifice had clear efflux. Left ureteral orifice had bloody efflux. We switched out to the gyrus resectoscope, inserted with the visual obturator. A bipolar resecting loop was used to resect the bladder lesion. This was sent to pathology as bladder biopsy. Hemostasis was achieved using pinpoint electrocautery. At this point, we switched back to the cystoscope. We performed a left retrograde pyelogram with a cone-tip ureteral catheter and there was mild dilation of the left collecting system, but no significant left hydronephrosis. There appeared to be a filling defect in the upper pole collecting system including the infundibulum of the upper pole system. We performed a right retrograde ureteropyelogram, and there was no hydroureteronephrosis, filling defects, or other concerning lesions present. At this point, we would like to perform diagnostic ureteroscopy. We advanced a Sensor wire up the left ureter and curled within the left renal pelvis. The bladder was drained, and cystoscope was removed. We took the inner portion of an 11/13-Ghanaian ureteral access sheath and dilated the ureter up to the left ureteropelvic junction. This was passed with ease. We then over the Sensor wire placed the ureteroscope and advanced it easily over the wire all the way up into the left renal collecting system. There was a significant amount of hematuria presently inspected all calyces. There appeared to be a large amount of clot with possible underlying mass in the upper pole system extending down to the proximal renal pelvis from the infundibulum. At this point, we placed a wire curled within the left renal pelvis and removed the ureteroscope. We placed the access sheath up to the left ureteropelvic junction and then performed pyeloscopy through the access sheath. We inspected all other calyces. There were no other concerning lesions. Of note, we obtained a Zero Tip basket and removed some of the blood clot. There also appeared to be some pieces of tissue associated with this. There appeared to be some papillary tumor from the left upper pole collecting system, although, visualization was very difficult and it was hard to tell. We continued to take specimens with the Zero Tip Nitinol basket, and all of these specimens were sent to Pathology as left renal pelvis biopsies. At this point, we obtained a syringe and through the ureteroscope, took washings from this area and this was sent for cytology. There was no significant brisk bleeding present. We removed the ureteral access sheath and ureteroscope as 1 unit and inspected the ureter as we did so there was no damage to the ureter. We did not leave a ureteral stent. The patient's bladder was then irrigated. We confirmed hemostasis within the bladder. The cystoscope was removed. We placed a 20-Ghanaian three-way Shipman catheter in place, 15 mL of sterile water in the balloon. This was manually irrigated at the end of the case and was completely clear. This was placed to gravity drainage. We did not start CBI. This will be restarted as necessary. The patient tolerated procedure well, was awoken from anesthesia and transferred to the PACU in satisfactory condition. Job ID: [id number]
[2018-06-21] MEDS: Amiodarone 200 MG TAB PO SCH (09:03)
[2018-06-21] MEDS: Aspirin 81 mg Enteric Coated Tablet PO SCH (09:03)
[2018-06-21] MEDS: Losartan 25 MG TAB PO SCH (09:03)
[2018-06-21] MEDS: Sodium Chloride 0.9% 1,000 ML IV SCH (12:15)
--- NOTE | 2018-06-21 14:24 | PDOC.PN ---
- Subjective Encounter Start Date: 06/21/18 Encounter Start Time: 14:22 Subjective: feels well. mild blood in urine but no Abd pain/dysuria/fever/ dizziness - Objective MAR Reviewed: Yes Vital Signs & Weight: Vital Signs (12 hours) Temp Pulse Resp BP Pulse Ox 06/21/18 11:09 97.6 F 63 16 109/55 L 96 06/21/18 07:48 97.3 F L 73 16 122/58 L 95 06/21/18 03:41 98.1 F 62 16 140/63 95 Weight Weight 163 lb 6.4 oz I&O: 06/20/18 06/21/18 06/22/18 06:59 06:59 06:59 Intake Total 2670 2120 480 Output Total 2300 2650 Balance 370 -530 480 Result Diagrams: 06/21/18 05:42 06/21/18 05:42 Additional Labs: Microbiology 06/15/18 19:36 Venous blood - Right Hand Blood Culture - Final NO GROWTH IN 5 DAYS 06/15/18 19:36 Venous blood - Right Arm Blood Culture - Final NO GROWTH IN 5 DAYS 06/15/18 19:00 Urine clean catch Urine Culture - 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 [employer] Laboratory Tests 06/15/18 06/15/18 06/15/18 18:50 18:50 21:44 WBC 21.0 H Hgb 10.2 L Creatinine 1.30 1.35 H 06/16/18 06/17/18 06/17/18 02:00 05:34 05:34 WBC 22.3 H 13.6 H Hgb 9.8 L Creatinine 1.78 H 06/18/18 06/18/18 06/19/18 04:35 04:35 04:06 WBC 13.1 H Hgb 8.2 L Creatinine 1.63 H 1.31 H 06/19/18 06/21/18 06/21/18 04:06 05:42 05:42 WBC 9.4 8.2 Hgb 7.9 L 7.7 L Creatinine 0.93 Phys Exam - Physical Examination Constitutional: NAD HEENT: PERRLA, moist MMs, sclera anicteric, oral pharynx no lesions Neck: no nodes, no JVD, supple, full ROM Respiratory: no wheezing, no rales, no rhonchi, clear to auscultation bilateral Cardiovascular: RRR, no significant murmur, no rub Gastrointestinal: soft, non-tender, no distention, positive bowel sounds maldonado w slight bloddy urine in bag Musculoskeletal: no edema, pulses present Neurological: non-focal, normal sensation, moves all 4 limbs Psychiatric: normal affect, A&O x 3 Skin: no rash Dx/Plan (1) UTI (urinary tract infection) Status: Acute (2) Hematuria Code(s): R31.9 - HEMATURIA, UNSPECIFIED Status: Acute Comment: s/p cystoscopy 06/20/18 and resection of small bladder tumor.Path pending (3) Acute kidney injury Code(s): N17.9 - ACUTE KIDNEY FAILURE, UNSPECIFIED Status: Acute Comment: improved (4) Hydronephrosis, left Code(s): N13.30 - UNSPECIFIED HYDRONEPHROSIS Status: Acute (5) S/P aortic valve replacement with bioprosthetic valve Code(s): Z95.3 - PRESENCE OF XENOGENIC HEART VALVE Status: Acute Comment: 2018 (6) COPD (chronic obstructive pulmonary disease) Status: Chronic (7) Hypertension Code(s): I10 - ESSENTIAL (PRIMARY) HYPERTENSION Status: Chronic (8) Hypothyroidism Code(s): E03.9 - HYPOTHYROIDISM, UNSPECIFIED Status: Chronic (9) Vasculopathy Code(s): I99.9 - UNSPECIFIED DISORDER OF CIRCULATORY SYSTEM Status: Acute (10) Vertebral artery stenosis Code(s): I65.09 - OCCLUSION AND STENOSIS OF UNSPECIFIED VERTEBRAL ARTERY Status: Acute Qualifiers: Laterality: left Qualified Code(s): I65.02 - Occlusion and stenosis of left vertebral artery Comment: on statin (11) AVM (arteriovenous malformation) brain Code(s): Q28.2 - ARTERIOVENOUS MALFORMATION OF CEREBRAL VESSELS Status: Chronic Comment: inoperable (12) Atrial fibrillation Code(s): I48.91 - UNSPECIFIED ATRIAL FIBRILLATION Status: Resolved Comment: on amiodarone. NSR now - Plan plan discussed w/ family, continue antibiotics, PT/OT, respiratory therapy, incentive spirometry, out of bed/ambulate, DVT proph w/SCDs HD stable. -: replace and recheck potassium -: arrange HH. -: DC when OK w Urology.may need Maldonado to go with.Renal Fx back to NL.monitor -: taper amiodarone .NS.BP lower side * . Review of Systems - Review of Systems Constitutional: weakness. negative: fever, chills, sweats, malaise, other ENT: negative: Ear Pain, Ear Discharge, Nose Pain, Nose Discharge, Nose Congestion, Mouth Pain, Mouth Swelling, Throat Pain, Throat Swelling, Other Respiratory: negative: Cough, Dry, Shortness of Breath, Hemoptysis, SOB with Excertion, Pleuritic Pain, Sputum, Wheezing Cardiovascular: negative: chest pain, palpitations, orthopnea, paroxysmal nocturnal dyspnea, edema, light headedness, other Gastrointestinal: negative: Nausea, Vomiting, Abdominal Pain, Diarrhea, Constipation, Melena, Hematochezia, Other Genitourinary: negative: Dysuria, Frequency, Incontinence, Hematuria, Retention , Other Musculoskeletal: negative: Neck Pain, Shoulder Pain, Arm Pain, Back Pain, Hand Pain, Leg Pain, Foot Pain, Other Skin: negative: Rash, Lesions, Claus, Bruising, Other Neurological: negative: Weakness, Numbness, Incoordination, Change in Speech, Confusion, Seizures, Other - Medications/Allergies Allergies/Adverse Reactions: Allergies Allergy/AdvReac Type Severity Reaction Status Date / Time No Known Allergies Allergy Verified 05/26/18 23:30 Medications: Current Medications Acetaminophen (Tylenol) 650 mg PO Q4H PRN PRN Reason: .FEVER Last Admin: 06/17/18 18:42 Dose: 650 mg Amiodarone HCl (Cordarone) 400 mg PO BID [facility] Last Admin: 06/21/18 09:03 Dose: 400 mg Aspirin (Ecotrin) 81 mg PO DAILY [facility] Last Admin: 06/21/18 09:03 Dose: 81 mg Atorvastatin Calcium (Lipitor) 10 mg PO HS [facility] Last Admin: 06/20/18 20:57 Dose: 10 mg Ceftriaxone Sodium 2 gm/ (Sodium Chloride) 100 mls @ 200 mls/hr IVPB Q24HR [facility] Last Admin: 06/20/18 20:57 Dose: 100 mls Sodium Chloride (Normal Saline 0.9%) 1,000 mls @ 75 mls/hr IV .[id number] [facility] Last Admin: 06/21/18 12:15 Dose: Not Given Levofloxacin (Levaquin) 500 mg PO 1500 [facility] Last Admin: 06/20/18 14:58 Dose: 500 mg Losartan Potassium (Cozaar) 50 mg PO DAILY [facility] Last Admin: 06/21/18 09:03 Dose: 50 mg Metoprolol Succinate (Toprol Xl) 25 mg PO DAILY [facility] Last Admin: 06/21/18 09:03 Dose: 25 mg Sodium Chloride (Flush - Normal Saline) 10 ml IVF Q12HR [facility] Last Admin: 06/21/18 09:03 Dose: Not Given Sodium Chloride (Flush - Normal Saline) 10 ml IVF PRN PRN PRN Reason: Saline Flush Tramadol HCl (Ultram) 50 mg PO Q6H PRN PRN Reason: Pain
[2018-06-21] MEDS ORDERED: Potassium Chloride 40 MEQ in Premix Bag 1 BAG IVPB SCH (14:30)
[2018-06-21] MEDS ORDERED: Potassium Chloride 20 MEQ TAB PO SCH (15:45)
[2018-06-21 16:00] VITALS: BP 118/58; TEMP 97.3
[2018-06-21] MEDS ORDERED: Amiodarone 200 MG TAB PO SCH (21:00)
--- NOTE | 2018-06-22 08:04 | DIS ---
DATE OF ADMISSION: 06/20/2018 DATE OF DISCHARGE: 06/21/2018 CONDITION AT THE TIME OF DISCHARGE: Stable and improved. PRIMARY CARE PHYSICIAN: [facility]. DISCHARGE DIAGNOSES: 1. Urinary tract infection. 2. Hematuria of unclear etiology. 3. Left hydronephrosis. 4. Acute kidney insufficiency, improved. 5. Recent aortic valve replacement with bioprosthetic valve. 6. History of chronic obstructive pulmonary disease. 7. Hypertension. 8. Peripheral vascular disease. 9. Hypothyroidism. 10. History of vertebral artery stenosis. 11. History of arteriovenous malformation of the brain. 12. History of atrial fibrillation, currently sinus rhythm. DISCHARGE MEDICATIONS: 1. Amiodarone dose has been tapered to 200 mg p.o. b.i.d. from 400 mg p.o. b.i.d. 2. Dr. Zeferino Yates has changed his metoprolol tartrate twice a day to metoprolol succinate 25 mg daily. New medication: Levofloxacin 500 mg p.o. daily for 7 more days. Resumed home medications: 1. Lipitor 10 mg daily. 2. Aspirin 325 mg daily. 3. Cozaar 50 mg daily. PROCEDURES DONE IN THE HOSPITAL: 1. Renal ultrasound upon presentation, which shows left-sided hydronephrosis with possible complex infected urine in the left intrarenal collecting system. 2. CT scan of the abdomen and pelvis, which once again shows moderate left hydronephrosis with increased density material in the left renal collecting system and ureter suggestive of hemorrhage with perinephric and periureteral inflammatory stranding. Gallbladder sludge versus gallbladder calculi was also seen. 3. Cystoscopy with intraoperative retrograde pyelogram on 06/20/[address] Garcia. He underwent transurethral resection of a small bladder tumor with left diagnostic ureteroscopy with biopsy and renal pelvic washing. IN-HOUSE CONSULTATION: 1. Urology, Dr. Garcia. 2. Cardiovascular Surgery, Dr. Yates. HISTORY OF PRESENTING ILLNESS: Mr. Belle is a pleasant 72-year-old male with known history of aortic stenosis, status post valve replacement, June 02, 2018, who presented to the emergency room with complaints of hematuria. He was hemodynamically stable and H and H was stable. His valve replacement was complicated by postop atrial fibrillation and he was discharged home on amiodarone. No anticoagulation was started at that time as he had spontaneously converted to sinus rhythm. This time, upon presentation, he was found to have a urinary tract infection, mild renal insufficiency with creatinine of 1.3. Please see admission history and physical. HOSPITAL COURSE: Renal ultrasound was done which was concerning for left hydroureteronephrosis, so a CT scan was done, which confirmed the findings. Along with hematuria and these findings, Urology was consulted and Dr. Garcia saw the patient. He recommended a cystoscopy, which was done with continuous bladder irrigation. Retrograde pyelogram was done intraoperatively as well. He was cleared for discharge home with Shipman catheter earlier this morning by Urology for outpatient followup. Dr. Yates saw the patient in the hospital due to his recent aortic valve replacement status. He adjusted his antibiotics as well. 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 Blood cultures are negative x2. His metoprolol tartrate has been changed to metoprolol succinate and he was given the prescription of the same. Potassium was found to be slightly low and was replaced prior to discharge. He was seen and examined prior to discharge and all questions were answered with the help of an mold maker apprentice. DISCHARGE PLAN: Discharge plan was discussed with the patient and his , who verbalized understanding. Home health has already been arranged for them during their last hospitalization which they will resume. The patient has been walking in the hallways with a walking program in the hospital. Please see hospitalist progress note from today's date for further details including [id number] interaction. TIME SPENT: Total time spent in discharge of this patient 32 minutes. Job ID: [id number]
== END 2018-06-21 16:29 | disposition home or self-care (01) | DRG 668 ==
LOC: ERS 17:55 → 2SW 21:07 → OBSVTOIN 06-20 17:25
PROVIDERS: ADMIT Hospitalist; ATTEND Hospitalist
PROC: 0TBB8ZZ Excision of Bladder, Via Natural or Artificial Opening Endoscopic (ICD-10-PCS; principal; 2018-06-20)
PROC: BT141ZZ Fluoroscopy of Kidneys, Ureters and Bladder using Low Osmolar Contrast (ICD-10-PCS; 2018-06-20)
PROC: 0TB48ZX Excision of Left Kidney Pelvis, Via Natural or Artificial Opening Endoscopic, Diagnostic (ICD-10-PCS; 2018-06-20)
PROC: 0T948ZX Drainage of Left Kidney Pelvis, Via Natural or Artificial Opening Endoscopic, Diagnostic (ICD-10-PCS; 2018-06-20)
DX: N13.6 Pyonephrosis (principal); I21.A1 Myocardial infarction type 2; Q28.2 Arteriovenous malformation of cerebral vessels; D62 Acute posthemorrhagic anemia; N39.0 Urinary tract infection, site not specified; N17.9 Acute kidney failure, unspecified; D49.4 Neoplasm of unspecified behavior of bladder; R31.0 Gross hematuria; J44.9 Chronic obstructive pulmonary disease, unspecified; E78.5 Hyperlipidemia, unspecified; I48.91 Unspecified atrial fibrillation; I10 Essential (primary) hypertension; I65.02 Occlusion and stenosis of left vertebral artery; Z95.2 Presence of prosthetic heart valve; Z87.891 Personal history of nicotine dependence; I73.9 Peripheral vascular disease, unspecified; E03.9 Hypothyroidism, unspecified; Z79.899 Other long term (current) drug therapy; Z79.82 Long term (current) use of aspirin
CPT/HCPCS: 36415; 71045; 74178; 74420; 76770; 80048; 80053; 81003; 81015; 82553; 82570; 83605; 83690; 84300; 84484; 85025; 87040; 87086; 88108; 88112; 88305; 88342; 93005; 96374; 96375; C1758; C1769; J0696; J1956; J2001; J2270; J2704; J3010; J3490; J7050; Q0162; Q9961; Q9967

== ENCOUNTER 2018-07-01 16:41 | Emergency (ER) | payer MEDICAID, SELFPAY ==
[2018-07-01 18:45] LABS: Bilirubin Negative (Negative); Blood, Urine Large (Negative); Clarity CLOUDY (Clear); Glucose, Urine (Dipstick) Negative (Negative); Leukocyte Small (Negative); Nitrite Negative (Negative); Protein, Urine (Dipstick) 300 mg/dL (Neg-Trace); Specific Gravity, Urine 1.019 (1.002-1.036)
[2018-07-01 18:48] LABS: Bacteria/HPF None Seen HPF (None Seen); Hyaline Casts/LPF 0-3 HYALINE CAST LPF (0-3 Hyaline); RBC/HPF GREATER THAN 50-TNTC HPF (0-3); Squamous Epithelial 0-3 HPF (0-3); WBC/HPF 0-3 HPF (0-3)
[2018-07-01 19:08] LABS: #Basophils 0.2 thou/uL (0.0-0.2); #Eosinphils 0.5 thou/uL (0.0-0.7); #Lymphocytes 1.6 thou/uL (1.20-3.40); #Monocytes 0.9 thou/uL (0.11-0.59); #Neutrophils 7.6 thou/uL (1.40-6.50); %Basophils 1.6 % (0.0-1.0); %Eosinophils 4.6 % (0.0-10.0); %Lymphocytes 14.7 % (21.0-51.0); %Monocytes 8.6 % (0.0-10.0); %Neutrophils 70.6 % (42.0-75.0); Hemoglobin 7.1 g/dL (14.0-18.0); Mean Corpuscular HGB CONC 32.1 g/dL (32.0-36.0); Mean Corpuscular Hemoglobin 28.6 pg (27.0-31.0); Mean Corpuscular Volume 89.2 fL (78.0-98.0); Mean Platelet Volume 7.3 fL (7.4-10.4); Platelet Count 359 thou/uL (130-400); RBC Distribution Width 15.3 % (11.5-14.5); Red Blood Cell (RBC) Count 2.47 mill/uL (4.70-6.10); White Blood Cell (WBC) Count 10.7 thou/uL (4.8-10.8)
[2018-07-01 19:30] LABS: ALT (SGPT) 16 U/L (8-55); AST (SGOT) 20 U/L (5-34); Albumin 3.6 g/dL (3.4-4.8); Alkaline Phosphatase 111 U/L (40-150); Anion Gap 13 mmol/L (10-20); BUN (Urea Nitrogen) 16 mg/dL (8.4-25.7); Bilirubin, Total 0.4 mg/dL (0.2-1.2); Calc. Creatinine Clearance 0 mL/min (70-130); Calcium 8.7 mg/dL (7.8-10.44); Carbon Dioxide 21 mmol/L (23-31); Chloride 107 mmol/L (98-107); Estimated GFR-MDRD 42; Glucose 113 mg/dL (83-110); Potassium 4.4 mmol/L (3.5-5.1); Protein, Total 6.6 g/dL (5.8-8.1); Sodium 137 mmol/L (136-145)
== END 2018-07-01 20:25 | disposition home or self-care (01) ==
LOC: ERS 16:41
DX: T83.098A Other mechanical complication of other urinary catheter, initial encounter (principal); R31.9 Hematuria, unspecified; I10 Essential (primary) hypertension; Z87.891 Personal history of nicotine dependence; Z79.82 Long term (current) use of aspirin; Z79.899 Other long term (current) drug therapy
CPT/HCPCS: 36415; 80053; 81003; 81015; 85025; 87086; 99283

== ENCOUNTER 2018-07-06 07:19 | Inpatient (IN) | payer MEDICAID, SELFPAY ==
[2018-07-06 08:37] LABS: Blood, Urine Large (Negative); Glucose, Urine (Dipstick) Negative (Negative); Leukocyte Moderate (Negative); Protein, Urine (Dipstick) 100 mg/dL (Neg-Trace); Specific Gravity, Urine 1.015 (1.005-1.030); pH, Urine 7.5 (5.0-9.0)
[2018-07-06 08:47] LABS: Clarity Cloudy (Clear)
[2018-07-06 08:49] LABS: Hemoglobin 6.7 g/dL (14.0-18.0); Mean Corpuscular HGB CONC 30.5 g/dL (32.0-36.0); Mean Corpuscular Hemoglobin 26.2 pg (27.0-31.0); Mean Platelet Volume 6.7 fL (7.4-10.4); Platelet Count 428 thou/uL (130-400); RBC Distribution Width 16.5 % (11.5-14.5); Red Blood Cell (RBC) Count 2.54 mill/uL (4.70-6.10); White Blood Cell (WBC) Count 8.7 thou/uL (4.8-10.8)
[2018-07-06 08:50] LABS: #Basophils 0.1 thou/uL (0.0-0.2); #Eosinphils 0.2 thou/uL (0.0-0.7); #Lymphocytes 1.4 thou/uL (1.20-3.40); #Monocytes 0.7 thou/uL (0.11-0.59); #Neutrophils 6.4 thou/uL (1.40-6.50); %Basophils 0.8 % (0.0-1.0); %Eosinophils 2.2 % (0.0-10.0); %Lymphocytes 15.8 % (21.0-51.0); %Monocytes 8.1 % (0.0-10.0); %Neutrophils 73.2 % (42.0-75.0)
[2018-07-06 08:53] LABS: Nitrite Unable to Interpret (Negative)
[2018-07-06 08:55] LABS: Bilirubin Unable to Interpret (Negative); Urobilinogen UNABLE TO INTERPRET mg/dL (0.2-1.0)
[2018-07-06 08:56] LABS: Bacteria/HPF Rare-Few HPF (None Seen); RBC/HPF GREATER THAN 50-TNTC HPF (0-3); Squamous Epithelial 0-3 HPF (0-3)
[2018-07-06 08:57] LABS: Yeast-All Forms None Seen HPF (None Seen)
[2018-07-06 09:12] LABS: ALT (SGPT) 10 U/L (8-55); AST (SGOT) 16 U/L (5-34); Albumin 3.7 g/dL (3.4-4.8); Alkaline Phosphatase 125 U/L (40-150); Anion Gap 14 mmol/L (10-20); BUN (Urea Nitrogen) 15 mg/dL (8.4-25.7); Bilirubin, Total 0.6 mg/dL (0.2-1.2); Calc. Creatinine Clearance 0 mL/min (70-130); Calcium 9.2 mg/dL (7.8-10.44); Carbon Dioxide 21 mmol/L (23-31); Chloride 105 mmol/L (98-107); Estimated GFR-MDRD 38; Globulin 3.2 g/dL (2.4-3.5); Glucose 105 mg/dL (83-110); Potassium 5.2 mmol/L (3.5-5.1); Protein, Total 6.9 g/dL (5.8-8.1); Sodium 135 mmol/L (136-145)
[2018-07-06 09:13] LABS: Hypochromia MODERATE=16-30 cells (100X) (0-5/hpf); MDiff Complete? YES; Platelet Morphology Comment Appears Increased; Polychromasia MODERATE = 3-4 cells (100X) (0-2/hpf); Reflex for Review?? NO
--- NOTE | 2018-07-06 10:05 | ULT ---
ULTRASOUND RETROPERITONEUM COMPLETE: (RENAL) DATE: 07/06/18 HISTORY: 72-year-old male with hematuria. COMPARISON: Ultrasound of 06/16/18. FINDINGS: Right kidney measures 11 x 5 x 5 cm. Left kidney measures 12.0 x 7 x 7 cm. No right-sided hydronephrosis. Severe dilation of left mid and lower pole calices and renal pelvis, somewhat worse than on 06/16/18. Previously, there was intermediate echogenicity material filling the dilated renal collecting system . Now, the severely dilated renal calices are clear. However, there is a new finding of an approximately 3 x 2.5 cm intermediate echogenicity lobulated ma ss at the left renal pelvis. Given the lack of any neoplasm identified on the CT of 06/16/18, this ma ss probably represents an organized blood clot or sloughed papilla, rather than neoplasm. There is a new finding of a Shipman catheter within the urinary bladder, which is nearly empty now. IMPRESSION: 1. Interval worsening of severe left hydronephrosis. 2. The previously demonstrated material filling the dilated left renal collecting system on 06/16/18 has now organized itself into a mass, further obstructing the left renal pelvis. This is probably a thrombus (intraluminal hematoma). The other less likely possibility is sloughed papillae. JOJO Woody POS: [facility]
--- NOTE | 2018-07-06 10:21 | CT ---
CTA OF THE ABDOMEN WITH CONTRAST: Comparison: 06-16-18 History: Hematuria and back pain. Patient had recent aortic valve replacement. Evaluate for aneurysm. Comparison: Multiple contiguous axial images were obtained in a CTA of the abdomen with contrast. Cor onal reformats were performed. FINDINGS: Moderate to severe left hydronephrosis is again seen. High density material in the proximal left uret er and renal pelvis likely represents blood. When compared to the prior examination, the caliceal dil atation has worsened. There is a delay in the left nephrogram compared to the right. No right renal a bnormality is seen. Hyperdensities in the gallbladder may represent gallstones. The liver, adrenal glands, spleen, and pa ncreas are unremarkable. The visualized large and small bowel are unremarkable. The appendix is unremarkable. No abdominal enrike nopathy is seen. Atherosclerotic calcifications are seen in the aorta. The aorta is normal in caliber without evidence of aneurysmal dilatation of dissection. The celiac trunk, SMA, and ROGER are patent. There is a single renal artery on the left and two renal arteries are seen on the right. No significant atheroscleroti c disease is seen in the renal arteries. No aneurysm of the renal arteries is seen. Degenerative changes are seen in the spine. Atelectasis is seen in the lung bases. The visualized em st wall soft tissues are unremarkable. IMPRESSION: 1. Moderate to severe worsening left hydronephrosis secondary to blood clot in the proximal ureter. 2. No evidence of abdominal aortic aneurysm or aneurysm of the aortic branch vessels. POS: [facility]
[2018-07-06] MEDS ORDERED: Ondansetron PF 4 MG/2 ML Vial IVP PRN (12:46)
[2018-07-06] MEDS ORDERED: Ondansetron ODT 4 MG TAB SL PRN (12:46)
[2018-07-06 12:51] VITALS: BMI 25.6
[2018-07-06] MEDS ORDERED: Guaifenesin DM 100-10/5 ML UDCUP PO PRN (12:53)
[2018-07-06] MEDS ORDERED: Senokot S 8.6-50 MG TAB PO PRN (12:53)
--- NOTE | 2018-07-06 14:19 | HP ---
REASON FOR ADMISSION: Hematuria, moderate to severe worsening of left hydronephrosis secondary to blood clot in the proximal ureter, and acute blood loss anemia. HISTORY OF PRESENTING ILLNESS: The patient gives history of having left flank pain from yesterday. He has also had bleeding in his Shipman catheter from last 2 weeks, which has been progressively getting worse per patient. He had seen Dr. Garcia 2 weeks back during his last hospitalization here. The flank pain is 4 to 5/10 in intensity and is a dragging pain. Please note, the patient is [place]-speaking only and the [place] [employer] was used to communicate with the patient. No complaints of chest pain, shortness of breath, palpitation, PND, or orthopnea. He ambulates by himself. He has had aortic bioprosthetic valve placed on the 02 of June this year. The patient states he has not followed up with Dr. Garcia in the outpatient setting. PAST MEDICAL AND SURGICAL HISTORY: History of bioprosthetic aortic valve placed on 06/02/[address] Yates. He has had a cystoscopy for gross hematuria done on 06/20/[address] Garcia. He had transurethral resection of bladder tumor, which was small during the same setting. 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 Hypertension. Dyslipidemia. CURRENT MEDICATIONS: He takes; 1. Losartan 50 mg daily. 2. Aspirin 81 mg daily. 3. Atorvastatin 10 mg daily. 4. Toprol-XL 25 mg daily. 5. Amiodarone 200 mg twice daily. ALLERGIES: NO KNOWN DRUG ALLERGIES. PERSONAL HISTORY: Quit smoking and drinking alcohol prior to his aortic valve replacement in May. Does not abuse drugs. Lives with his . FAMILY HISTORY: Mother when he was 6 years old from unknown cause. Father of motor vehicle accident at the age of 50 years. 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 REVIEW OF SYSTEMS: CONSTITUTIONAL: Negative for weight loss or gain, ability to conduct usual activities. SKIN: Negative for rash, itching. EYES: Negative for double vision, pain. ENT/MOUTH: Negative for nose bleeding, neck stiffness, pain, tenderness. CARDIOVASCULAR: Negative for palpitations, dyspnea on exertion, orthopnea. RESPIRATORY: Negative for shortness of breath, wheezing, cough, hemoptysis, fever or night sweats. GASTROINTESTINAL: Negative for poor appetite, abdominal pain, heartburn, nausea, vomiting, constipation, or diarrhea. GENITOURINARY: Negative for urgency, frequency, dysuria, nocturia. MUSCULOSKELETAL: Negative for pain, swelling. NEUROLOGIC/PSYCHIATRIC: Negative for anxiety, depression. ALLERGY/IMMUNOLOGIC: Negative for skin rash, bleeding tendency. PHYSICAL EXAMINATION: GENERAL: The patient is a 72-year-old male who is currently not in any acute distress. VITAL SIGNS: Blood pressure 150/70, pulse 62 per minute, respiratory rate 16 per minute, temperature 98.4 degrees Fahrenheit, and saturating 98% on room air. NECK: Supple. No elevated JVD. HEENT: Eyes: Extraocular muscles intact. Pupils reacting to light. Oral cavity: Mucous membranes are moist. No exudates or congestion. CARDIOVASCULAR: S1 and S2 heard. Murmur plus, regular rhythm. RESPIRATORY: Air entry 1+ bilaterally. No rales or rhonchi. ABDOMEN: Soft. Bowel sounds heard. There is tenderness in the left CVA angle. No rigidity or guarding. Bowel sounds are heard. EXTREMITIES: No peripheral edema or calf tenderness. VASCULAR: Peripheral pulses 1+ bilaterally. No ischemic ulcerations or gangrene. CENTRAL NERVOUS SYSTEM: No gross focal deficits noted. The patient is alert, awake, and oriented well. PSYCHIATRIC: The patient's mood is euthymic. No hallucinations or delusions. LABORATORY DATA: White count of 8, H and H 6.7 and 21.8, platelet count 428, MCV is 86 with 73% neutrophils. Potassium 5.2, serum bicarb 21, BUN 15, creatinine 1.7, and serum glucose 105. Liver enzymes within normal limits. Albumin is 3.7. UA shows large blood with greater than 50 rbc's, moderate leukocyte esterase. CT of the abdomen and pelvis done shows moderate to severe worsening left hydronephrosis secondary to blood clot in the proximal ureter. Please note, this is a CT angio of the abdomen with contrast done per Dr. Garcia's advice by ER resident. CLINICAL IMPRESSION AND PLAN: The patient will be admitted. The patient will be placed under observation on medical floor for hematuria with worsening left hydronephrosis with blood clot in the proximal ureter. Dr. Garcia has been consulted from ER. He will be on clear liquid diet for now. The patient has creatinine of 1.7 and has had contrast. We will gently hydrate him with normal saline at 60 to 70 mL/h. We will continue his amiodarone, atorvastatin, and Toprol-XL for now. No aspirin. He will be getting 1 unit of packed cells for his hemoglobin of 6.7. We will await Dr. Garcia's advice and opinion when he sees the patient. Job ID: [id number]
[2018-07-06] MEDS: Sodium Chloride 0.9% 1,000 ML IV SCH (14:50)
[2018-07-06] MEDS ORDERED: ISOVUE-370 76%-LOCM 1 ML ONE (16:24)
[2018-07-06] MEDS: Acetaminophen 325 MG TAB PO PRN (17:02)
[2018-07-06] MEDS: Famotidine 20 MG TAB PO SCH (21:42)
[2018-07-06] MEDS: Amiodarone 200 MG TAB PO SCH (21:42)
[2018-07-07 05:18] LABS: #Basophils 0.1 thou/uL (0.0-0.2); #Eosinphils 0.2 thou/uL (0.0-0.7); #Lymphocytes 1.4 thou/uL (1.20-3.40); #Monocytes 0.9 thou/uL (0.11-0.59); %Basophils 1.5 % (0.0-1.0); %Eosinophils 2.3 % (0.0-10.0); %Lymphocytes 14.2 % (21.0-51.0); %Monocytes 9.2 % (0.0-10.0); %Neutrophils 72.7 % (42.0-75.0); Hemoglobin 9.6 g/dL (14.0-18.0); Mean Corpuscular HGB CONC 32.4 g/dL (32.0-36.0); Mean Corpuscular Hemoglobin 28.7 pg (27.0-31.0); Mean Corpuscular Volume 88.4 fL (78.0-98.0); Mean Platelet Volume 7.3 fL (7.4-10.4); Platelet Count 407 thou/uL (130-400); RBC Distribution Width 16.2 % (11.5-14.5); Red Blood Cell (RBC) Count 3.36 mill/uL (4.70-6.10); White Blood Cell (WBC) Count 9.6 thou/uL (4.8-10.8)
[2018-07-07 05:42] LABS: Anion Gap 13 mmol/L (10-20); BUN (Urea Nitrogen) 13 mg/dL (8.4-25.7); Calc. Creatinine Clearance 44 mL/min (70-130); Calcium 9.1 mg/dL (7.8-10.44); Carbon Dioxide 20 mmol/L (23-31); Chloride 102 mmol/L (98-107); Estimated GFR-MDRD 48; Glucose 100 mg/dL (83-110); Sodium 130 mmol/L (136-145)
--- NOTE | 2018-07-07 07:21 | CON ---
DATE OF CONSULTATION: 07/07/2018 REASON FOR CONSULTATION: Gross hematuria and left hydronephrosis. HISTORY OF PRESENT ILLNESS: Mr. Yoshi Lara is a 72-year-old male, well known to me. He underwent an aortic valve replacement on June 02, 2018. Two weeks later, he developed significant gross hematuria and was seen as an inpatient consultation on June 17, 2018, and the patient subsequently underwent transurethral resection of a papillary bladder lesion on June 20 as well as bilateral retrograde ureteral pyelograms and left diagnostic ureteroscopy with biopsy and washings. All of these results were negative for malignancy. There was only reactive urothelium present. Cytology was negative for malignant cells. The patient has had persistent gross hematuria since then. He has presented back to the [facility] Emergency Department on one or two occasions as well as has seen me as an outpatient 2 different times. His hemoglobin has slowly drifted down and the most recent presentation to the emergency department was 6.7. He was having left flank pain and dizziness at that time, and therefore was admitted. The patient was transfused 2 units of packed red blood cells with an appropriate response of his hemoglobin most recently up to 9.6. The patient continues to have some dark gross hematuria from his Shipman catheter, but no longer has any flank pain. He has no dizziness. His vital signs have been stable. A CT angiogram was performed yesterday and this was negative for any AV malformation or pseudoaneurysm, and did not identify an exact source of bleeding. There was persistent left hydroureteronephrosis with high-density material within the entire collecting system, likely consistent with a blood clot. REVIEW OF SYSTEMS: Full 12-point review of systems was performed and is negative other than that mentioned in the HPI. For past medical history, past surgical history, family history, social history, please see dictated consultation note on 06/20/2018 and this was reviewed. There are no changes. ALLERGIES: NO KNOWN DRUG ALLERGIES. PHYSICAL EXAMINATION: VITAL SIGNS: Temperature 98.4, pulse 63, respirations 16, oxygen saturation 97% on room air, blood pressure 148/67. GENERAL: He is awake and alert, no apparent distress. HEENT: Normocephalic, atraumatic. NECK: Supple. No masses or lymphadenopathy. CARDIOVASCULAR: Regular rate and rhythm. PULMONARY: Breathing unlabored. No wheezing. ABDOMEN: Soft, nontender/nondistended. No masses or organomegaly. No suprapubic tenderness to palpation. No CVA tenderness. GENITOURINARY: Normal penis and scrotum. Shipman catheter in place draining dark red urine without clot. EXTREMITIES: Warm and well perfused. No edema. NEUROLOGIC: No focal deficits. LABORATORY DATA: At admission, hemoglobin was 6.7 and hematocrit was 21.8. After 2 units of packed red blood cells, hemoglobin this morning 9.6 and hematocrit 29.7. BUN at admission was 15 and creatinine 1.78. BUN currently is 13 and creatinine 1.45. ASSESSMENT: A 72-year-old male with gross hematuria lateralizing to the left kidney and left hydroureteronephrosis. PLAN: The etiology of the patient's hematuria remains unclear on diagnostic ureteroscopy. There was a large amount of clot and what appeared to be a mass within the collecting system, although on biopsy, this appeared to just be reactive urothelium as well as a large amount of blood clot. There was no identified source on his angiogram for bleeding. At this point, his urine has an appearance of "old blood." The drainage is not bright red, which would indicate an ongoing brisk venous bleed or possible arterial source. The patient is hemodynamically stable, although from his last admission, he did have significant drop in his H and H, requiring additional transfusion. At the patient's initial admission, he was transfused at least 2 units of packed red blood cells in early June. I have discussed this case with the radiologist. I have discussed the CT angiogram as well as his prior imaging. They have not identified any potential source for bleeding as well. If the bleeding persists, I can discuss this with interventional Radiology at which point they could potentially perform angiography with potential embolization, if a source of bleeding is identified. If the bleeding persists, nephrectomy could be performed as well, although in the absence of a mass or identifiable source, this may be detrimental to the patient's renal function given what appears to be a normally functioning kidney otherwise. Urology will follow. Job ID: [id number]
[2018-07-07] MEDS: Sodium Chloride 0.9% 1,000 ML IV SCH (08:06)
[2018-07-07] MEDS: Famotidine 20 MG TAB PO SCH ×2 (08:07→21:28)
[2018-07-07] MEDS: Atorvastatin Calcium 10 MG TAB PO SCH (08:07)
[2018-07-07] MEDS: Amiodarone 200 MG TAB PO SCH ×2 (08:07→21:28)
--- NOTE | 2018-07-07 13:40 | PDOC.PN ---
- Subjective Encounter Start Date: 07/07/18 Encounter Start Time: 09:10 Subjective: abd pain is better, no nausea -: is amb in room, at bedside - Objective Resuscitation Status - Order Detail: 07/06/18 12:43 Resuscitation Status Routine Resuscitation Status: FULL: Full Resuscitation MAR Reviewed: Yes Vital Signs & Weight: Vital Signs (12 hours) Temp Pulse Resp BP Pulse Ox 07/07/18 11:40 97.2 F L 59 L 20 134/62 99 07/07/18 08:00 97 07/07/18 07:08 97.5 F L 63 20 142/66 H 97 07/07/18 04:05 98.4 F 63 16 148/67 H 97 Weight Weight 149 lb 3 oz I&O: 07/06/18 07/07/18 07/08/18 06:59 06:59 06:59 Intake Total 1276 Output Total 1700 Balance -424 Result Diagrams: 07/07/18 05:02 07/07/18 05:02 Phys Exam - Physical Examination HEENT: PERRLA, moist MMs Neck: no JVD, supple Respiratory: no wheezing, no rales Cardiovascular: RRR, no significant murmur Gastrointestinal: soft, non-tender, positive bowel sounds Musculoskeletal: no edema, pulses present Neurological: non-focal, moves all 4 limbs Psychiatric: normal affect, A&O x 3 Dx/Plan (1) Hematuria Code(s): R31.9 - HEMATURIA, UNSPECIFIED Status: Acute (2) Hydronephrosis, left Code(s): N13.30 - UNSPECIFIED HYDRONEPHROSIS Status: Acute (3) Acute kidney injury Code(s): N17.9 - ACUTE KIDNEY FAILURE, UNSPECIFIED Status: Acute Comment: improved (4) H/O heart valve replacement with bioprosthetic valve Code(s): Z95.3 - PRESENCE OF XENOGENIC HEART VALVE Status: Chronic (5) COPD (chronic obstructive pulmonary disease) Status: Chronic (6) Hypertension Code(s): I10 - ESSENTIAL (PRIMARY) HYPERTENSION Status: Chronic Qualifiers: Hypertension type: essential hypertension Qualified Code(s): I10 - Essential (primary) hypertension (7) Hypothyroidism Code(s): E03.9 - HYPOTHYROIDISM, UNSPECIFIED Status: Chronic Qualifiers: Hypothyroidism type: unspecified Qualified Code(s): E03.9 - Hypothyroidism , unspecified (8) Atrial fibrillation Code(s): I48.91 - UNSPECIFIED ATRIAL FIBRILLATION Status: Chronic Qualifiers: Atrial fibrillation type: paroxysmal Qualified Code(s): I48.0 - Paroxysmal atrial fibrillation Comment: on amiodarone. NSR now - Plan recieved 2 u prbc yesterday -: urology is not planning any procedure per RN -: no aspirin as pt still has hematuria and has required total of 4 u prbc's -: continue lopressor, lipitor and amiodarone -: dc plan in am, H/H in am * . Review of Systems - Medications/Allergies Allergies/Adverse Reactions: Allergies Allergy/AdvReac Type Severity Reaction Status Date / Time No Known Allergies Allergy Verified 05/26/18 23:30 Medications: Current Medications Acetaminophen (Tylenol) 650 mg PO Q4H PRN PRN Reason: Headache/Fever/Mild Pain (1-3) Last Admin: 07/06/18 17:02 Dose: 650 mg Amiodarone HCl (Cordarone) 200 mg PO BID [facility] Last Admin: 07/07/18 08:07 Dose: 200 mg Atorvastatin Calcium (Lipitor) 10 mg PO DAILY [facility] Last Admin: 07/07/18 08:07 Dose: 10 mg Famotidine (Pepcid) 20 mg PO BID [facility] Last Admin: 07/07/18 08:07 Dose: 20 mg Guaifenesin/Dextromethorphan (Robitussin Dm) 15 ml PO Q4H PRN PRN Reason: Cough Metoprolol Succinate (Toprol Xl) 25 mg PO DAILY [facility] Last Admin: 07/07/18 08:07 Dose: 25 mg Senna/Docusate Sodium (Senokot S) 2 tab PO BID PRN PRN Reason: Constipation
[2018-07-08 04:48] LABS: Hemoglobin 9.2 g/dL (14.0-18.0)
[2018-07-08] MEDS: Acetaminophen 325 MG TAB PO PRN (08:48)
[2018-07-08] MEDS: Famotidine 20 MG TAB PO SCH (08:49)
[2018-07-08] MEDS: Amiodarone 200 MG TAB PO SCH (08:49)
[2018-07-08] MEDS: Atorvastatin Calcium 10 MG TAB PO SCH (08:49)
[2018-07-08 11:45] VITALS: BP 132/67; TEMP 97.9
--- NOTE | 2018-07-08 13:16 | PDOC.PN ---
- Subjective Encounter Start Date: 07/08/18 Encounter Start Time: 06:45 Subjective: no sob or abd pain -: feels better - Objective Resuscitation Status - Order Detail: 07/06/18 12:43 Resuscitation Status Routine Resuscitation Status: FULL: Full Resuscitation MAR Reviewed: Yes Vital Signs & Weight: Vital Signs (12 hours) Temp Pulse Resp BP BP Pulse Ox 07/08/18 11:42 97.9 F 63 18 132/67 99 07/08/18 08:40 97 07/08/18 07:42 97.8 F 65 20 137/65 97 07/08/18 04:00 97.6 F 69 16 110/68 99 Weight Weight 149 lb 3 oz I&O: 07/07/18 07/08/18 07/09/18 06:59 06:59 06:59 Intake Total 1276 1010 Output Total 1700 550 250 Balance -424 460 -250 Result Diagrams: 07/08/18 04:28 07/07/18 05:02 Phys Exam - Physical Examination HEENT: PERRLA, moist MMs Neck: no JVD, supple Respiratory: no wheezing, no rales Cardiovascular: RRR, no significant murmur Gastrointestinal: soft, non-tender, positive bowel sounds Musculoskeletal: no edema, pulses present Neurological: non-focal, moves all 4 limbs Psychiatric: normal affect, A&O x 3 Dx/Plan (1) Hematuria Code(s): R31.9 - HEMATURIA, UNSPECIFIED Status: Acute (2) Hydronephrosis, left Code(s): N13.30 - UNSPECIFIED HYDRONEPHROSIS Status: Acute (3) Acute kidney injury Code(s): N17.9 - ACUTE KIDNEY FAILURE, UNSPECIFIED Status: Acute Comment: improved (4) H/O heart valve replacement with bioprosthetic valve Code(s): Z95.3 - PRESENCE OF XENOGENIC HEART VALVE Status: Chronic (5) COPD (chronic obstructive pulmonary disease) Status: Chronic (6) Hypertension Code(s): I10 - ESSENTIAL (PRIMARY) HYPERTENSION Status: Chronic Qualifiers: Hypertension type: essential hypertension Qualified Code(s): I10 - Essential (primary) hypertension (7) Hypothyroidism Code(s): E03.9 - HYPOTHYROIDISM, UNSPECIFIED Status: Chronic Qualifiers: Hypothyroidism type: unspecified Qualified Code(s): E03.9 - Hypothyroidism , unspecified (8) Atrial fibrillation Code(s): I48.91 - UNSPECIFIED ATRIAL FIBRILLATION Status: Chronic Qualifiers: Atrial fibrillation type: paroxysmal Qualified Code(s): I48.0 - Paroxysmal atrial fibrillation Comment: on amiodarone. NSR now - Plan hemostable -: dc pt home, to f/u with -: continue toprol, amiodarone, lipitor * . Review of Systems - Medications/Allergies Allergies/Adverse Reactions: Allergies Allergy/AdvReac Type Severity Reaction Status Date / Time No Known Allergies Allergy Verified 05/26/18 23:30 Medications: Current Medications Acetaminophen (Tylenol) 650 mg PO Q4H PRN PRN Reason: Headache/Fever/Mild Pain (1-3) Last Admin: 07/08/18 08:48 Dose: 650 mg Amiodarone HCl (Cordarone) 200 mg PO BID [facility] Last Admin: 07/08/18 08:49 Dose: 200 mg Atorvastatin Calcium (Lipitor) 10 mg PO DAILY [facility] Last Admin: 07/08/18 08:49 Dose: 10 mg Famotidine (Pepcid) 20 mg PO BID [facility] Last Admin: 07/08/18 08:49 Dose: 20 mg Guaifenesin/Dextromethorphan (Robitussin Dm) 15 ml PO Q4H PRN PRN Reason: Cough Metoprolol Succinate (Toprol Xl) 25 mg PO DAILY [facility] Last Admin: 07/08/18 08:49 Dose: 25 mg Senna/Docusate Sodium (Senokot S) 2 tab PO BID PRN PRN Reason: Constipation
--- NOTE | 2018-07-10 07:25 | DIS ---
DATE OF ADMISSION: 07/07/2018 DATE OF DISCHARGE: 07/08/2018 DISCHARGE DISPOSITION: To home. PRIMARY DISCHARGE DIAGNOSIS: Gross hematuria with acute kidney injury and left hydronephrosis. SECONDARY DISCHARGE DIAGNOSES: History of aortic bioprosthetic valve, chronic obstructive pulmonary disease, hypertension, hypothyroidism, chronic atrial fibrillation, in sinus. PROCEDURES DONE DURING HOSPITALIZATION: CT angiogram of the abdomen with contrast done showed [id number] worsening left hydronephrosis secondary to blood clot in the proximal ureter. No evidence of AAA or aneurysm of the aortic branch vessels. Ultrasound abdomen done showed interval worsening of severe left hydronephrosis. H and H were 6 and 21 on admission with discharge number of 9 and 29, platelet count 407, MCV is 88, BUN 13, creatinine 1.4. DISCHARGE MEDICATIONS: 1. Cozaar 50 mg p.o. daily. 2. Amiodarone 200 mg p.o. twice daily. 3. Aspirin 81 mg p.o. daily. 4. Atorvastatin 10 mg p.o. daily. 5. Toprol-XL 25 mg p.o. daily. ALLERGIES: NO KNOWN DRUG ALLERGIES. INPATIENT CONSULT: Dr. Bryson Garcia for Urology. DISCHARGE PLAN: The patient to follow up with Dr. Garcia in 1 week. He also needs to follow up with primary care physician in one week. BRIEF COURSE DURING HOSPITALIZATION: The patient initially got admitted with complaints of left flank pain. He also had bleeding in his Shipman catheter, which got worse from 24 hours prior to hospitalization. He has had Shipman catheter placed two weeks back during his previous hospitalization here. The patient also had transurethral resection of bladder tumor during his last hospitalization here. In view of this history and hemoglobin of 6, the patient was admitted to the hospital. He was given [address] cell[address] Garcia was consulted. Initial CT angio of the abdomen and ultrasound of both revealed left hydronephrosis with blood clot. 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 There is no intervention plan during this hospitalization. The patient needs close followup with Dr. Garcia and I have communicated and counseled him regarding this. He is otherwise hemodynamically stable with stable serial H and H. The patient is ambulating in the room and eating well. Please see a [id number] documentation for the day of discharge on [place]. Job ID: [id number]
== END 2018-07-08 13:28 | disposition home or self-care (01) | DRG 812 ==
LOC: ERS 07:19 → 2SW 10:44 → OBSVTOIN 07-07 07:40 → T4-A 07-07 19:58
PROVIDERS: ADMIT Internal Medicine; ATTEND Internal Medicine
PROC: 30233N1 Transfusion of Nonautologous Red Blood Cells into Peripheral Vein, Percutaneous Approach (ICD-10-PCS; principal; 2018-07-07)
DX: D62 Acute posthemorrhagic anemia (principal); N17.9 Acute kidney failure, unspecified; N13.30 Unspecified hydronephrosis; N28.89 Other specified disorders of kidney and ureter; R31.0 Gross hematuria; J44.9 Chronic obstructive pulmonary disease, unspecified; I10 Essential (primary) hypertension; E03.9 Hypothyroidism, unspecified; I48.0 Paroxysmal atrial fibrillation; Z87.891 Personal history of nicotine dependence; Z79.82 Long term (current) use of aspirin; Z79.899 Other long term (current) drug therapy; Z95.3 Presence of xenogenic heart valve
CPT/HCPCS: 36415; 36430; 51798; 74175; 76770; 80048; 80053; 81003; 81015; 85014; 85018; 85025; 86850; 86900; 86901; 87086; 93005; P9016; Q9966